=== PATIENT | female | born 1945 | race Caucasian/White ===

== ENCOUNTER → 2016-07-21 | Outpatient (CLI) | payer MEDICARE, BC ==
--- NOTE | 2016-08-08 02:23 | ECWPNPC ---
PATIENT NAME: MATT MOORE : 1945 GENDER: FEMALE VISIT DATE: 07/21/2016 DISCHARGE DATE: 07/21/16 1009 VISIT LOCKED DATE TIME: PHYSICIAN: ELMIRA ANDREWS RESOURCE: ELMIRA ANDREWS REASON FOR APPOINTMENT 1. BACK HISTORY OF PRESENT ILLNESS HISTORY OF PRESENT ILLNESS: PAIN THE PATIENT DESCRIBES THE PAIN... FALL RISK SCREENING: SCREENING :NO FALLS IN THE PAST YEAR TODAY'S VISIT: NOTES: S/P . RATES PAIN TODAY 07/25 IS NOT CURRENTLY EXPERIENCING THE THROBBING OR RADIATION OF PAIN INTO LEFT LEG. NO N/T INTO LEGS. NO RECENT FALLS.. CURRENT MEDICATIONS TAKING ALPHAGAN P 0.1 % SOLUTION 1 DROP INTO AFFECTED EYE OPHTHALMIC BID TAKING BYETTA 10 MCG PEN 10 MCG/0.04ML SOLUTION PEN-INJECTOR 0.02 ML UP TO 1 HOUR BEFORE BREAKFAST AND EVENING MEAL SUBCUTANEOUS TWICE A DAY TAKING MULTIVITAMIN ADULT TABLET ORALLY TAKING VITAMIN D 1000 UNIT TABLET 1 TABLET ORALLY ONCE A DAY TAKING VITAMIN B COMPLEX TABLET ORALLY DAILY TAKING VITAMIN C & D3/OMID HIPS 500-1000-20 MG-UNIT-MG CAPSULE ORALLY DAILY TAKING COQ-10 100 MG CAPSULE 1 CAPSULE WITH A MEAL ORALLY ONCE A DAY TAKING [id number] COMPLEX TABLET ORALLY DAILY TAKING ASPIR-81 81 MG TABLET DELAYED RELEASE 1 TABLET ORALLY ONCE A DAY TAKING FEMARA 2.5 MG TABLET 1 TABLET ORALLY ONCE A DAY TAKING METFORMIN HCL ER 750 MG TABLET EXTENDED RELEASE 24 HOUR ORAL BID TAKING CRESTOR 10 MG TABLET ORAL ONCE DAILY TAKING RAMIPRIL 5 MG CAPSULE ORAL ONCE DAILY TAKING SERTRALINE HCL 50 MG TABLET ORAL ONCE DAILY TAKING LUMIGAN 0.01 % SOLUTION OPHTHALMIC ONCE DAILY TAKING SPIRONOLACTONE 25 MG TABLET ORAL ONCE DAILY TAKING ATENOLOL 25 MG TABLET ORAL ONCE DAILY NOT-TAKING OMEGA 3-6-9 COMPLEX CAPSULE ORALLY DAILY NOT-TAKING MELOXICAM 15 MG TABLET 1 TABLET ORALLY ONCE A DAY NEEDED MEDICATION LIST REVIEWED AND RECONCILED WITH THE PATIENT PAST MEDICAL HISTORY BREAST CANCER LEFT WITH LYMPHEDEMA DM HTN ALLERGIES NONE SOCIAL HISTORY GENERAL: TOBACCO USE ARE YOU A:NONSMOKER LEARNING BARRIERS / SPECIAL NEEDS ORIENTED TO PLAN OF CARE: PATIENT, PAIN MANAGEMENT PATIENT, ORIENTED TO PLAN OF CARE: PATIENT, PAIN MANAGEMENT PATIENT. NEW PATIENT PAIN DIARY TODAY'S VISITNOTES FROM 0-10, WHAT LEVEL IS YOUR PAIN TODAY?0 PAIN CLINIC PFS, CLERGY, PUBLIC HEALTH REFERRALS PFS REFERRAL NEEDED?NO CLERGY REFERRAL NEEDED?NO PUBLIC HEALTH REFERRAL NEEDED?NO WAS THE PROVIDER NOTIFIED OF ANY PERTINENT INFO?NO PFS REFERRAL NEEDED?NO CLERGY REFERRAL NEEDED?NO PUBLIC HEALTH REFERRAL NEEDED?NO WAS THE PROVIDER NOTIFIED OF ANY PERTINENT INFO?NO REVIEW OF SYSTEMS CONSTITUTIONAL: ANY CHANGE IN YOUR MEDICAL CONDITION? NO . CHILLS NO . FEVER NO . INFECTION: DO YOU HAVE NEW INFECTIONS? NO . DO YOU HAVE HISTORY OF MRSA? NO . MUSCULOSKELETAL: ANY NEW PATTERNS OF PAIN OR NUMBNESS? NO . GASTROENTEROLOGY: ANY NEW CHANGE IN BOWEL CONTROL? NO . GENITOURINARY: ANY NEW CHANGE IN BLADDER CONTROL? NO . IS THERE A CHANCE YOU COULD BE ? NO . HEMATOLOGY/LYMPH: DO YOU TAKE ANY BLOOD THINNERS? (FOR EXAMPLE- COUMADIN, PLAVIX, AGGRENOX, PLATEL, PRADAXA, OR XARELTO) NO . WHEN WAS YOUR LAST DOSE? DATE: TIME: . NEUROLOGY: HAVE YOU FALLEN IN THE PAST 6 MONTHS? NO . ANY NEW EXTREMITY NUMBNESS OR WEAKNESS? NO . CARDIOLOGY: DO YOU HAVE A PACEMAKER OR DEFIBRILLATOR? NO . RESPIRATORY: HAVE YOU BEEN SICK IN THE PAST WEEK? NO . FEVER NO . FLU LIKE SYMPTOMS? NO . COUGH NO . INTEGUMENTARY: DO YOU HAVE ANY RASHES OR OPEN SORES? NO . ALLERGIC/IMMUNO: ARE YOU ALLERGIC TO SHELLFISH OR IV DYE? NO . ANY NEW ALLERGIES? NO . PSYCHIATRIC: DO YOU HAVE THOUGHTS OF HURTING YOURSELF OR SOMEONE ELSE? NO . ARE YOU ABUSED, NEGLECTED, OR IN AN UNSAFE ENVIRONMENT? NO . ENDOCRINOLOGY: ARE YOU DIABETIC? YES A1C IN GOOD CONTROL . OTHER: DO YOU NEED ANY PRESCRIPTIONS? NO . IF YES, PLEASE LIST: ____ . ANY NEW PROBLEMS WITH YOUR MEDICATIONS? NO . WHEN DID YOU LAST EAT? ____ . WHEN DID YOU LAST DRINK? ____ . WHAT DID YOU LAST DRINK? ____ . NAME OF PERSON DRIVING YOU HOME? ____ . DO YOU HAVE ANY OTHER QUESTIONS OR CONCERNS NO . REVIEWED BY: PROVIDER: ELMIRA TINAJERO . VITAL SIGNS WT 287 LBS, HT 65 IN, BP 128/86 MM HG, HR 88 /MIN, RR 16 /MIN, TEMP 98 F,6 F, OXYGEN SAT % 98, SAFE IN ENV? (Y/N) Y, REVIEWED BY: KG. EXAMINATION GENERAL EXAMINATION: PSYCHALERT , ORIENTED X 3 , APPROPRIATE MOOD AND AFFECT . LUNGS:CLEAR TO AUSCULTATION BILATERALLY. HEART:HEART RATE REGULAR. MUSCULOSKELETAL:MUSCLE STRENGTH TESTING 5/5 BILATERAL LOWER EXTREMITIES. ABLE TO RISE EASILY TO STANDING POSITION. MILD TENDERNESS WITH PALPATION OVER SACRUM AND BILATERAL SACRAL ILIAC JOINTS. EXTREMITIES:TRACE-1+EDEMA BILATERAL LOWER EXTREMITIES - LYMEDEMA PRESENT LEFT UPPER EXTREMITY.. SKIN:NO BLISTERS OR OPEN LESIONS. ASSESSMENTS SPONDYLOSIS WITHOUT MYELOPATHY OR RADICULOPATHY, LUMBAR REGION - M47.816 (PRIMARY) SPONDYLOSIS WITHOUT MYELOPATHY OR RADICULOPATHY, LUMBOSACRAL REGION - M47.817 TREATMENT SPONDYLOSIS WITHOUT MYELOPATHY OR RADICULOPATHY, LUMBAR REGION NOTES: CONTINUE EXERCISES AND WALKING. , FALLS CARE PLAN: 1. RECOMMEND REMOVING ALL THROW RUGS. 2. RECOMMEND NIGHT LIGHTS 3. RECOMMEND WEARING RUBBER SOLED SHOES AND TO NOT GO BAREFOOT. 4.. ADVISED TO CHANGE POSITION SLOWLY FROM SUPINE TO STANDING TO AVOID DIZZINESS. 5. ADVISED TO USE ASSISTIVE DEVICE SUCH CANE OR WALKER NEEDED., #128 - SCREENING BMI AND F/U PLAN IN : BMI ABOVE NORMAL TODAY. DISCUSSED WITH PATIENT NUTRITIONAL FOOD CHOICES AND PORTION CONTROL TO ASSIST WITH WEIGHT LOSS. RECCOMMENDED REDUCING SALT, SUGAR, SODA INTAKE. RECOMMEND INCREASE ACTIVITY TO INCLUDE WALKING ON A REGULAR BASIS. PROCEDURE CODES FA211 ESTABILISHED PATIENT [facility] CHARGE G8783 BP SCR PRFRM RCMDD DEFIND SCR INTVL G8730 PAIN ASSESS POS TOOL F/U PLAN DOC 3016F PT SCRND [place]HL[place] USE 1123F ACP DISCUSS/DSCN MKR DOCD 1036F TOBACCO NON-USER 0518F FALL PLAN OF CARE DOCD G8427 DOC MEDS VERIFIED W/PT OR RE G8417 BMI >=30 CALCUATE W/FOLLOWUP 3288F FALL RISK ASSESSMENT DOCD FOLLOW UP 3 MONTHS ELECTRONICALLY SIGNED BY PATTIE PRECIADO ON 08/07/2016 AT 08:36 AM EST DISCLAIMER : THIS IS A VISIT SUMMARY EXTRACTED FROM THE [employer] CHART. IT IS NOT A COPY OF THE [employer] PROGRESS NOTE. MTDD
== END ==
LOC: M PAIN 09:00
PROVIDERS: ATTEND Nurse Practitioner Family
DX: Z09 Encounter for follow-up examination after completed treatment for conditions other than malignant neoplasm (principal); M47.816 Spondylosis without myelopathy or radiculopathy, lumbar region; M47.817 Spondylosis without myelopathy or radiculopathy, lumbosacral region; E11.9 Type 2 diabetes mellitus without complications; I10 Essential (primary) hypertension; Z79.82 Long term (current) use of aspirin; Z79.84 Long term (current) use of oral hypoglycemic drugs; Z85.3 Personal history of malignant neoplasm of breast

== ENCOUNTER → 2016-08-31 | Outpatient (CLI) | payer MEDICARE, BC ==
[~2016-08-31] MED LIST: ALPH0.156 OU; ASPI81TA85 PO; ATEN25TA PO; BIMA01SOL OU; BYET10IN2 SC; COQ1150C PO; GLUC1CAP PO; METF750T PO; MULT1TAB18 PO; RAMI5CA PO; ROSU10TA PO; SERT-141 PO; SPIR25TA2 PO; VITA100041 PO; VITA500T68 PO; VITATAB11 PO; [UNRECOGNIZED DRUG - OTHER] PO
[2016-08-31 13:30] LABS: CALCIUM LEVEL 9.6 MG/DL (8.8-10.2); CREATININE FOR GFR 1.02 MG/DL (0.55-1.02); GLOMERULAR FILTRATION RATE 56.9 (>39); POTASSIUM SERUM 4.6 MEQ/L (3.5-5.1)
--- NOTE | 2016-08-31 17:28 | ECGEPIP ---
Stationary ECG Study [facility] Test Date: 2016-08-31 Pat Name: MATT MOORE Department: Room: - Gender: F Gallery Host: [facility] : 1945 Requested By: TERESA Henderson Order Number: [id number] Reading MD: Anibal Vences Measurements Intervals [place] Rate: 85 P: 37 IN: 137 QRS: 15 QRSD: 86 T: 20 QT: 351 QTc: 419 Interpretive Statements SINUS RHYTHM Somewhat low voltages Prominent R wave in V3 No change from 09/25/15 Electronically Signed On 08-31-2016 17:27:56 EST by Anibal Vences
== END ==
LOC: M LAB 11:45
PROVIDERS: ATTEND Ophthalmology
DX: Z01.818 Encounter for other preprocedural examination (principal); H25.13 Age-related nuclear cataract, bilateral

== ENCOUNTER → 2016-09-12 | Outpatient (CLI) | payer MEDICARE, BC ==
[~2016-09-12] VITALS: Ht 165.1 cm; Wt 130.2 kg
[~2016-09-12] MED LIST changes: +LR 1,000 ML IV SCH
--- NOTE | 2016-09-12 15:06 | ROOR ---
Patient Name: Inez Rg Procedure Date: 09/12/2016 2:30 PM Date of : 1945 Age: 70 Room: [facility] Gender: Female Note Status: Finalized Procedure: Upper GI endoscopy Indications: Dysphagia, Abnormal UGI series Providers: Jase Anglin MD Referring MD: SUMAN CRUZ JR, MD Requesting Provider: Medicines: Monitored Anesthesia Care Complications: No immediate complications. Procedure: Pre-Anesthesia Assessment: - Prior to the procedure, a History and Physical was performed, and patient medications and allergies were reviewed. The patient is competent. The risks and benefits of the procedure and the sedation options and risks were discussed with the patient. All questions were answered and informed consent was obtained. Patient identification and proposed procedure were verified by the physician, the nurse and the central office operator supervisor in the procedure room. Mental Status Examination: alert and oriented. Airway Examination: normal oropharyngeal airway and neck mobility. CV Examination: regular rate and rhythm. Prophylactic Antibiotics: The patient does not require prophylactic antibiotics. Prior Anticoagulants: The patient has taken no previous anticoagulant or antiplatelet agents. ASA Grade Assessment: III - A patient with severe systemic disease. After reviewing the risks and benefits, the patient was deemed in satisfactory condition to undergo the procedure. The anesthesia plan was to use monitored anesthesia care (MAC). Immediately prior to administration of medications, the patient was re-assessed for adequacy to receive sedatives. The heart rate, respiratory rate, oxygen saturations, blood pressure, adequacy of pulmonary ventilation, and response to care were monitored throughout the procedure. The physical status of the patient was re-assessed after the procedure. The Endoscope was introduced through the mouth, and advanced to the third part of duodenum. The upper GI endoscopy was accomplished without difficulty. The patient tolerated the procedure well. Findings: One mild benign-appearing, intrinsic stenosis was found 37 cm from the incisors. This measured less than one cm (in length) and was traversed. A TTS dilator was passed through the scope. Dilation with an 18-19-20 mm balloon dilator was performed to 18 mm. A 3 cm hiatal hernia was present. The exam of the stomach was otherwise normal. The first portion of the duodenum, second portion of the duodenum and third portion of the duodenum were normal. Impression: - Benign-appearing esophageal stenosis. Dilated. - 3 cm hiatal hernia. - Normal first portion of the duodenum, second portion of the duodenum and third portion of the duodenum. - No specimens collected. Recommendation: - Discharge patient to home. - Soft diet for 2 days. - Continue present medications. - Return to endoscopist in 3 weeks. Jase Anglin MD 09/12/2016 3:06:16 PM Number of Addenda: 0 Note Initiated On: 09/12/2016 2:30 PM Estimated Blood Loss: Estimated blood loss was minimal.
[2016-09-12 15:15] VITALS: BP 146/99
== END | disposition home or self-care (01) ==
LOC: M OPP 11:59
PROVIDERS: ATTEND Surgery
DX: K44.9 Diaphragmatic hernia without obstruction or gangrene (principal); K22.2 Esophageal obstruction; I10 Essential (primary) hypertension; E78.00 Pure hypercholesterolemia, unspecified; M19.90 Unspecified osteoarthritis, unspecified site; E66.9 Obesity, unspecified; H40.9 Unspecified glaucoma; Z79.899 Other long term (current) drug therapy; Z79.82 Long term (current) use of aspirin; Z79.84 Long term (current) use of oral hypoglycemic drugs

== ENCOUNTER → 2016-09-14 | Day surgery (SDC) | payer MEDICARE, BC ==
[~2016-09-14] VITALS: Ht 165.1 cm; Wt 130.2 kg
[~2016-09-14] MED LIST changes: +ACETYLCHOLINE OPHTH SOLN 1% 2ML As Ordered ONE; +ACETYLCHOLINE OPHTH SOLN 1% 2ML XX ONE; +BALANCED SALT IRRIGATION SOLUTION 500ML BAG (FOR OR EYE MACHINE) As Ordered ONE; +BALANCED SALT IRRIGATION SOLUTION 500ML BAG (FOR OR EYE MACHINE) XX ONE; +CEFUROXIME 1MG/0.1ML INTRACAMERAL INJ As Ordered ONE; +CEFUROXIME 1MG/0.1ML INTRACAMERAL INJ ICAM ONE; +CYCLOPENTOLATE 2% OPHTH SOLN As Ordered ONE; +CYCLOPENTOLATE 2% OPHTH SOLN OS ONE; +D5W/0.2% SODIUM CHLORIDE 250 ML IV SCH; +HEALON DUET (HEALON 10MG/ML 0.55ML & HEALON ENDOCOAT 30MG/ML 0.85ML) As Ordered ONE; +HEALON DUET (HEALON 10MG/ML 0.55ML & HEALON ENDOCOAT 30MG/ML 0.85ML) IO ONE; +LIDOCAINE 0.75%/EPINEPHRINE 0.025% IN BSS 1ML SYR INTRACAMERAL (OR ONLY) As Ordered ONE; +LIDOCAINE 0.75%/EPINEPHRINE 0.025% IN BSS 1ML SYR INTRACAMERAL (OR ONLY) ICAM ONE; +LIDOCAINE 4% INJ 5 ML AMP XX ONE; -LR 1,000 ML IV SCH; +MIDAZOLAM INJ 2 MG/2 ML VIAL (J2250) As Ordered ONE; +OFLOXACIN 0.3 % (OCUFLOX) OPTH SOL 5ML OS ONE; +PHENYLEPHRINE 2.5% OPHTH SOL 2ML OS ONE; +POVIDONE-IODINE 5% OPHTH PREP SOL 30ML As Ordered ONE; +PROPARACAINE 0.5% OPHTH SOL 15ML OS ONE; -SERT-141 PO; +SERT50TA PO; +TOBRADEX OPHTH OINT 3.5 GM As Ordered ONE; +TOBRADEX OPHTH OINT 3.5 GM XX ONE; +TROPICAMIDE 1% OPHTH SOLN 2 ML OS ONE; +fentaNYL 100 MCG/2 ML INJECTION (J3010) As Ordered ONE
[2016-09-14 13:45] VITALS: BP 118/61
--- NOTE | 2016-09-15 09:31 | RO ---
DATE OF PROCEDURE: 09/14/2016 PREOPERATIVE DIAGNOSES: 1. Visually significant nuclear sclerotic cataract left eye. 2. Pseudoexfoliation, left eye POSTOPERATIVE DIAGNOSES: 1. Visually significant nuclear sclerotic cataract left eye. 2. Pseudoexfoliation, left eye PROCEDURE: Cataract extraction with use of phacoemulsification and placement of intraocular lens ZCB00, 20.5 diopter eye. SURGEON: Willi Hester DO RADAR AIR TRAFFIC CONTROLLER: ANESTHESIA: Local with monitored anesthesia care (MAC). COMPLICATIONS: None. POSTOPERATIVE CONDITION: Stable. INDICATION FOR SURGERY: Blurred vision left eye affecting patient's activities of daily living. DESCRIPTION OF PROCEDURE: The patient was seen in the preoperative area and properly identified. The correct operative eye was identified and marked. Attention was turned to that eye. The patient received topical antibiotics in the preoperative area. The patient then received topical dilating drops consisting of tropicamide and phenylephrine. The patient was then transferred to the operating room. The correct side was reidentified. The patient received topical anesthetics and antibiotics on the surface of the eye. The eye was prepped and draped in a sterile fashion. The upper and lower eyelids were isolated with Tegaderm tape, and the lids were held open with an adjustable speculum. Using a sideport blade, a paracentesis incision was made. Intraocular preservative-free lidocaine was then injected into the anterior chamber. Viscoelastic was then injected into the anterior chamber through the paracentesis. Using a 2.65 mm sharp-tipped keratome, the anterior chamber was entered via a temporal clear corneal incision. A continuous curvilinear capsulorrhexis was created with the aid of a 26-gauge cystotome and Utrata forceps. Hydrodissection was performed with balanced salt solution (BSS) on a blunt cannula until the nucleus was freely mobile. The crystalline lens was phacoemulsified and aspirated. Additional cohesive viscoelastic was placed into the capsular bag to deepen it. A ZCB00, 20.5 diopter lens was placed into the capsular bag and confirmed by visualizing the continuous curvilinear capsulorrhexis. Additional irrigation and aspiration was used to remove cortical material and remaining viscoelastic. The clear corneal incision was hydrated with BSS on a blunt cannula. The lens was well positioned. The incisions were then tested for leaks and found to be negative. The eye was then palpated for appropriate pressure and adjusted accordingly with BSS. The eyelid speculum was then carefully removed. Tobradex ointment was placed in the eye. An eye patch and shield were then secured over the eye. The patient tolerated the procedure well and was discharged to the recovery unit in a stable condition. JACINDA
== END | disposition home or self-care (01) ==
LOC: M SDC 08:43
PROVIDERS: ATTEND Ophthalmology
DX: H25.12 Age-related nuclear cataract, left eye (principal); H25.89 Other age-related cataract; E11.9 Type 2 diabetes mellitus without complications; I10 Essential (primary) hypertension; E78.5 Hyperlipidemia, unspecified; K44.9 Diaphragmatic hernia without obstruction or gangrene; Z92.21 Personal history of antineoplastic chemotherapy; Z92.3 Personal history of irradiation; Z85.3 Personal history of malignant neoplasm of breast; Z79.899 Other long term (current) drug therapy; Z79.82 Long term (current) use of aspirin
CPT/HCPCS: 66984; J2250; J3010; V2632

== ENCOUNTER → 2016-09-27 | Outpatient (CLI) | payer MEDICARE, BC ==
[~2016-09-27] MED LIST changes: -ACETYLCHOLINE OPHTH SOLN 1% 2ML As Ordered ONE; -ACETYLCHOLINE OPHTH SOLN 1% 2ML XX ONE; -BALANCED SALT IRRIGATION SOLUTION 500ML BAG (FOR OR EYE MACHINE) As Ordered ONE; -BALANCED SALT IRRIGATION SOLUTION 500ML BAG (FOR OR EYE MACHINE) XX ONE; -CEFUROXIME 1MG/0.1ML INTRACAMERAL INJ As Ordered ONE; -CEFUROXIME 1MG/0.1ML INTRACAMERAL INJ ICAM ONE; -CYCLOPENTOLATE 2% OPHTH SOLN As Ordered ONE; -CYCLOPENTOLATE 2% OPHTH SOLN OS ONE; -D5W/0.2% SODIUM CHLORIDE 250 ML IV SCH; -HEALON DUET (HEALON 10MG/ML 0.55ML & HEALON ENDOCOAT 30MG/ML 0.85ML) As Ordered ONE; -HEALON DUET (HEALON 10MG/ML 0.55ML & HEALON ENDOCOAT 30MG/ML 0.85ML) IO ONE; -LIDOCAINE 0.75%/EPINEPHRINE 0.025% IN BSS 1ML SYR INTRACAMERAL (OR ONLY) As Ordered ONE; -LIDOCAINE 0.75%/EPINEPHRINE 0.025% IN BSS 1ML SYR INTRACAMERAL (OR ONLY) ICAM ONE; -LIDOCAINE 4% INJ 5 ML AMP XX ONE; -MIDAZOLAM INJ 2 MG/2 ML VIAL (J2250) As Ordered ONE; -OFLOXACIN 0.3 % (OCUFLOX) OPTH SOL 5ML OS ONE; -PHENYLEPHRINE 2.5% OPHTH SOL 2ML OS ONE; -POVIDONE-IODINE 5% OPHTH PREP SOL 30ML As Ordered ONE; -PROPARACAINE 0.5% OPHTH SOL 15ML OS ONE; -TOBRADEX OPHTH OINT 3.5 GM As Ordered ONE; -TOBRADEX OPHTH OINT 3.5 GM XX ONE; -TROPICAMIDE 1% OPHTH SOLN 2 ML OS ONE; -fentaNYL 100 MCG/2 ML INJECTION (J3010) As Ordered ONE
== END ==
LOC: M SLEEP 19:28
PROVIDERS: ATTEND Nurse Practitioner Adult Health
DX: G47.30 Sleep apnea, unspecified (principal)

== ENCOUNTER → 2016-10-05 | Day surgery (SDC) | payer MEDICARE, BC ==
[~2016-10-05] VITALS: Ht 165.1 cm; Wt 59.2 kg
[~2016-10-05] MED LIST changes: +ACETYLCHOLINE OPHTH SOLN 1% 2ML As Ordered ONE; +BALANCED SALT IRRIGATION SOLUTION 500ML BAG (FOR OR EYE MACHINE) As Ordered ONE; +CEFUROXIME 1MG/0.1ML INTRACAMERAL INJ As Ordered ONE; +D5W/0.2% SODIUM CHLORIDE 1,000 ML IV SCH; +HEALON DUET (HEALON 10MG/ML 0.55ML & HEALON ENDOCOAT 30MG/ML 0.85ML) As Ordered ONE; +LIDOCAINE 0.75%/EPINEPHRINE 0.025% IN BSS 1ML SYR INTRACAMERAL (OR ONLY) As Ordered ONE; +MIDAZOLAM INJ 2 MG/2 ML VIAL (J2250) As Ordered ONE; +OFLOXACIN 0.3 % (OCUFLOX) OPTH SOL 5ML OD ONE; +PHENYLEPHRINE 2.5% OPHTH SOL 2ML OD ONE; +POVIDONE-IODINE 5% OPHTH PREP SOL 30ML As Ordered ONE; +PROPARACAINE 0.5% OPHTH SOL 15ML OD ONE; +TOBRADEX OPHTH OINT 3.5 GM As Ordered ONE; +TROPICAMIDE 1% OPHTH SOLN 2 ML OD ONE; +fentaNYL 100 MCG/2 ML INJECTION (J3010) As Ordered ONE
[2016-10-05 10:25] VITALS: BP 138/71
--- NOTE | 2016-10-05 23:52 | RO ---
DATE OF PROCEDURE: 10/05/2016 PREOPERATIVE DIAGNOSES: 1. Visually significant nuclear sclerotic cataract of the right eye. 2. Pseudoexfoliation, right eye POSTOPERATIVE DIAGNOSES: 1. Visually significant nuclear sclerotic cataract of the right eye. 2. Pseudoexfoliation, right eye PROCEDURE: Cataract extraction with use of phacoemulsification and placement of intraocular lens ZCB00, 21.0 diopters, right eye. SURGEON: Willi Hester DO CLINICAL QUALITY ASSURANCE SPECIALIST: ANESTHESIA: Local with monitored anesthesia care (MAC). COMPLICATIONS: None. POSTOPERATIVE CONDITION: Stable. INDICATION FOR SURGERY: Blurred vision right eye affecting patient's activities of daily living. DESCRIPTION OF PROCEDURE: The patient was seen in the preoperative area and properly identified. The correct operative eye was identified and marked. Attention was turned to that eye. The patient received topical antibiotics in the preoperative area. The patient then received topical dilating drops consisting of tropicamide and phenylephrine. The patient was then transferred to the operating room. The correct side was reidentified. The patient received topical anesthetics and antibiotics on the surface of the eye. The eye was prepped and draped in a sterile fashion. The upper and lower eyelids were isolated with Tegaderm tape, and the lids were held open with an adjustable speculum. Using a sideport blade, a paracentesis incision was made. Intraocular preservative-free lidocaine was then injected into the anterior chamber. Viscoelastic was then injected into the anterior chamber through the paracentesis. Using a 2.65 mm sharp-tipped keratome, the anterior chamber was entered via a temporal clear corneal incision. A continuous curvilinear capsulorrhexis was created with the aid of a 26-gauge cystotome and Utrata forceps. Hydrodissection was performed with balanced salt solution (BSS) on a blunt cannula until the nucleus was freely mobile. The crystalline lens was phacoemulsified and aspirated. Additional cohesive viscoelastic was placed into the capsular bag to deepen it. A ZCB00 21.0 diopter lens was placed into the capsular bag and confirmed by visualizing the continuous curvilinear capsulorrhexis. Additional irrigation and aspiration was used to remove cortical material and remaining viscoelastic. The clear corneal incision was hydrated with BSS on a blunt cannula. The lens was well positioned. The incisions were then tested for leaks and found to be negative. The eye was then palpated for appropriate pressure and adjusted accordingly with BSS. Cefuroxime, 0.5cc was injected into the anterior chamber. Resure sealant was placed on the main incision to close it. The eyelid speculum was then carefully removed. Tobradex ointment was placed in the eye. An eye patch and shield were then secured over the eye. The patient tolerated the procedure well and was discharged to the recovery unit in a stable condition. JACINDA
== END | disposition home or self-care (01) ==
LOC: M SDC 07:56
PROVIDERS: ATTEND Ophthalmology
DX: H25.12 Age-related nuclear cataract, left eye (principal); H25.89 Other age-related cataract; E11.9 Type 2 diabetes mellitus without complications; I10 Essential (primary) hypertension; E78.5 Hyperlipidemia, unspecified; Z79.82 Long term (current) use of aspirin; K44.9 Diaphragmatic hernia without obstruction or gangrene; Z92.3 Personal history of irradiation; Z85.3 Personal history of malignant neoplasm of breast; Z92.21 Personal history of antineoplastic chemotherapy; Z79.899 Other long term (current) drug therapy; I89.0 Lymphedema, not elsewhere classified
CPT/HCPCS: 66984; J2250; J3010; V2632

== ENCOUNTER → 2016-12-06 | Outpatient (CLI) | payer MEDICARE, BC ==
[~2016-12-06] MED LIST changes: -ACETYLCHOLINE OPHTH SOLN 1% 2ML As Ordered ONE; -BALANCED SALT IRRIGATION SOLUTION 500ML BAG (FOR OR EYE MACHINE) As Ordered ONE; -CEFUROXIME 1MG/0.1ML INTRACAMERAL INJ As Ordered ONE; +CRES10TA32 PO; -D5W/0.2% SODIUM CHLORIDE 1,000 ML IV SCH; -HEALON DUET (HEALON 10MG/ML 0.55ML & HEALON ENDOCOAT 30MG/ML 0.85ML) As Ordered ONE; -LIDOCAINE 0.75%/EPINEPHRINE 0.025% IN BSS 1ML SYR INTRACAMERAL (OR ONLY) As Ordered ONE; -MIDAZOLAM INJ 2 MG/2 ML VIAL (J2250) As Ordered ONE; -OFLOXACIN 0.3 % (OCUFLOX) OPTH SOL 5ML OD ONE; -PHENYLEPHRINE 2.5% OPHTH SOL 2ML OD ONE; -POVIDONE-IODINE 5% OPHTH PREP SOL 30ML As Ordered ONE; -PROPARACAINE 0.5% OPHTH SOL 15ML OD ONE; -ROSU10TA PO; -TOBRADEX OPHTH OINT 3.5 GM As Ordered ONE; -TROPICAMIDE 1% OPHTH SOLN 2 ML OD ONE; -fentaNYL 100 MCG/2 ML INJECTION (J3010) As Ordered ONE
--- NOTE | 2016-12-27 01:16 | ECWPNPC ---
PATIENT NAME: MATT MOORE : 1945 GENDER: FEMALE VISIT DATE: 12/06/2016 DISCHARGE DATE: 12/06/16940 VISIT LOCKED DATE TIME: PHYSICIAN: ELMIRA ANDREWS RESOURCE: ELMIRA ANDREWS REASON FOR APPOINTMENT 1. BACK HISTORY OF PRESENT ILLNESS HISTORY OF PRESENT ILLNESS: PAIN THE PATIENT DESCRIBES THE PAIN... FALL RISK SCREENING: SCREENING :NO FALLS IN THE PAST YEAR TODAY'S VISIT: NOTES: RATES PAIN TODAY 4/10. DESCRIBES PAIN CONSTANT, ACHING AND SORE. PAIN CENTERED ACROSS LOW BACK WITH NO RADIATION TO HIPS AND OCCASIONALLY HAS THROBBING TO RIGHT LEG. HAS HAD DIFFICULTY WITH PROLONGED STANDING OR WALKING. NO RECENT FALLS. NO NEW N/T IN FEET. . CURRENT MEDICATIONS TAKING ALPHAGAN P 0.1 % SOLUTION 1 DROP INTO AFFECTED EYE OPHTHALMIC BID TAKING BYETTA 10 MCG PEN 10 MCG/0.04ML SOLUTION PEN-INJECTOR 0.02 ML UP TO 1 HOUR BEFORE BREAKFAST AND EVENING MEAL SUBCUTANEOUS TWICE A DAY TAKING MULTIVITAMIN ADULT TABLET ORALLY DAILY TAKING VITAMIN D 1000 UNIT TABLET 1 TABLET ORALLY ONCE A DAY TAKING VITAMIN B COMPLEX TABLET ORALLY DAILY TAKING VITAMIN C & D3/OMID HIPS 500-1000-20 MG-UNIT-MG CAPSULE ORALLY DAILY TAKING COQ-10 100 MG CAPSULE 1 CAPSULE WITH A MEAL ORALLY ONCE A DAY TAKING [id number] COMPLEX TABLET ORALLY DAILY TAKING ASPIR-81 81 MG TABLET DELAYED RELEASE 1 TABLET ORALLY ONCE A DAY TAKING FEMARA 2.5 MG TABLET 1 TABLET ORALLY ONCE A DAY TAKING METFORMIN HCL ER 750 MG TABLET EXTENDED RELEASE 24 HOUR ORAL BID TAKING CRESTOR 10 MG TABLET ORAL ONCE DAILY TAKING RAMIPRIL 5 MG CAPSULE ORAL ONCE DAILY TAKING SERTRALINE HCL 50 MG TABLET ORAL ONCE DAILY TAKING LUMIGAN 0.01 % SOLUTION 1 DROP INTO AFFECTED EYE IN THE EVENING OPHTHALMIC OU DAILY TAKING SPIRONOLACTONE 25 MG TABLET ORAL ONCE DAILY TAKING ATENOLOL 25 MG TABLET ORAL ONCE DAILY TAKING NEXIUM 40 MG CAPSULE DELAYED RELEASE 1 CAPSULE ORALLY ONCE A DAY NOT-TAKING OMEGA 3-6-9 COMPLEX CAPSULE ORALLY DAILY NOT-TAKING MELOXICAM 15 MG TABLET 1 TABLET ORALLY ONCE A DAY NEEDED MEDICATION LIST REVIEWED AND RECONCILED WITH THE PATIENT PAST MEDICAL HISTORY BREAST CANCER LEFT WITH LYMPHEDEMA DM HTN ESOPHAGEAL STRICTURE RICHARD WITH CPAP ALLERGIES NONE REVIEW OF SYSTEMS CONSTITUTIONAL: ANY CHANGE IN YOUR MEDICAL CONDITION? YES PT RECENTLY DIAGNOSED WITH SLEEP APNEA THROUGH A SLEEP STUDY, NOW USING A CPAP AT NIGHT. PT REPORTS SHE HAD AN ESOPHAGEAL DILITATION 09/01. ALSO HAD BILATERAL CATARACTS DONE . CHILLS NO . FEVER NO . INFECTION: DO YOU HAVE NEW INFECTIONS? NO . DO YOU HAVE HISTORY OF MRSA? NO . MUSCULOSKELETAL: ANY NEW PATTERNS OF PAIN OR NUMBNESS? NO . GASTROENTEROLOGY: ANY NEW CHANGE IN BOWEL CONTROL? NO . GENITOURINARY: ANY NEW CHANGE IN BLADDER CONTROL? NO . IS THERE A CHANCE YOU COULD BE ? NO . HEMATOLOGY/LYMPH: DO YOU TAKE ANY BLOOD THINNERS? (FOR EXAMPLE- COUMADIN, PLAVIX, AGGRENOX, PLATEL, PRADAXA, OR XARELTO) NO . WHEN WAS YOUR LAST DOSE? DATE: TIME: . NEUROLOGY: HAVE YOU FALLEN IN THE PAST 6 MONTHS? NO . ANY NEW EXTREMITY NUMBNESS OR WEAKNESS? NO . CARDIOLOGY: DO YOU HAVE A PACEMAKER OR DEFIBRILLATOR? NO . RESPIRATORY: HAVE YOU BEEN SICK IN THE PAST WEEK? NO . FEVER NO . FLU LIKE SYMPTOMS? NO . COUGH NO . INTEGUMENTARY: DO YOU HAVE ANY RASHES OR OPEN SORES? NO . ALLERGIC/IMMUNO: ARE YOU ALLERGIC TO SHELLFISH OR IV DYE? NO . ANY NEW ALLERGIES? NO . PSYCHIATRIC: DO YOU HAVE THOUGHTS OF HURTING YOURSELF OR SOMEONE ELSE? NO . ARE YOU ABUSED, NEGLECTED, OR IN AN UNSAFE ENVIRONMENT? NO . ENDOCRINOLOGY: ARE YOU DIABETIC? YES . OTHER: DO YOU NEED ANY PRESCRIPTIONS? NO . IF YES, PLEASE LIST: ____ . ANY NEW PROBLEMS WITH YOUR MEDICATIONS? NO . WHEN DID YOU LAST EAT? ____ . WHEN DID YOU LAST DRINK? ____ . WHAT DID YOU LAST DRINK? ____ . NAME OF PERSON DRIVING YOU HOME? ____ . DO YOU HAVE ANY OTHER QUESTIONS OR CONCERNS NO . REVIEWED BY: PROVIDER: ELMIRA TINAJERO . VITAL SIGNS WT 293 LBS, HT 65 IN, BMI 48.75 INDEX, BP 141/78 MM HG, HR 75 /MIN, RR 18 /MIN, TEMP 98.2 F, OXYGEN SAT % 96%, SAFE IN ENV? (Y/N) YES, REVIEWED BY: ROLANDO. EXAMINATION GENERAL EXAMINATION: PSYCHALERT , ORIENTED X 3 , APPROPRIATE MOOD AND AFFECT . LUNGS:CLEAR TO AUSCULTATION BILATERALLY. HEART:HEART RATE REGULAR. MUSCULOSKELETAL:MUSCLE STRENGTH TESTING 5/5 BILATERAL LOWER EXTREMITIES. ABLE TO RISE EASILY TO STANDING POSITION. MILD TENDERNESS WITH PALPATION OVER SACRUM AND RIGHT SIJ. FEW TRIGGER POINTS IDENTIFIED IN THIS AREA.. EXTREMITIES:- LYMEDEMA PRESENT LEFT UPPER EXTREMITY.. SKIN:NO BLISTERS OR OPEN LESIONS. ASSESSMENTS SPONDYLOSIS WITHOUT MYELOPATHY OR RADICULOPATHY, LUMBAR REGION - M47.816 (PRIMARY) SPONDYLOSIS WITHOUT MYELOPATHY OR RADICULOPATHY, LUMBOSACRAL REGION - M47.817 TREATMENT SPONDYLOSIS WITHOUT MYELOPATHY OR RADICULOPATHY, LUMBAR REGION INJECTION FACET JOINT/NERVE SHANNA/ELMIRA DAS 12/06/2016 9:26:11 AM > BILATERAL THERAPEUTIC L4-5, L5-S1 FACET BLOCK NOTES: CONTINUE CURRENT MEDS. PROCEDURE CODES FA211 ESTABILISHED PATIENT [facility] FACILITY CHARGE G8730 PAIN ASSESS POS TOOL F/U PLAN DOC G8427 DOC MEDS VERIFIED W/PT OR RE DISPOSITION & COMMUNICATION FOLLOW UP AFTER INJECTION (REASON: CHECK AUTH FOR THERAPEUTIC L4-5, L5-S-1 BILATERAL FACET BLOCK.) ELECTRONICALLY SIGNED BY PATTIE PRECIADO ON 12/25/2016 AT 08:40 AM EDT DISCLAIMER : THIS IS A VISIT SUMMARY EXTRACTED FROM THE [employer] CHART. IT IS NOT A COPY OF THE [employer] PROGRESS NOTE. JACINDA
== END ==
LOC: M PAIN 09:00
PROVIDERS: ATTEND Nurse Practitioner Family
DX: G89.29 Other chronic pain (principal); M47.816 Spondylosis without myelopathy or radiculopathy, lumbar region; M47.817 Spondylosis without myelopathy or radiculopathy, lumbosacral region; E11.9 Type 2 diabetes mellitus without complications; I10 Essential (primary) hypertension; G47.33 Obstructive sleep apnea (adult) (pediatric); Z79.82 Long term (current) use of aspirin; Z79.84 Long term (current) use of oral hypoglycemic drugs; Z79.899 Other long term (current) drug therapy

== ENCOUNTER → 2016-12-13 | Outpatient (CLI) | payer MEDICARE, BC ==
[~2016-12-13] MED LIST changes: +BUPIVACAINE HCL 0.25% 30 ML VIAL As Ordered ONE; +ISOVUE-M 300 61% 15ML VIAL (Q9967) As Ordered ONE; +LIDOCAINE 1% SDV INJ 30 ML VIAL As Ordered ONE; +TRIAMCINOLONE ACETONIDE SUSP 40 MG/ML VIAL (J3301) As Ordered ONE; +diazePAM 5 MG TAB As Ordered ONE; +oxyCODONE 5MG TAB As Ordered ONE
--- NOTE | 2016-12-13 17:46 | REP ---
FACET BLOCK: The images were reviewed with Dr. Pond. The patient has a history of low back pain and spondylosis. The portable C-Arm was provided in the OR for Dr. Wilson for fluoroscopic guidance. Four intraoperative fluoro spot films were obtained for needle placement verification for bilateral lumbar facet injection. The films are on the PACs system and are available for review. 38 seconds of fluoroscopy time was utilized for this procedure. Reviewed by LESLEY Shipman 12/14/2016 12:34 PEdited and Signed by Jonatan Pond MD 12/14/2016 07:22 P
--- NOTE | 2016-12-17 23:22 | ECWPNPC ---
PATIENT NAME: MATT MOORE : 1945 GENDER: FEMALE VISIT DATE: 12/13/2016 DISCHARGE DATE: 12/13/16 1031 VISIT LOCKED DATE TIME: PHYSICIAN: JALEN WONG RESOURCE: JALEN WONG REASON FOR APPOINTMENT 1. SAIDA,THERA LUMBAR FACET HISTORY OF PRESENT ILLNESS HISTORY OF PRESENT ILLNESS: PAIN THE PATIENT DESCRIBES THE PAIN... FALL RISK SCREENING: SCREENING :NO FALLS IN THE PAST YEAR CURRENT MEDICATIONS TAKING ALPHAGAN P 0.1 % SOLUTION 1 DROP INTO AFFECTED EYE OPHTHALMIC BID, NOTES: 12-12-16899 TAKING BYETTA 10 MCG PEN 10 MCG/0.04ML SOLUTION PEN-INJECTOR 0.02 ML UP TO 1 HOUR BEFORE BREAKFAST AND EVENING MEAL SUBCUTANEOUS TWICE A DAY, NOTES: 12-12-16899 TAKING MULTIVITAMIN ADULT TABLET ORALLY DAILY, NOTES: 12-12-16899 TAKING VITAMIN D 1000 UNIT TABLET 1 TABLET ORALLY ONCE A DAY, NOTES: 12-12-16899 TAKING VITAMIN B COMPLEX TABLET ORALLY DAILY, NOTES: 12-12-16899 TAKING VITAMIN C & D3/OMID HIPS 500-1000-20 MG-UNIT-MG CAPSULE ORALLY DAILY, NOTES: 12-12-16899 TAKING COQ-10 100 MG CAPSULE 1 CAPSULE WITH A MEAL ORALLY ONCE A DAY TAKING [id number] COMPLEX TABLET ORALLY DAILY TAKING ASPIR-81 81 MG TABLET DELAYED RELEASE 1 TABLET ORALLY ONCE A DAY, NOTES: 12-12-16899 TAKING FEMARA 2.5 MG TABLET 1 TABLET ORALLY ONCE A DAY, NOTES: 12-12-16899 TAKING METFORMIN HCL ER 750 MG TABLET EXTENDED RELEASE 24 HOUR ORAL BID, NOTES: 12-12-16899 TAKING CRESTOR 10 MG TABLET ORAL ONCE DAILY, NOTES: 12-12-16899 TAKING RAMIPRIL 5 MG CAPSULE ORAL ONCE DAILY, NOTES: 12-12-16899 TAKING SERTRALINE HCL 50 MG TABLET ORAL ONCE DAILY, NOTES: 12-12-16799 TAKING LUMIGAN 0.01 % SOLUTION 1 DROP INTO AFFECTED EYE IN THE EVENING OPHTHALMIC OU DAILY, NOTES: 12-12-16799 TAKING SPIRONOLACTONE 25 MG TABLET ORAL ONCE DAILY, NOTES: 12-12-16799 TAKING ATENOLOL 25 MG TABLET ORAL ONCE DAILY, NOTES: 12-12-16799 TAKING NEXIUM 40 MG CAPSULE DELAYED RELEASE 1 CAPSULE ORALLY ONCE A DAY, NOTES: 12-12-16 0800 NOT-TAKING OMEGA 3-6-9 COMPLEX CAPSULE ORALLY DAILY NOT-TAKING MELOXICAM 15 MG TABLET 1 TABLET ORALLY ONCE A DAY NEEDED MEDICATION LIST REVIEWED AND RECONCILED WITH THE PATIENT PAST MEDICAL HISTORY BREAST CANCER LEFT WITH LYMPHEDEMA DM HTN ESOPHAGEAL STRICTURE RICHARD WITH CPAP ALLERGIES NONE REVIEW OF SYSTEMS CONSTITUTIONAL: ANY CHANGE IN YOUR MEDICAL CONDITION? NO . CHILLS NO . FEVER NO . INFECTION: DO YOU HAVE NEW INFECTIONS? NO . DO YOU HAVE HISTORY OF MRSA? NO . MUSCULOSKELETAL: ANY NEW PATTERNS OF PAIN OR NUMBNESS? NO . GASTROENTEROLOGY: ANY NEW CHANGE IN BOWEL CONTROL? NO . GENITOURINARY: ANY NEW CHANGE IN BLADDER CONTROL? NO . IS THERE A CHANCE YOU COULD BE ? NO . HEMATOLOGY/LYMPH: DO YOU TAKE ANY BLOOD THINNERS? (FOR EXAMPLE- COUMADIN, PLAVIX, AGGRENOX, PLATEL, PRADAXA, OR XARELTO) NO . WHEN WAS YOUR LAST DOSE? DATE: TIME: . NEUROLOGY: HAVE YOU FALLEN IN THE PAST 6 MONTHS? NO . ANY NEW EXTREMITY NUMBNESS OR WEAKNESS? NO . CARDIOLOGY: DO YOU HAVE A PACEMAKER OR DEFIBRILLATOR? NO . RESPIRATORY: HAVE YOU BEEN SICK IN THE PAST WEEK? NO . FEVER NO . FLU LIKE SYMPTOMS? NO . COUGH NO . INTEGUMENTARY: DO YOU HAVE ANY RASHES OR OPEN SORES? NO . ALLERGIC/IMMUNO: ARE YOU ALLERGIC TO SHELLFISH OR IV DYE? NO . ANY NEW ALLERGIES? NO . PSYCHIATRIC: DO YOU HAVE THOUGHTS OF HURTING YOURSELF OR SOMEONE ELSE? NO . ARE YOU ABUSED, NEGLECTED, OR IN AN UNSAFE ENVIRONMENT? NO . ENDOCRINOLOGY: ARE YOU DIABETIC? YES . OTHER: DO YOU NEED ANY PRESCRIPTIONS? NO . IF YES, PLEASE LIST: ____ . ANY NEW PROBLEMS WITH YOUR MEDICATIONS? NO . WHEN DID YOU LAST EAT? ____1900 LAST NIGHT . WHEN DID YOU LAST DRINK? ____1900 12-12-16 . WHAT DID YOU LAST DRINK? ____SODA . NAME OF PERSON DRIVING YOU HOME? ED MILLER____ . DO YOU HAVE ANY OTHER QUESTIONS OR CONCERNS NO . REVIEWED BY: PROVIDER: . VITAL SIGNS WT 287 LBS, HT 65 IN, BMI 47.75 INDEX, BP 139/74 MM HG, HR 72 /MIN, RR 16 /MIN, TEMP 96.9 F, OXYGEN SAT % 98%, NA INITIALS SC 09:14. ASSESSMENTS SPONDYLOSIS WITHOUT MYELOPATHY OR RADICULOPATHY, LUMBAR REGION - M47.816 (PRIMARY) SPONDYLOSIS WITHOUT MYELOPATHY OR RADICULOPATHY, LUMBOSACRAL REGION - M47.817 PROCEDURES PN LUMBAR FACET BLOCK THERAPEUTIC PRE PROCEDURE DIAGNOSIS LUMBAR SPONDYLOSIS, LUMBOSACRAL SPONDYLOSIS POST PROCEDURE DIAGNOSIS LUMBAR SPONDYLOSIS, LUMBOSACRAL SPONDYLOSIS PROCEDURE BILATERAL L4-L5 AND BILATERAL L5-S1 LUMBAR FACET THERAPEUTIC BLOCK SURGEON DR. JALEN WONG SPECIAL OFFICER NONE ANESTHESIA LOCAL PRE PROCEDURE NOTE THE PATIENT HAS A HISTORY OF CHRONIC LOW BACK PAIN. I EVALUATE THE PATIENT AND REVIEWED THE CHART. I WENT OVER THE RISKS, ALTERNATIVES, AND BENEFITS ASSOCIATED WITH THIS PROCEDURE. THE PATIENT WOULD LIKE TO PROCEED AND GIVE CONSENT TO PERFORMED THE PROCEDURE. THE PATIENT DENIES UNEXPLAINABLE WEIGHT LOSS, FEVER, CHILLS, OR NEW CHANGES IN URINARY OR BOWEL CONTROL DESCRIPTION OF PROCEDURE THE PATIENT WAS BROUGHT TO THE PROCEDURE ROOM AND PLACED IN THE PRONE POSITION. THE LUMBOSACRAL AREA WAS CLEANED WITH CHLORAPREP SOLUTION AND DRAPED ASEPTICALLY. THE PROCEDURE WAS DONE UNDER STERILE CONDITIONS. I CHECKED LATERALITY AND THE LEVEL WHERE THE PROCEDURE WAS GOING TO BE PERFORMED WITH THE PATIENT AND THE SUPPORTING STAFF AT THE MOMENT OF THE TIME OUT IN THE PROCEDURE ROOM. UNDER FLUOROSCOPIC GUIDANCE, THE TARGET POINT WAS SELECTED AT THE RIGHT AND LEFT L4-L5 AND RIGHT AND LEFT L5-S1 FACET JOINT. TARGET POINT WAS SELECTED AFTER LATERAL ROTATION AND TILT OF THE MAGNIFIER OF THE C-ARM. LIDOCAINE 0.5% WAS USED TO NUMB THE SKIN AND THE SUBCUTANEOUS TISSUE BELOW IT. SPINAL NEEDLES, 22-GAUGE, WERE ADVANCED UNDER FLUOROSCOPIC GUIDANCE AND FOLLOWING PATIENT FEEDBACK UNTIL THE TARGETS WERE TOUCHED. THE POSITION OF THE NEEDLES WAS VERIFIED WITH AP AND LATERAL VIEWS. AFTER PROPER POSITION OF THE NEEDLES WAS ACHIEVED, ISOVUE-M DYE 30% 0.1 ML WAS INJECTED SHOWING ADEQUATE SPREAD OF THE DYE. THEN A SOLUTION OF 1.9 ML OF BUPIVACAINE 0.125% OF KENALOG 10 MG WAS INJECTED AT EACH SITE. THERE WAS NO EVIDENCE OF BLOOD, PARESTHESIA OR CEREBROSPINAL FLUID DURING THE PROCEDURE. THE PATIENT WAS SENT TO THE RECOVERY ROOM. THE PATIENT WAS MOVING THE EXTREMITIES AND DOING WELL. THERE WAS NO COMPLICATION DURING THE PROCEDURE. FLUOROSCOPY TIME WAS 38 SECONDS POST PROCEDURE NOTE THE PATIENT WILL BE SEEN IN A FOLLOW UP IN THE NEXT FEW WEEKS. INSTRUCTIONS WERE GIVEN, QUESTIONS WERE ANSWERED, AND THE PATIENT EXPRESSED UNDERSTANDING AND AGREES WITH THE PLAN. I, ADAN RAMOS, DOCUMENTED THE ABOVE INFORMATION ACTING A SCRIBE FOR DR. WONG. I HAVE REVIEWED THE ABOVE DOCUMENT, WRITTEN BY ADAN DAVENPORTIBRadha AND I VERIFY THAT IT IS ACCURATE DIAGNOSTIC IMAGING [facility] FACET BLOCK (PAIN)[id number] PROCEDURE CODES 16288 INJ PARAVERT F JNT L/S 1 LEV 94213 INJ PARAVERT F JNT L/S 2 LEV 6045F RADXPS IN END [id number] PXD DISPOSITION & COMMUNICATION FOLLOW UP 3 WEEKS ELECTRONICALLY SIGNED BY JALEN WONG MD ON 12/17/2016 AT 05:22 PM EDT DISCLAIMER : THIS IS A VISIT SUMMARY EXTRACTED FROM THE [employer] CHART. IT IS NOT A COPY OF THE [employer] PROGRESS NOTE. MTDD
== END ==
LOC: M PAIN 08:40
PROVIDERS: ATTEND Anesthesiology
DX: G89.29 Other chronic pain (principal); M47.816 Spondylosis without myelopathy or radiculopathy, lumbar region; M47.817 Spondylosis without myelopathy or radiculopathy, lumbosacral region; E11.9 Type 2 diabetes mellitus without complications; I10 Essential (primary) hypertension; G47.30 Sleep apnea, unspecified; Z79.82 Long term (current) use of aspirin; Z79.84 Long term (current) use of oral hypoglycemic drugs; Z79.899 Other long term (current) drug therapy
CPT/HCPCS: 64493; 64494; J3301; Q9967

== ENCOUNTER → 2017-01-04 | Outpatient (CLI) | payer MEDICARE, BC ==
[~2017-01-04] MED LIST changes: -BUPIVACAINE HCL 0.25% 30 ML VIAL As Ordered ONE; -ISOVUE-M 300 61% 15ML VIAL (Q9967) As Ordered ONE; -LIDOCAINE 1% SDV INJ 30 ML VIAL As Ordered ONE; -TRIAMCINOLONE ACETONIDE SUSP 40 MG/ML VIAL (J3301) As Ordered ONE; +VITA-182 PO; -VITA100041 PO; -diazePAM 5 MG TAB As Ordered ONE; -oxyCODONE 5MG TAB As Ordered ONE
--- NOTE | 2017-01-24 01:28 | ECWPNPC ---
PATIENT NAME: MATT MOORE : 1945 GENDER: FEMALE VISIT DATE: 01/04/2017 DISCHARGE DATE: 01/04/17941 VISIT LOCKED DATE TIME: PHYSICIAN: ELMIRA ANDREWS RESOURCE: ELMIRA ANDREWS REASON FOR APPOINTMENT 1. POST FACET BLOCK HISTORY OF PRESENT ILLNESS HISTORY OF PRESENT ILLNESS: PAIN THE PATIENT DESCRIBES THE PAIN... FALL RISK SCREENING: SCREENING :NO FALLS IN THE PAST YEAR TODAY'S VISIT: NOTES: S/P BILATERAL LUMBAR FACET BLOCK/THERAPEUTIC. NOTES THAT THIS STOPPED THE PAIN RADIATING INTO LEGS BUT STILL HAS SOME DIFFICULTY WITH WALKING AND ASTANDING. PAIN REMAINS WORSE IN EVENING. PAIN LEVEL PRIOR TO PROCEDURE WAS 8/10 AND POST PROCEDURE WAS 2-3/10. . CURRENT MEDICATIONS TAKING ALPHAGAN P 0.1 % SOLUTION 1 DROP INTO AFFECTED EYE OPHTHALMIC BID, NOTES: 12-12-16899 TAKING BYETTA 10 MCG PEN 10 MCG/0.04ML SOLUTION PEN-INJECTOR 0.02 ML UP TO 1 HOUR BEFORE BREAKFAST AND EVENING MEAL SUBCUTANEOUS TWICE A DAY, NOTES: 12-12-16899 TAKING MULTIVITAMIN ADULT TABLET ORALLY DAILY, NOTES: 12-12-16899 TAKING VITAMIN D 1000 UNIT TABLET 1 TABLET ORALLY ONCE A DAY, NOTES: 12-12-16899 TAKING VITAMIN B COMPLEX TABLET ORALLY DAILY, NOTES: 12-12-16899 TAKING VITAMIN C & D3/OMID HIPS 500-1000-20 MG-UNIT-MG CAPSULE ORALLY DAILY, NOTES: 12-12-16899 TAKING COQ-10 100 MG CAPSULE 1 CAPSULE WITH A MEAL ORALLY ONCE A DAY TAKING [id number] COMPLEX TABLET ORALLY DAILY TAKING ASPIR-81 81 MG TABLET DELAYED RELEASE 1 TABLET ORALLY ONCE A DAY, NOTES: 12-12-16899 TAKING FEMARA 2.5 MG TABLET 1 TABLET ORALLY ONCE A DAY, NOTES: 12-12-16899 TAKING METFORMIN HCL ER 750 MG TABLET EXTENDED RELEASE 24 HOUR ORAL BID, NOTES: 12-12-16899 TAKING CRESTOR 10 MG TABLET ORAL ONCE DAILY, NOTES: 12-12-16899 TAKING RAMIPRIL 5 MG CAPSULE ORAL ONCE DAILY, NOTES: 12-12-16899 TAKING SERTRALINE HCL 50 MG TABLET ORAL ONCE DAILY, NOTES: 12-12-16799 TAKING LUMIGAN 0.01 % SOLUTION 1 DROP INTO AFFECTED EYE IN THE EVENING OPHTHALMIC OU DAILY, NOTES: 12-12-16799 TAKING SPIRONOLACTONE 25 MG TABLET ORAL ONCE DAILY, NOTES: 12-12-16799 TAKING ATENOLOL 25 MG TABLET ORAL ONCE DAILY, NOTES: 12-12-16799 TAKING NEXIUM 40 MG CAPSULE DELAYED RELEASE 1 CAPSULE ORALLY ONCE A DAY, NOTES: 12-12-16799 NOT-TAKING OMEGA 3-6-9 COMPLEX CAPSULE ORALLY DAILY NOT-TAKING MELOXICAM 15 MG TABLET 1 TABLET ORALLY ONCE A DAY NEEDED MEDICATION LIST REVIEWED AND RECONCILED WITH THE PATIENT PAST MEDICAL HISTORY BREAST CANCER LEFT WITH LYMPHEDEMA DM HTN ESOPHAGEAL STRICTURE RICHARD WITH CPAP ALLERGIES NONE REVIEW OF SYSTEMS REVIEWED BY: PROVIDER: ELMIRA TINAJERO . CONSTITUTIONAL: ANY CHANGE IN YOUR MEDICAL CONDITION? NO . CHILLS NO . FEVER NO . INFECTION: DO YOU HAVE NEW INFECTIONS? NO . DO YOU HAVE HISTORY OF MRSA? NO . MUSCULOSKELETAL: ANY NEW PATTERNS OF PAIN OR NUMBNESS? NO . GASTROENTEROLOGY: ANY NEW CHANGE IN BOWEL CONTROL? NO . GENITOURINARY: ANY NEW CHANGE IN BLADDER CONTROL? NO . IS THERE A CHANCE YOU COULD BE ? NO . HEMATOLOGY/LYMPH: DO YOU TAKE ANY BLOOD THINNERS? (FOR EXAMPLE- COUMADIN, PLAVIX, AGGRENOX, PLATEL, PRADAXA, OR XARELTO) NO . WHEN WAS YOUR LAST DOSE? DATE: TIME: . NEUROLOGY: HAVE YOU FALLEN IN THE PAST 6 MONTHS? NO . ANY NEW EXTREMITY NUMBNESS OR WEAKNESS? NO . CARDIOLOGY: DO YOU HAVE A PACEMAKER OR DEFIBRILLATOR? NO . RESPIRATORY: HAVE YOU BEEN SICK IN THE PAST WEEK? NO . FEVER NO . FLU LIKE SYMPTOMS? NO . CPAP YES - IS MORE RESTED . COUGH NO . INTEGUMENTARY: DO YOU HAVE ANY RASHES OR OPEN SORES? NO . ALLERGIC/IMMUNO: ARE YOU ALLERGIC TO SHELLFISH OR IV DYE? NO . ANY NEW ALLERGIES? NO . PSYCHIATRIC: DO YOU HAVE THOUGHTS OF HURTING YOURSELF OR SOMEONE ELSE? NO . ARE YOU ABUSED, NEGLECTED, OR IN AN UNSAFE ENVIRONMENT? NO . ENDOCRINOLOGY: ARE YOU DIABETIC? YES - BLOOD SUGARS UNDER GOOD CONTROL . OTHER: DO YOU NEED ANY PRESCRIPTIONS? NO . IF YES, PLEASE LIST: ____ . ANY NEW PROBLEMS WITH YOUR MEDICATIONS? NO . WHEN DID YOU LAST EAT? ____ . WHEN DID YOU LAST DRINK? ____ . WHAT DID YOU LAST DRINK? ____ . NAME OF PERSON DRIVING YOU HOME? ____ . DO YOU HAVE ANY OTHER QUESTIONS OR CONCERNS NO . VITAL SIGNS WT 287 LBS, HT 65 IN, BMI 47.75 INDEX, BP 130/81 MM HG, HR 84 /MIN, RR 18 /MIN, TEMP 97.9 F, OXYGEN SAT % 96, REVIEWED BY: VD. EXAMINATION GENERAL EXAMINATION: PSYCHALERT , ORIENTED X 3 , APPROPRIATE MOOD AND AFFECT . LUNGS:CLEAR TO AUSCULTATION BILATERALLY. HEART:HEART RATE REGULAR. MUSCULOSKELETAL:TENDER WITH PALPATION OVER LEFT > RIGHT LUMBOSACRAL AXIS. GAIT STIFF. SLOW TO RISE TO STANDING POSITION. EXTREMITIES:LYMPHADEMA PRESENT LEFT UPPER EXTREMITY. ASSESSMENTS SPONDYLOSIS WITHOUT MYELOPATHY OR RADICULOPATHY, LUMBAR REGION - M47.816 (PRIMARY) SPONDYLOSIS WITHOUT MYELOPATHY OR RADICULOPATHY, LUMBOSACRAL REGION - M47.817 TREATMENT SPONDYLOSIS WITHOUT MYELOPATHY OR RADICULOPATHY, LUMBAR REGION NOTES: CONTINUE, WALKING, EXERCISES AND STRETCHESCONSIDER OPTION OF DIAGNOSTIC LUMBAT FACET BLOCK AND POSSIBLE RADIOFREQUENCY. PROCEDURE CODES FA211 ESTABILISHED PATIENT [facility] FACILITY CHARGE G8730 PAIN ASSESS POS TOOL F/U PLAN DOC G8427 DOC MEDS VERIFIED W/PT OR RE DISPOSITION & COMMUNICATION FOLLOW UP 2-3 MONTHS ELECTRONICALLY SIGNED BY PATTIE PRECIADO ON 01/23/2017 AT 05:17 PM EDT DISCLAIMER : THIS IS A VISIT SUMMARY EXTRACTED FROM THE [email or web address] CHART. IT IS NOT A COPY OF THE [email or web address] PROGRESS NOTE. JACINDA
== END ==
LOC: M PAIN 09:00
PROVIDERS: ATTEND Nurse Practitioner Family
DX: M47.816 Spondylosis without myelopathy or radiculopathy, lumbar region (principal); M47.817 Spondylosis without myelopathy or radiculopathy, lumbosacral region; Z79.84 Long term (current) use of oral hypoglycemic drugs; Z79.82 Long term (current) use of aspirin; Z79.899 Other long term (current) drug therapy; E11.9 Type 2 diabetes mellitus without complications; I10 Essential (primary) hypertension; G47.30 Sleep apnea, unspecified

== ENCOUNTER → 2017-02-21 | Outpatient (CLI) | payer MEDICARE, BC ==
--- NOTE | 2017-02-21 10:02 | RADONC ---
RADIATION ONCOLOGY FOLLOWUP NOTE: DATE: 02/21/2017 CHART NUMBER: [id number] DIAGNOSIS: Left breast cancer. STAGE: III A, [id number] ECOG PERFORMANCE STATUS: 0 Ms. 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 The patient presents today reporting that she is doing quite well with no complaints at this time related to her radiation therapy or disease. She has no chest wall or bone pain. REVIEW OF SYSTEMS: he patient's review of systems is positive for just arthritic type pain but is otherwise noncontributory. She denies nausea, vomiting, fevers, chills, night sweats, diplopia, headaches, anxiety or depression, anorexia, weight loss, visual disturbances, chest pain, urinary or bowel difficulties, bone pain, or neurological problems. PHYSICAL EXAMINATION: The patient is a well-developed, well-nourished female in no acute distress. HEENT exam is normocephalic, atraumatic. Extraocular movements are intact. There is no palpable cervical, supraclavicular, infraclavicular, axillary, or inguinal lymphadenopathy present. Lungs are clear to auscultation and percussion. Heart has a regular rate and rhythm. Abdomen is benign with no hepatosplenomegaly, masses, or tenderness. Breast examination: The patient's bilateral mastectomy scars show no evidence of showed no evidence of nodularity ulceration residual or recurrent disease. Skeletal examination reveals no tenderness to pressure or percussion of the bony skeleton. Extremities reveal no clubbing, cyanosis, or edema. Neurologic exam is grossly intact, as is the remainder of the physical examination. ASSESSMENT: The patient is clinically DESHAWN at this time and will be seen by us again in 1 year for further followup. She will also continue be followed by her other physicians as well. cc: Nilson Traylor Jr, MD Kara Kort, MD Mijung Lee, MD
== END ==
LOC: M ONCR 09:08
PROVIDERS: ATTEND Radiology Radiation Oncology
DX: C50.812 Malignant neoplasm of overlapping sites of left female breast (principal)

== ENCOUNTER → 2017-04-03 | Outpatient (CLI) | payer MEDICARE, BC ==
--- NOTE | 2017-04-06 01:39 | ECWPNPC ---
PATIENT NAME: MATT MOORE : 1945 GENDER: FEMALE VISIT DATE: 04/03/2017 DISCHARGE DATE: 04/03/17926 VISIT LOCKED DATE TIME: PHYSICIAN: ELMIRA ANDREWS RESOURCE: ELMIRA ANDREWS REASON FOR APPOINTMENT 1. BACK HISTORY OF PRESENT ILLNESS HISTORY OF PRESENT ILLNESS: PAIN THE PATIENT DESCRIBES THE PAIN... FALL RISK SCREENING: SCREENING :NO FALLS IN THE PAST YEAR TODAY'S VISIT: NOTES: RATES PAIN LEVEL TODAY 2/10. DESXRIBES PAIN CONSTANT, ACHING AND IS NOTING A SENSE OF PRESSSURE WHEN WALKING.. IS NOTICING THAT THIS IS RADIATING DOWN LEFT LEG TO LEVEL OF THE FOOT. NOTES THIS IS UALLY PRESENT IN THE EVENING. IS NOTING THAT MEDICAL MARIJUANA HAS BEEN VERY HELPFUL FOR THIS. IS NOTICING RETURN OF SENSATION IN LEFT ARM WHICH HAS BEEN NUMB SINCE LEFT MASTECTOMY. . CURRENT MEDICATIONS TAKING ALPHAGAN P 0.1 % SOLUTION 1 DROP INTO AFFECTED EYE OPHTHALMIC BID TAKING BYETTA 10 MCG PEN 10 MCG/0.04ML SOLUTION PEN-INJECTOR 0.02 ML UP TO 1 HOUR BEFORE BREAKFAST AND EVENING MEAL SUBCUTANEOUS TWICE A DAY TAKING MULTIVITAMIN ADULT TABLET ORALLY DAILY TAKING VITAMIN D 1000 UNIT TABLET 1 TABLET ORALLY ONCE A DAY TAKING VITAMIN B COMPLEX TABLET ORALLY DAILY TAKING VITAMIN C & D3/OMID HIPS 500-1000-20 MG-UNIT-MG CAPSULE ORALLY DAILY TAKING COQ-10 100 MG CAPSULE 1 CAPSULE WITH A MEAL ORALLY ONCE A DAY TAKING [id number] COMPLEX TABLET ORALLY DAILY TAKING ASPIR-81 81 MG TABLET DELAYED RELEASE 1 TABLET ORALLY ONCE A DAY TAKING FEMARA 2.5 MG TABLET 1 TABLET ORALLY ONCE A DAY TAKING METFORMIN HCL ER 750 MG TABLET EXTENDED RELEASE 24 HOUR ORAL BID TAKING CRESTOR 10 MG TABLET ORAL ONCE DAILY TAKING RAMIPRIL 5 MG CAPSULE ORAL ONCE DAILY TAKING SERTRALINE HCL 50 MG TABLET ORAL ONCE DAILY TAKING LUMIGAN 0.01 % SOLUTION 1 DROP INTO AFFECTED EYE IN THE EVENING OPHTHALMIC OU DAILY TAKING SPIRONOLACTONE 25 MG TABLET ORAL ONCE DAILY TAKING ATENOLOL 25 MG TABLET ORAL ONCE DAILY TAKING NEXIUM 40 MG CAPSULE DELAYED RELEASE 1 CAPSULE ORALLY ONCE A DAY NOT-TAKING OMEGA 3-6-9 COMPLEX CAPSULE ORALLY DAILY NOT-TAKING MELOXICAM 15 MG TABLET 1 TABLET ORALLY ONCE A DAY NEEDED MEDICATION LIST REVIEWED AND RECONCILED WITH THE PATIENT PAST MEDICAL HISTORY BREAST CANCER LEFT WITH LYMPHEDEMA DM HTN ESOPHAGEAL STRICTURE RICHARD WITH CPAP ALLERGIES NONE SOCIAL HISTORY GENERAL: TOBACCO USE ARE YOU A:NONSMOKER ALCOHOL SCREENING POINTS1 INTERPRETATIONNEGATIVE RECREATIONAL DRUG USE DRUG USE?NO HAS MEDICAL MARIJUANA CAFFEINE CAFFEINE USE?NO PAIN CLINIC PFS, CLERGY, PUBLIC HEALTH REFERRALS PFS REFERRAL NEEDED?NO CLERGY REFERRAL NEEDED?NO PUBLIC HEALTH REFERRAL NEEDED?NO WAS THE PROVIDER NOTIFIED OF ANY PERTINENT INFO?NO HAS THE PATIENT BEEN EDUCATED REGARDING HIS/HER PLAN OF CARE?YES HAS THE PATIENT BEEN EDUCATED REGARDING PAIN, THE RISK FOR PAIN, THE IMPORTANCE OF EFFECTIVE PAIN MANAGEMENT, AND THE PAIN ASSESSMENT PROCESS?YES PATIENT: ____. REVIEW OF SYSTEMS REVIEWED BY: PROVIDER: ELMIRA TINAJERO . CONSTITUTIONAL: ANY CHANGE IN YOUR MEDICAL CONDITION? NO . CHILLS NO . FEVER NO . INFECTION: DO YOU HAVE NEW INFECTIONS? NO . DO YOU HAVE HISTORY OF MRSA? NO . MUSCULOSKELETAL: ANY NEW PATTERNS OF PAIN OR NUMBNESS? NO . GASTROENTEROLOGY: ANY NEW CHANGE IN BOWEL CONTROL? NO . GENITOURINARY: ANY NEW CHANGE IN BLADDER CONTROL? NO . IS THERE A CHANCE YOU COULD BE ? NO . HEMATOLOGY/LYMPH: DO YOU TAKE ANY BLOOD THINNERS? (FOR EXAMPLE- COUMADIN, PLAVIX, AGGRENOX, PLATEL, PRADAXA, OR XARELTO) NO . WHEN WAS YOUR LAST DOSE? DATE: TIME: . NEUROLOGY: HAVE YOU FALLEN IN THE PAST 6 MONTHS? NO . ANY NEW EXTREMITY NUMBNESS OR WEAKNESS? NO . BALANCE DIFFICULTY HAVING DIFFICULTY WITH BALANCE - S/P CHEMO. WORRIED ABOUT FALLING . CARDIOLOGY: DO YOU HAVE A PACEMAKER OR DEFIBRILLATOR? NO . RESPIRATORY: HAVE YOU BEEN SICK IN THE PAST WEEK? NO . FEVER NO . FLU LIKE SYMPTOMS? NO . COUGH NO . INTEGUMENTARY: DO YOU HAVE ANY RASHES OR OPEN SORES? NO . ALLERGIC/IMMUNO: ARE YOU ALLERGIC TO SHELLFISH OR IV DYE? NO . ANY NEW ALLERGIES? NO . PSYCHIATRIC: DO YOU HAVE THOUGHTS OF HURTING YOURSELF OR SOMEONE ELSE? NO . ARE YOU ABUSED, NEGLECTED, OR IN AN UNSAFE ENVIRONMENT? NO . ENDOCRINOLOGY: ARE YOU DIABETIC? YES . OTHER: DO YOU NEED ANY PRESCRIPTIONS? NO . IF YES, PLEASE LIST: ____ . ANY NEW PROBLEMS WITH YOUR MEDICATIONS? NO . WHEN DID YOU LAST EAT? ____ . WHEN DID YOU LAST DRINK? ____ . WHAT DID YOU LAST DRINK? ____ . NAME OF PERSON DRIVING YOU HOME? ____ . DO YOU HAVE ANY OTHER QUESTIONS OR CONCERNS NO . VITAL SIGNS WT 289 LBS, HT 65 IN, BMI 48.09 INDEX, BP 180/98 MM HG, HR 89 /MIN, RR 18 /MIN, TEMP 97.5 F, OXYGEN SAT % 92%, NA INITIALS AW 0851, REVIEWED BY: CMPT AWARE AND DENIES C/O. EXAMINATION GENERAL EXAMINATION: PSYCHALERT , ORIENTED X 3 , APPROPRIATE MOOD AND AFFECT . LUNGS:CLEAR TO AUSCULTATION BILATERALLY. HEART:HEART RATE REGULAR. MUSCULOSKELETAL:TENDER WITH PALPATION OVER LEFT > RIGHT LUMBOSACRAL AXIS. GAIT STIFF. SLOW TO RISE TO STANDING POSITION. EXTREMITIES:LYMPHADEMA PRESENT LEFT UPPER EXTREMITY. ASSESSMENTS SPONDYLOSIS WITHOUT MYELOPATHY OR RADICULOPATHY, LUMBAR REGION - M47.816 (PRIMARY) SPONDYLOSIS WITHOUT MYELOPATHY OR RADICULOPATHY, LUMBOSACRAL REGION - M47.817 TREATMENT SPONDYLOSIS WITHOUT MYELOPATHY OR RADICULOPATHY, LUMBAR REGION INJECTION FACET JOINT/NERVE LUMBAR/SACRALELMIRA ANDREWS 04/03/2017 9:13:54 AM > BILATERAL L4-5, L5-S1 NOTES: HOLD DIABETES MEDS AM OF PROCEDURE. ,FACET JOINT INJECTION MATERIAL WAS PRINTEDDO BALANCE EXERCISES DAILY - STAND AT COUNTER - HOLD ON. STAND ON ONE FOOT FOR A COUNT OF 30. REST FOR COUNT OF 30. AND THEN STAND ON OTHER FOOT FOR COUNT OF 30. PROCEDURE CODES FA211 ESTABILISHED PATIENT [facility] FACILITY CHARGE G8730 PAIN ASSESS POS TOOL F/U PLAN DOC G8427 DOC MEDS VERIFIED W/PT OR RE DISPOSITION & COMMUNICATION FOLLOW UP AFTER INJECTION (REASON: CHECK AUTH BOR BILATERAL LUMBAR FACET BLOCK) ELECTRONICALLY SIGNED BY PATTIE PRECIADO ON 04/04/2017 AT 09:01 AM EDT DISCLAIMER : THIS IS A VISIT SUMMARY EXTRACTED FROM THE [employer] CHART. IT IS NOT A COPY OF THE [employer] PROGRESS NOTE. JACINDA
== END ==
LOC: M PAIN 08:40
PROVIDERS: ATTEND Nurse Practitioner Family
DX: G89.29 Other chronic pain (principal); M47.816 Spondylosis without myelopathy or radiculopathy, lumbar region; M47.817 Spondylosis without myelopathy or radiculopathy, lumbosacral region; E11.9 Type 2 diabetes mellitus without complications; I10 Essential (primary) hypertension; G47.33 Obstructive sleep apnea (adult) (pediatric); Z79.82 Long term (current) use of aspirin; Z79.84 Long term (current) use of oral hypoglycemic drugs; Z79.899 Other long term (current) drug therapy

== ENCOUNTER → 2017-04-12 | Outpatient (CLI) | payer MEDICARE, BC ==
[~2017-04-12] MED LIST changes: +BUPIVACAINE HCL 0.25% 30 ML VIAL As Ordered ONE; +ISOVUE-M 300 61% 15ML VIAL (Q9967) As Ordered ONE; +LIDOCAINE 1% SDV INJ 30 ML VIAL As Ordered ONE; +TRIAMCINOLONE ACETONIDE SUSP 40 MG/ML VIAL (J3301) As Ordered ONE; +diazePAM 5 MG TAB As Ordered ONE; +oxyCODONE 5MG TAB As Ordered ONE
--- NOTE | 2017-04-12 12:22 | REP ---
FACET BLOCK: All imaging was reviewed with Dr. Pond prior to dictation. The portable C-arm was provided in the OR for Dr. Wilson for fluoroscopic guidance. Two intraoperative fluoroscopic spot films were obtained using last image hold technology for needle placement verification for left lumbar facet injection. The films are on the PACS system and available for review. 54 seconds of fluoroscopy time were utilized for this procedure. Reviewed by LESLEY Gudino 04/12/2017 12:54 PEdited and Signed by Jonatan Pond MD 04/12/2017 08:01 P
--- NOTE | 2017-04-16 23:53 | ECWPNPC ---
PATIENT NAME: MATT MOORE : 1945 GENDER: FEMALE VISIT DATE: 04/12/2017 DISCHARGE DATE: 04/12/17 1106 VISIT LOCKED DATE TIME: PHYSICIAN: JALEN WONG RESOURCE: JALEN WONG REASON FOR APPOINTMENT 1. BILATERAL LUMBAR FACET BLOCK HISTORY OF PRESENT ILLNESS HISTORY OF PRESENT ILLNESS: PAIN THE PATIENT DESCRIBES THE PAIN... FALL RISK SCREENING: SCREENING :NO FALLS IN THE PAST YEAR CURRENT MEDICATIONS TAKING ALPHAGAN P 0.1 % SOLUTION 1 DROP INTO AFFECTED EYE OPHTHALMIC BID, NOTES: 04-12-17699 TAKING BYETTA 10 MCG PEN 10 MCG/0.04ML SOLUTION PEN-INJECTOR 0.02 ML UP TO 1 HOUR BEFORE BREAKFAST AND EVENING MEAL SUBCUTANEOUS TWICE A DAY, NOTES: 04-11-17 08 TAKING MULTIVITAMIN ADULT TABLET ORALLY DAILY, NOTES: 04-11-17699 TAKING VITAMIN D 1000 UNIT TABLET 1 TABLET ORALLY ONCE A DAY, NOTES: 04-11-17699 TAKING VITAMIN B COMPLEX TABLET ORALLY DAILY, NOTES: 04-11-17799 TAKING VITAMIN C & D3/OMID HIPS 500-1000-20 MG-UNIT-MG CAPSULE ORALLY DAILY, NOTES: 04-11-17799 TAKING COQ-10 100 MG CAPSULE 1 CAPSULE WITH A MEAL ORALLY ONCE A DAY, NOTES: 04-11-17699 TAKING [id number] COMPLEX TABLET ORALLY DAILY, NOTES: 799 TAKING ASPIR-81 81 MG TABLET DELAYED RELEASE 1 TABLET ORALLY ONCE A DAY, NOTES: 04-11-172099 TAKING FEMARA 2.5 MG TABLET 1 TABLET ORALLY ONCE A DAY, NOTES: 04-11-17799 TAKING METFORMIN HCL ER 750 MG TABLET EXTENDED RELEASE 24 HOUR ORAL BID, NOTES: 04-11-17799 TAKING CRESTOR 10 MG TABLET ORAL ONCE DAILY, NOTES: 04-11-17 2100 TAKING RAMIPRIL 5 MG CAPSULE ORAL ONCE DAILY, NOTES: 04-12-17699 TAKING SERTRALINE HCL 50 MG TABLET ORAL ONCE DAILY, NOTES: 04-12-17 08 TAKING LUMIGAN 0.01 % SOLUTION 1 DROP INTO AFFECTED EYE IN THE EVENING OPHTHALMIC OU DAILY, NOTES: 04-12-17 M0700 TAKING SPIRONOLACTONE 25 MG TABLET ORAL ONCE DAILY, NOTES: 04-12-17 -700 TAKING ATENOLOL 25 MG TABLET ORAL ONCE DAILY, NOTES: 04-12-17 08 TAKING NEXIUM 40 MG CAPSULE DELAYED RELEASE 1 CAPSULE ORALLY ONCE A DAY, NOTES: 04-12-17 0800 NOT-TAKING OMEGA 3-6-9 COMPLEX CAPSULE ORALLY DAILY NOT-TAKING MELOXICAM 15 MG TABLET 1 TABLET ORALLY ONCE A DAY NEEDED MEDICATION LIST REVIEWED AND RECONCILED WITH THE PATIENT PAST MEDICAL HISTORY BREAST CANCER LEFT WITH LYMPHEDEMA DM HTN ESOPHAGEAL STRICTURE RICHARD WITH CPAP ALLERGIES NONE REVIEW OF SYSTEMS REVIEWED BY: PROVIDER: . CONSTITUTIONAL: ANY CHANGE IN YOUR MEDICAL CONDITION? NO . CHILLS NO . FEVER NO . INFECTION: DO YOU HAVE NEW INFECTIONS? NO . DO YOU HAVE HISTORY OF MRSA? NO . MUSCULOSKELETAL: ANY NEW PATTERNS OF PAIN OR NUMBNESS? NO . GASTROENTEROLOGY: ANY NEW CHANGE IN BOWEL CONTROL? NO . GENITOURINARY: ANY NEW CHANGE IN BLADDER CONTROL? NO . IS THERE A CHANCE YOU COULD BE ? NO . HEMATOLOGY/LYMPH: DO YOU TAKE ANY BLOOD THINNERS? (FOR EXAMPLE- COUMADIN, PLAVIX, AGGRENOX, PLATEL, PRADAXA, OR XARELTO) NO . WHEN WAS YOUR LAST DOSE? DATE: TIME: . NEUROLOGY: HAVE YOU FALLEN IN THE PAST 6 MONTHS? NO . ANY NEW EXTREMITY NUMBNESS OR WEAKNESS? NO . CARDIOLOGY: DO YOU HAVE A PACEMAKER OR DEFIBRILLATOR? NO . RESPIRATORY: HAVE YOU BEEN SICK IN THE PAST WEEK? NO . FEVER NO . FLU LIKE SYMPTOMS? NO . COUGH NO . INTEGUMENTARY: DO YOU HAVE ANY RASHES OR OPEN SORES? NO . ALLERGIC/IMMUNO: ARE YOU ALLERGIC TO SHELLFISH OR IV DYE? NO . ANY NEW ALLERGIES? NO . PSYCHIATRIC: DO YOU HAVE THOUGHTS OF HURTING YOURSELF OR SOMEONE ELSE? NO . ARE YOU ABUSED, NEGLECTED, OR IN AN UNSAFE ENVIRONMENT? NO . ENDOCRINOLOGY: ARE YOU DIABETIC? YES . OTHER: DO YOU NEED ANY PRESCRIPTIONS? NO . IF YES, PLEASE LIST: ____ . ANY NEW PROBLEMS WITH YOUR MEDICATIONS? NO . WHEN DID YOU LAST EAT? ____LAST NIGHT . WHEN DID YOU LAST DRINK? ____THIS AM SIPS FOR MEDS . WHAT DID YOU LAST DRINK? ____WATER . NAME OF PERSON DRIVING YOU HOME? ____JOSE R MOORE . DO YOU HAVE ANY OTHER QUESTIONS OR CONCERNS NO . VITAL SIGNS WT 300.6 LBS, HT 65 IN, BMI 50.02 INDEX, BP 134/72 MM HG, HR 79 /MIN, RR 18 /MIN, TEMP 97.9 F, OXYGEN SAT % 93, NA INITIALS MP 0848, REVIEWED BY: KGF. ASSESSMENTS SPONDYLOSIS OF LUMBAR REGION WITHOUT MYELOPATHY OR RADICULOPATHY - M47.816 (PRIMARY) SPONDYLOSIS OF LUMBOSACRAL REGION WITHOUT MYELOPATHY OR RADICULOPATHY - M47.817 PROCEDURES PN LUMBAR FACET BLOCK THERAPEUTIC PRE PROCEDURE DIAGNOSIS LUMBAR SPONDYLOSIS, LUMBOSACRAL SPONDYLOSIS POST PROCEDURE DIAGNOSIS LUMBAR SPONDYLOSIS, LUMBOSACRAL SPONDYLOSIS PROCEDURE BILATERAL L4-L5 AND BILATERAL L5-S1 SURGEON DR. JALEN WONG MEDICAL CODING SPECIALIST NONE ANESTHESIA LOCAL PRE PROCEDURE NOTE THE PATIENT HAS A HISTORY OF CHRONIC LOW BACK PAIN. I EVALUATE THE PATIENT AND REVIEWED THE CHART. I WENT OVER THE RISKS, ALTERNATIVES, AND BENEFITS ASSOCIATED WITH THIS PROCEDURE. THE PATIENT WOULD LIKE TO PROCEED AND GIVE CONSENT TO PERFORMED THE PROCEDURE. THE PATIENT DENIES UNEXPLAINABLE WEIGHT LOSS, FEVER, CHILLS, OR NEW CHANGES IN URINARY OR BOWEL CONTROL DESCRIPTION OF PROCEDURE THE PATIENT WAS BROUGHT TO THE PROCEDURE ROOM AND PLACED IN THE PRONE POSITION. THE LUMBOSACRAL AREA WAS CLEANED WITH CHLORAPREP SOLUTION AND DRAPED ASEPTICALLY. THE PROCEDURE WAS DONE UNDER STERILE CONDITIONS. I CHECKED LATERALITY AND THE LEVEL WHERE THE PROCEDURE WAS GOING TO BE PERFORMED WITH THE PATIENT AND THE SUPPORTING STAFF AT THE MOMENT OF THE TIME OUT IN THE PROCEDURE ROOM. UNDER FLUOROSCOPIC GUIDANCE, THE TARGET POINT WAS SELECTED AT THE RIGHT AND LEFT L4-L5 AND RIGHT AND LEFT L5-S1 FACET JOINT. TARGET POINT WAS SELECTED AFTER LATERAL ROTATION AND TILT OF THE MAGNIFIER OF THE C-ARM. LIDOCAINE 0.5% WAS USED TO NUMB THE SKIN AND THE SUBCUTANEOUS TISSUE BELOW IT. SPINAL NEEDLES, 22-GAUGE, WERE ADVANCED UNDER FLUOROSCOPIC GUIDANCE AND FOLLOWING PATIENT FEEDBACK UNTIL THE TARGETS WERE TOUCHED. THE POSITION OF THE NEEDLES WAS VERIFIED WITH AP AND LATERAL VIEWS. AFTER PROPER POSITION OF THE NEEDLES WAS ACHIEVED, ISOVUE-M DYE 30% 0.1 ML WAS INJECTED SHOWING ADEQUATE SPREAD OF THE DYE. THEN A SOLUTION OF 1.9 ML OF BUPIVACAINE 0.125% OF KENALOG 10 MG WAS INJECTED AT EACH SITE. THERE WAS NO EVIDENCE OF BLOOD, PARESTHESIA OR CEREBROSPINAL FLUID DURING THE PROCEDURE. THE PATIENT WAS SENT TO THE RECOVERY ROOM. THE PATIENT WAS MOVING THE EXTREMITIES AND DOING WELL. THERE WAS NO COMPLICATION DURING THE PROCEDURE. FLUOROSCOPY TIME WAS 54 SECONDS POST PROCEDURE NOTE THE PATIENT WILL BE SEEN IN A FOLLOW UP IN THE NEXT FEW WEEKS. INSTRUCTIONS WERE GIVEN, QUESTIONS WERE ANSWERED, AND THE PATIENT EXPRESSED UNDERSTANDING AND AGREES WITH THE PLAN. I, ADAN RAMOS, DOCUMENTED THE ABOVE INFORMATION ACTING A SCRIBE FOR DR. WONG. I HAVE REVIEWED THE ABOVE DOCUMENT, WRITTEN BY ADAN DAVENPORTIBRadha AND I VERIFY THAT IT IS ACCURATE. DIAGNOSTIC IMAGING [facility] FACET BLOCK (PAIN)[id number] PROCEDURE CODES 02684 INJ PARAVERT F JNT L/S 1 LEV, MODIFIERS: 50 [id number] INJ PARAVERT F JNT L/S 2 LEV, MODIFIERS: 50 [id number] RADXPS IN END [id number] PXD DISPOSITION & COMMUNICATION FOLLOW UP 3 WEEKS ELECTRONICALLY SIGNED BY JALEN WONG MD ON 04/16/2017 AT 12:47 PM EDT DISCLAIMER : THIS IS A VISIT SUMMARY EXTRACTED FROM THE [employer] CHART. IT IS NOT A COPY OF THE [facility] PROGRESS NOTE. MTDAr
== END ==
LOC: M PAIN 08:45
PROVIDERS: ATTEND Anesthesiology
DX: G89.29 Other chronic pain (principal); M47.816 Spondylosis without myelopathy or radiculopathy, lumbar region; M47.817 Spondylosis without myelopathy or radiculopathy, lumbosacral region; E11.9 Type 2 diabetes mellitus without complications; I10 Essential (primary) hypertension; G47.33 Obstructive sleep apnea (adult) (pediatric); Z79.82 Long term (current) use of aspirin; Z79.84 Long term (current) use of oral hypoglycemic drugs; Z79.899 Other long term (current) drug therapy
CPT/HCPCS: 64493; 64494; J3301; Q9967

== ENCOUNTER → 2017-05-07 | Outpatient (CLI) | payer MEDICARE, BC ==
[~2017-05-07] MED LIST changes: -BUPIVACAINE HCL 0.25% 30 ML VIAL As Ordered ONE; -ISOVUE-M 300 61% 15ML VIAL (Q9967) As Ordered ONE; -LIDOCAINE 1% SDV INJ 30 ML VIAL As Ordered ONE; -TRIAMCINOLONE ACETONIDE SUSP 40 MG/ML VIAL (J3301) As Ordered ONE; -diazePAM 5 MG TAB As Ordered ONE; -oxyCODONE 5MG TAB As Ordered ONE
--- NOTE | 2017-05-08 01:55 | ECWPNPC ---
PATIENT NAME: MATT MOORE : 1945 GENDER: FEMALE VISIT DATE: 05/07/2017 DISCHARGE DATE: 05/07/17 1000 VISIT LOCKED DATE TIME: PHYSICIAN: ELMIRA ANDREWS RESOURCE: ELMIRA ANDREWS REASON FOR APPOINTMENT 1. POST FACET HISTORY OF PRESENT ILLNESS TODAY'S VISIT: NOTES: S/P BILATERAL LUMBAR FACET BLOCK COMPLETED ON 04/12/17. PAIN LEVEL PRIOR 510, POST 0-10. RAIN LEVEL TODAY IS 0-/10. IS NOTING SOME ACHING INTO LEFT LEG AND FOOT TODAY. . HISTORY OF PRESENT ILLNESS: PAIN THE PATIENT DESCRIBES THE PAIN... FALL RISK SCREENING: SCREENING :NO FALLS IN THE PAST YEAR CURRENT MEDICATIONS TAKING ALPHAGAN P 0.1 % SOLUTION 1 DROP INTO AFFECTED EYE OPHTHALMIC BID TAKING BYETTA 10 MCG PEN 10 MCG/0.04ML SOLUTION PEN-INJECTOR 0.02 ML UP TO 1 HOUR BEFORE BREAKFAST AND EVENING MEAL SUBCUTANEOUS TWICE A DAY TAKING MULTIVITAMIN ADULT TABLET ORALLY DAILY TAKING VITAMIN D 1000 UNIT TABLET 1 TABLET ORALLY ONCE A DAY TAKING VITAMIN B COMPLEX TABLET ORALLY DAILY TAKING VITAMIN C & D3/OMID HIPS 500-1000-20 MG-UNIT-MG CAPSULE ORALLY DAILY TAKING COQ-10 100 MG CAPSULE 1 CAPSULE WITH A MEAL ORALLY ONCE A DAY TAKING [id number] COMPLEX TABLET ORALLY DAILY TAKING ASPIR-81 81 MG TABLET DELAYED RELEASE 1 TABLET ORALLY ONCE A DAY TAKING FEMARA 2.5 MG TABLET 1 TABLET ORALLY ONCE A DAY TAKING METFORMIN HCL ER 750 MG TABLET EXTENDED RELEASE 24 HOUR ORAL BID TAKING CRESTOR 10 MG TABLET ORAL ONCE DAILY TAKING RAMIPRIL 5 MG CAPSULE ORAL ONCE DAILY TAKING SERTRALINE HCL 50 MG TABLET ORAL ONCE DAILY TAKING LUMIGAN 0.01 % SOLUTION 1 DROP INTO AFFECTED EYE IN THE EVENING OPHTHALMIC OU DAILY TAKING SPIRONOLACTONE 25 MG TABLET ORAL ONCE DAILY TAKING ATENOLOL 25 MG TABLET ORAL ONCE DAILY TAKING NEXIUM 40 MG CAPSULE DELAYED RELEASE 1 CAPSULE ORALLY ONCE A DAY UNKNOWN OMEGA 3-6-9 COMPLEX CAPSULE ORALLY DAILY UNKNOWN MELOXICAM 15 MG TABLET 1 TABLET ORALLY ONCE A DAY NEEDED MEDICATION LIST REVIEWED AND RECONCILED WITH THE PATIENT PAST MEDICAL HISTORY BREAST CANCER LEFT WITH LYMPHEDEMA DM HTN ESOPHAGEAL STRICTURE RICHARD WITH CPAP ALLERGIES NONE SURGICAL HISTORY D/C HYSTERECTOMY BILATERAL MASTECTOMY 2010 INFUSAPORT INSERTED 2010 INFUSAPORT REMOVED 2011 EGD-DILATATION 08/2016 CATARACT SURGERIES-BOTH EYES 09/2106 SOCIAL HISTORY GENERAL: TOBACCO USE ARE YOU A:NONSMOKER ALCOHOL SCREENING DID YOU HAVE A DRINK CONTAINING ALCOHOL IN THE PAST YEAR?YES HOW OFTEN DID YOU HAVE A DRINK CONTAINING ALCOHOL IN THE PAST YEAR?MONTHLY OR LESS (1 POINT) HOW MANY DRINKS DID YOU HAVE ON A TYPICAL DAY WHEN YOU WERE DRINKING IN THE PAST YEAR?1 OR 2 (0 POINTS) HOW OFTEN DID YOU HAVE SIX OR MORE DRINKS ON ONE OCCASION IN THE PAST YEAR?NEVER (0 POINTS) POINTS1 INTERPRETATIONNEGATIVE RECREATIONAL DRUG USE DRUG USE?NO HAS MEDICAL MARIJUANA CAFFEINE CAFFEINE USE?NO PAIN CLINIC PFS, CLERGY, PUBLIC HEALTH REFERRALS PFS REFERRAL NEEDED?NO CLERGY REFERRAL NEEDED?NO PUBLIC HEALTH REFERRAL NEEDED?NO WAS THE PROVIDER NOTIFIED OF ANY PERTINENT INFO?NO HAS THE PATIENT BEEN EDUCATED REGARDING HIS/HER PLAN OF CARE?YES HAS THE PATIENT BEEN EDUCATED REGARDING PAIN, THE RISK FOR PAIN, THE IMPORTANCE OF EFFECTIVE PAIN MANAGEMENT, AND THE PAIN ASSESSMENT PROCESS?YES PATIENT: ____. HOSPITALIZATION/MAJOR DIAGNOSTIC PROCEDURE SURGERY RELATED REVIEW OF SYSTEMS REVIEWED BY: PROVIDER: ELMIRA TINAJERO . CONSTITUTIONAL: ANY CHANGE IN YOUR MEDICAL CONDITION? NO . CHILLS NO . FEVER NO . INFECTION: DO YOU HAVE NEW INFECTIONS? NO . DO YOU HAVE HISTORY OF MRSA? NO . MUSCULOSKELETAL: ANY NEW PATTERNS OF PAIN OR NUMBNESS? NO, PT STATES BILAT LUMBAR FACET BLOCK THERAPEUTIC DONE 04/12/17. PRE PROCEDURE PAIN WAS 5/10, POST 0-1/10, TODAY PAIN IS 1/10 . GASTROENTEROLOGY: ANY NEW CHANGE IN BOWEL CONTROL? NO . GENITOURINARY: ANY NEW CHANGE IN BLADDER CONTROL? NO . IS THERE A CHANCE YOU COULD BE ? NO . HEMATOLOGY/LYMPH: DO YOU TAKE ANY BLOOD THINNERS? (FOR EXAMPLE- COUMADIN, PLAVIX, AGGRENOX, PLATEL, PRADAXA, OR XARELTO) NO . WHEN WAS YOUR LAST DOSE? DATE: TIME: . NEUROLOGY: HAVE YOU FALLEN IN THE PAST 6 MONTHS? NO . ANY NEW EXTREMITY NUMBNESS OR WEAKNESS? NO . CARDIOLOGY: DO YOU HAVE A PACEMAKER OR DEFIBRILLATOR? NO . RESPIRATORY: HAVE YOU BEEN SICK IN THE PAST WEEK? NO . FEVER NO . FLU LIKE SYMPTOMS? NO . COUGH NO . INTEGUMENTARY: DO YOU HAVE ANY RASHES OR OPEN SORES? NO . ALLERGIC/IMMUNO: ARE YOU ALLERGIC TO SHELLFISH OR IV DYE? NO . ANY NEW ALLERGIES? NO . PSYCHIATRIC: DO YOU HAVE THOUGHTS OF HURTING YOURSELF OR SOMEONE ELSE? NO . ARE YOU ABUSED, NEGLECTED, OR IN AN UNSAFE ENVIRONMENT? NO . ENDOCRINOLOGY: ARE YOU DIABETIC? YES - BLOOD SUGARS UNDER GOOD CONTROL . OTHER: DO YOU NEED ANY PRESCRIPTIONS? NO . IF YES, PLEASE LIST: ____ . ANY NEW PROBLEMS WITH YOUR MEDICATIONS? NO . WHEN DID YOU LAST EAT? ____ . WHEN DID YOU LAST DRINK? ____ . WHAT DID YOU LAST DRINK? ____ . NAME OF PERSON DRIVING YOU HOME? ____ . DO YOU HAVE ANY OTHER QUESTIONS OR CONCERNS NO, PT STATES HE RECEIVED FLU SHOT LAST WEEK, DISCUSSED AVOIDING FLU SHOT WITHIN A MONTH OF PROCEDURES WITH US . VITAL SIGNS WT 300.6 LBS, HT 65 IN, BMI 50.02 INDEX, BP 140/74 MM HG, HR 80 /MIN, RR 18 /MIN, TEMP 96.7 F, OXYGEN SAT % 95, SAFE IN ENV? (Y/N) Y, NA INITIALS MP 0914, REVIEWED BY: JEROME. EXAMINATION GENERAL EXAMINATION: PSYCHALERT , ORIENTED X 3 , APPROPRIATE MOOD AND AFFECT . LUNGS:CLEAR TO AUSCULTATION BILATERALLY. HEART:HEART RATE REGULAR. MUSCULOSKELETAL:TENDER WITH PALPATION OVER LEFT > RIGHT LUMBOSACRAL AXIS. GAIT STIFF. POSTURE UPRIGHT. CANE USED FOR BALANCE. EXTREMITIES:LYMPHADEMA PRESENT LEFT UPPER EXTREMITY. 2+ EDEMA TO BILATERAL LOWER EXTREMITIES. ASSESSMENTS SPONDYLOSIS OF LUMBAR REGION WITHOUT MYELOPATHY OR RADICULOPATHY - M47.816 (PRIMARY) SPONDYLOSIS OF LUMBOSACRAL REGION WITHOUT MYELOPATHY OR RADICULOPATHY - M47.817 TREATMENT SPONDYLOSIS OF LUMBAR REGION WITHOUT MYELOPATHY OR RADICULOPATHY NOTES: WALK EVERY DAY. CLINICAL NOTES: REPORTS USE OF MEDICAL MARIJUANA IS HELPFUL FOR PAIN CONTROL, MARTIN IN EVENING. PROCEDURE CODES FA211 ESTABILISHED PATIENT [facility] FACILITY CHARGE G8730 PAIN ASSESS POS TOOL F/U PLAN DOC G8427 DOC MEDS VERIFIED W/PT OR RE DISPOSITION & COMMUNICATION FOLLOW UP 2 MONTHS (REASON: BACK PAIN) ELECTRONICALLY SIGNED BY PATTIE PRECIADO ON 05/07/2017 AT 12:10 PM EDT DISCLAIMER : THIS IS A VISIT SUMMARY EXTRACTED FROM THE [employer] CHART. IT IS NOT A COPY OF THE [employer] PROGRESS NOTE. MTDD
== END ==
LOC: M PAIN 09:00
PROVIDERS: ATTEND Nurse Practitioner Family
DX: G89.29 Other chronic pain (principal); M47.816 Spondylosis without myelopathy or radiculopathy, lumbar region; M47.817 Spondylosis without myelopathy or radiculopathy, lumbosacral region; E11.9 Type 2 diabetes mellitus without complications; I10 Essential (primary) hypertension; G47.33 Obstructive sleep apnea (adult) (pediatric); Z79.84 Long term (current) use of oral hypoglycemic drugs; Z79.82 Long term (current) use of aspirin; Z79.899 Other long term (current) drug therapy

== ENCOUNTER → 2017-06-28 | Outpatient (CLI) | payer MEDICARE, BC ==
--- NOTE | 2017-06-29 01:40 | ECWPNPC ---
PATIENT NAME: MATT MOORE : 1945 GENDER: FEMALE VISIT DATE: 06/28/2017 DISCHARGE DATE: 06/28/17934 VISIT LOCKED DATE TIME: PHYSICIAN: ELMIRA ANDREWS RESOURCE: ELMIRA ANDREWS HISTORY OF PRESENT ILLNESS HISTORY OF PRESENT ILLNESS: PAIN THE PATIENT DESCRIBES THE PAIN... FALL RISK SCREENING: SCREENING :NO FALLS IN THE PAST YEAR TODAY'S VISIT: NOTES: RATES PAIN TODAY 4/10. NOTES HAS BEEN EXPERIENCING SOME INCREASE IN LOW BACK PAIN WORSENING OVER THE LAST FEW WEEKS. HAS BEEN EXPERIENCING PAIN RADIATION OVER LEFT SACRUM TO LEFT LATERAL LEG TO LEVEL OF THE FOOT. . CURRENT MEDICATIONS TAKING ALPHAGAN P 0.1 % SOLUTION 1 DROP INTO AFFECTED EYE OPHTHALMIC BID TAKING BYETTA 10 MCG PEN 10 MCG/0.04ML SOLUTION PEN-INJECTOR 0.02 ML UP TO 1 HOUR BEFORE BREAKFAST AND EVENING MEAL SUBCUTANEOUS TWICE A DAY TAKING MULTIVITAMIN ADULT TABLET ORALLY DAILY TAKING VITAMIN D 1000 UNIT TABLET 1 TABLET ORALLY ONCE A DAY TAKING VITAMIN B COMPLEX TABLET ORALLY DAILY TAKING VITAMIN C & D3/OMID HIPS 500-1000-20 MG-UNIT-MG CAPSULE ORALLY DAILY TAKING COQ-10 100 MG CAPSULE 1 CAPSULE WITH A MEAL ORALLY ONCE A DAY TAKING [id number] COMPLEX TABLET ORALLY DAILY TAKING ASPIR-81 81 MG TABLET DELAYED RELEASE 1 TABLET ORALLY ONCE A DAY TAKING FEMARA 2.5 MG TABLET 1 TABLET ORALLY ONCE A DAY TAKING METFORMIN HCL ER 750 MG TABLET EXTENDED RELEASE 24 HOUR ORAL BID TAKING CRESTOR 10 MG TABLET ORAL ONCE DAILY TAKING RAMIPRIL 5 MG CAPSULE ORAL ONCE DAILY TAKING SERTRALINE HCL 50 MG TABLET ORAL ONCE DAILY TAKING LUMIGAN 0.01 % SOLUTION 1 DROP INTO AFFECTED EYE IN THE EVENING OPHTHALMIC OU DAILY TAKING SPIRONOLACTONE 25 MG TABLET ORAL ONCE DAILY TAKING ATENOLOL 25 MG TABLET ORAL ONCE DAILY TAKING NEXIUM 40 MG CAPSULE DELAYED RELEASE 1 CAPSULE ORALLY ONCE A DAY NOT-TAKING OMEGA 3-6-9 COMPLEX CAPSULE ORALLY DAILY NOT-TAKING MELOXICAM 15 MG TABLET 1 TABLET ORALLY ONCE A DAY NEEDED MEDICATION LIST REVIEWED AND RECONCILED WITH THE PATIENT PAST MEDICAL HISTORY BREAST CANCER LEFT WITH LYMPHEDEMA DM HTN ESOPHAGEAL STRICTURE RICHARD WITH CPAP ALLERGIES NONE SURGICAL HISTORY D/C HYSTERECTOMY BILATERAL MASTECTOMY 2010 INFUSAPORT INSERTED 2010 INFUSAPORT REMOVED 2011 EGD-DILATATION 08/2016 CATARACT SURGERIES-BOTH EYES 09/2106 SOCIAL HISTORY GENERAL: TOBACCO USE ARE YOU A:NONSMOKER ALCOHOL SCREENING POINTS1 INTERPRETATIONNEGATIVE RECREATIONAL DRUG USE DRUG USE?NO HAS MEDICAL MARIJUANA CAFFEINE CAFFEINE USE?NO ISLAM [id number] RESTORATION LANGUAGE LANGUAGES SPOKEN:KAZAKH LEARNING BARRIERS / SPECIAL NEEDS CHANGE FROM LAST VISIT?NO BARRIERS TO LEARNING?NO HEARING IMPAIRED?NO VISION IMPAIRED?NO COGNITIVELY IMPAIRED?NO READINESS TO LEARN?NO LEARNING PREFERENCES?NO LEARNING CAPABILITIES PRESENT?YES EMOTIONAL BARRIERS?NO SPECIAL DEVICES?NO AGRICULTURAL RESEARCH TECHNICIAN NEEDED?NO PAIN CLINIC PFS, CLERGY, PUBLIC HEALTH REFERRALS PFS REFERRAL NEEDED?NO CLERGY REFERRAL NEEDED?NO PUBLIC HEALTH REFERRAL NEEDED?NO WAS THE PROVIDER NOTIFIED OF ANY PERTINENT INFO?NO HAS THE PATIENT BEEN EDUCATED REGARDING HIS/HER PLAN OF CARE?YES HAS THE PATIENT BEEN EDUCATED REGARDING PAIN, THE RISK FOR PAIN, THE IMPORTANCE OF EFFECTIVE PAIN MANAGEMENT, AND THE PAIN ASSESSMENT PROCESS?YES PATIENT: ____. ADVANCE DIRECTIVES HEALTH CARE PROXY?YES NAME OF HCP JOSE R MOORE II CONTACT # FOR HCP [phone] DO YOU HAVE A COPY WITH YOU? COPY ON FILE ALREADY DO YOU HAVE A DNR?NO WOULD YOU LIKE MORE INFORMATION?NO LIVING WILL?NO WOULD YOU LIKE MORE INFORMATION?NO POWER OF COPER HAND?NO WOULD YOU LIKE MORE INFORMATION?NO HOSPITALIZATION/MAJOR DIAGNOSTIC PROCEDURE SURGERY RELATED REVIEW OF SYSTEMS REVIEWED BY: PROVIDER: . CONSTITUTIONAL: ANY CHANGE IN YOUR MEDICAL CONDITION? NO . CHILLS NO . FEVER NO . INFECTION: DO YOU HAVE NEW INFECTIONS? NO . DO YOU HAVE HISTORY OF MRSA? NO . MUSCULOSKELETAL: ANY NEW PATTERNS OF PAIN OR NUMBNESS? NO . GASTROENTEROLOGY: ANY NEW CHANGE IN BOWEL CONTROL? NO . GENITOURINARY: ANY NEW CHANGE IN BLADDER CONTROL? NO . IS THERE A CHANCE YOU COULD BE ? NO . HEMATOLOGY/LYMPH: DO YOU TAKE ANY BLOOD THINNERS? (FOR EXAMPLE- COUMADIN, PLAVIX, AGGRENOX, PLATEL, PRADAXA, OR XARELTO) NO . WHEN WAS YOUR LAST DOSE? DATE: TIME: . NEUROLOGY: HAVE YOU FALLEN IN THE PAST 6 MONTHS? NO . ANY NEW EXTREMITY NUMBNESS OR WEAKNESS? NO . CARDIOLOGY: DO YOU HAVE A PACEMAKER OR DEFIBRILLATOR? NO . RESPIRATORY: HAVE YOU BEEN SICK IN THE PAST WEEK? NO . FEVER NO . FLU LIKE SYMPTOMS? NO . COUGH NO . INTEGUMENTARY: DO YOU HAVE ANY RASHES OR OPEN SORES? NO . ALLERGIC/IMMUNO: ARE YOU ALLERGIC TO SHELLFISH OR IV DYE? NO . ANY NEW ALLERGIES? NO . PSYCHIATRIC: DO YOU HAVE THOUGHTS OF HURTING YOURSELF OR SOMEONE ELSE? NO . ARE YOU ABUSED, NEGLECTED, OR IN AN UNSAFE ENVIRONMENT? NO . ENDOCRINOLOGY: ARE YOU DIABETIC? YES . OTHER: DO YOU NEED ANY PRESCRIPTIONS? NO . IF YES, PLEASE LIST: ____ . ANY NEW PROBLEMS WITH YOUR MEDICATIONS? NO . WHEN DID YOU LAST EAT? ____ . WHEN DID YOU LAST DRINK? ____ . WHAT DID YOU LAST DRINK? ____ . NAME OF PERSON DRIVING YOU HOME? ____ . DO YOU HAVE ANY OTHER QUESTIONS OR CONCERNS NO . VITAL SIGNS WT 300.8 LBS, HT 65 IN, BMI 50.05 INDEX, BP 143/81 MM HG, HR 93 /MIN, RR 18 /MIN, TEMP 97.5 F, OXYGEN SAT % 94%, NA INITIALS TL 0827, REVIEWED BY: LS. EXAMINATION GENERAL EXAMINATION: PSYCHALERT , ORIENTED X 3 , APPROPRIATE MOOD AND AFFECT . LUNGS:CLEAR TO AUSCULTATION BILATERALLY. HEART:HEART RATE REGULAR. MUSCULOSKELETAL:TENDER WITH PALPATION OVER LEFT > RIGHT LUMBOSACRAL AXIS AND OVER LUMBAR PARASPINOUS MUSCLES AND FACETS. INCREASED PAIN REPORTED WITH EXTENSION OF THE SPINE. . GAIT STIFF. POSTURE UPRIGHT. CANE USED FOR BALANCE. EXTREMITIES:LYMPHADEMA PRESENT LEFT UPPER EXTREMITY. 2+ EDEMA TO BILATERAL LOWER EXTREMITIES. ASSESSMENTS SPONDYLOSIS OF LUMBAR REGION WITHOUT MYELOPATHY OR RADICULOPATHY - M47.816 (PRIMARY) SPONDYLOSIS OF LUMBOSACRAL REGION WITHOUT MYELOPATHY OR RADICULOPATHY - M47.817 TREATMENT SPONDYLOSIS OF LUMBAR REGION WITHOUT MYELOPATHY OR RADICULOPATHY INJECTION FACET JOINT/NERVE SHANNA/ELMIRA DAS 06/28/2017 9:25:35 AM > BIALTERAL L4-5 AND L5-S1 THERAPEUTIC LUMBAR FACET CLOCK PREVENTIVE MEDICINE PAIN CLINIC TEACHING: PROCEDURE TEACHING PRE FACET BLOCK INSTRUCTIONS REVIEWED WITH PT. VERBALIZED UNDERSTANDING.. PROCEDURE CODES FA211 ESTABILISHED PATIENT [facility] FACILITY CHARGE M6000 PAIN ASSESS POS TOOL F/U PLAN DOC G8427 DOC MEDS VERIFIED W/PT OR RE DISPOSITION & COMMUNICATION FOLLOW UP AFTER INJECTION (REASON: CHECK AUTH BIALTERAL L4-5 AND L5-S1 THERAPEUTIC LUMBAR FACET BLOCK) ELECTRONICALLY SIGNED BY PATTIE PRECIADO ON 06/28/2017 AT 11:13 AM EST DISCLAIMER : THIS IS A VISIT SUMMARY EXTRACTED FROM THE [employer] CHART. IT IS NOT A COPY OF THE [employer] PROGRESS NOTE. JACINDA
== END ==
LOC: M PAIN 08:30
PROVIDERS: ATTEND Nurse Practitioner Family
DX: G89.29 Other chronic pain (principal); M47.816 Spondylosis without myelopathy or radiculopathy, lumbar region; M47.817 Spondylosis without myelopathy or radiculopathy, lumbosacral region; E11.9 Type 2 diabetes mellitus without complications; I10 Essential (primary) hypertension; G47.33 Obstructive sleep apnea (adult) (pediatric); Z79.82 Long term (current) use of aspirin; Z79.84 Long term (current) use of oral hypoglycemic drugs; Z79.899 Other long term (current) drug therapy

== ENCOUNTER → 2017-07-18 | Outpatient (CLI) | payer MEDICARE, BC ==
[~2017-07-18] MED LIST changes: -ALPH0.156 OU; -ASPI81TA85 PO; -ATEN25TA PO; -BIMA01SOL OU; +BUPIVACAINE HCL 0.25% 30 ML VIAL As Ordered; -BYET10IN2 SC; -COQ1150C PO; -CRES10TA32 PO; -GLUC1CAP PO; +ISOVUE-M 300 61% 15ML VIAL (Q9967) As Ordered; +LIDOCAINE 1% SDV INJ 30 ML VIAL As Ordered; -METF750T PO; -MULT1TAB18 PO; -RAMI5CA PO; -SERT50TA PO; -SPIR25TA2 PO; +TRIAMCINOLONE ACETONIDE SUSP 40 MG/ML VIAL (J3301) As Ordered; -VITA-182 PO; -VITA500T68 PO; -VITATAB11 PO; -[UNRECOGNIZED DRUG - OTHER] PO; +diazePAM 5 MG TAB As Ordered; +oxyCODONE 5MG TAB As Ordered
== END ==
LOC: M PAIN 08:30
DX: G89.29 Other chronic pain (principal); M47.816 Spondylosis without myelopathy or radiculopathy, lumbar region; M47.817 Spondylosis without myelopathy or radiculopathy, lumbosacral region; I89.0 Lymphedema, not elsewhere classified; E11.9 Type 2 diabetes mellitus without complications; I10 Essential (primary) hypertension; G47.33 Obstructive sleep apnea (adult) (pediatric); Z79.82 Long term (current) use of aspirin; Z79.84 Long term (current) use of oral hypoglycemic drugs; Z79.899 Other long term (current) drug therapy; Z85.3 Personal history of malignant neoplasm of breast
CPT/HCPCS: J3301

== ENCOUNTER → 2017-08-03 | Outpatient (CLI) | payer MEDICARE, BC | LOC: M PAIN 09:00 | DX: G89.29 Other chronic pain (principal); M79.1 Myalgia; M47.816 Spondylosis without myelopathy or radiculopathy, lumbar region; M47.817 Spondylosis without myelopathy or radiculopathy, lumbosacral region; E11.9 Type 2 diabetes mellitus without complications; I10 Essential (primary) hypertension; G47.33 Obstructive sleep apnea (adult) (pediatric); Z85.3 Personal history of malignant neoplasm of breast; Z90.13 Acquired absence of bilateral breasts and nipples; Z79.82 Long term (current) use of aspirin; Z79.84 Long term (current) use of oral hypoglycemic drugs; Z79.899 Other long term (current) drug therapy | CPT/HCPCS: G0463 ==

== ENCOUNTER → 2017-08-24 | Outpatient (CLI) | payer MEDICARE, BC ==
[~2017-08-24] MED LIST changes: +BUPIVACAINE HCL 0.25% 10 ML VIAL As Ordered; -ISOVUE-M 300 61% 15ML VIAL (Q9967) As Ordered; -LIDOCAINE 1% SDV INJ 30 ML VIAL As Ordered
== END ==
LOC: M PAIN 09:00
DX: G89.29 Other chronic pain (principal); M54.5 Low back pain; M79.1 Myalgia; E11.9 Type 2 diabetes mellitus without complications; I10 Essential (primary) hypertension; K22.2 Esophageal obstruction; Z79.82 Long term (current) use of aspirin; Z79.84 Long term (current) use of oral hypoglycemic drugs; Z79.899 Other long term (current) drug therapy
CPT/HCPCS: J3301

== ENCOUNTER → 2017-09-03 | Outpatient (CLI) | payer MEDICARE, BC | LOC: M PAIN 09:15 | DX: M46.1 Sacroiliitis, not elsewhere classified (principal); M79.1 Myalgia; E11.9 Type 2 diabetes mellitus without complications; I10 Essential (primary) hypertension; Z79.82 Long term (current) use of aspirin; Z79.84 Long term (current) use of oral hypoglycemic drugs; Z79.899 Other long term (current) drug therapy; Z85.3 Personal history of malignant neoplasm of breast | CPT/HCPCS: G0463 ==

== ENCOUNTER → 2017-09-20 | Outpatient (CLI) | payer MEDICARE, BC ==
[~2017-09-20] MED LIST changes: -BUPIVACAINE HCL 0.25% 10 ML VIAL As Ordered; +ISOVUE-M 300 61% 15ML VIAL (Q9967) As Ordered; +LIDOCAINE 1% SDV INJ 30 ML VIAL As Ordered
== END ==
LOC: M PAIN 08:30
DX: G89.29 Other chronic pain (principal); M46.1 Sacroiliitis, not elsewhere classified; E11.9 Type 2 diabetes mellitus without complications; I10 Essential (primary) hypertension; Z79.82 Long term (current) use of aspirin; Z79.84 Long term (current) use of oral hypoglycemic drugs; Z79.899 Other long term (current) drug therapy; Z85.3 Personal history of malignant neoplasm of breast
CPT/HCPCS: J3301

== ENCOUNTER → 2017-10-04 | Outpatient (CLI) | payer MEDICARE, BC | LOC: M PAIN 09:45 | DX: M46.1 Sacroiliitis, not elsewhere classified (principal); M79.1 Myalgia; E11.9 Type 2 diabetes mellitus without complications; I10 Essential (primary) hypertension; G47.33 Obstructive sleep apnea (adult) (pediatric); Z79.82 Long term (current) use of aspirin; Z79.84 Long term (current) use of oral hypoglycemic drugs; Z79.899 Other long term (current) drug therapy; Z85.3 Personal history of malignant neoplasm of breast | CPT/HCPCS: G0463 ==

== ENCOUNTER → 2018-01-04 | Outpatient (CLI) | payer MEDICARE, BC | LOC: M PAIN 08:30 | DX: M46.1 Sacroiliitis, not elsewhere classified (principal); M79.1 Myalgia; M53.88 Other specified dorsopathies, sacral and sacrococcygeal region; E11.9 Type 2 diabetes mellitus without complications; I10 Essential (primary) hypertension; G47.33 Obstructive sleep apnea (adult) (pediatric); Z79.82 Long term (current) use of aspirin; Z79.84 Long term (current) use of oral hypoglycemic drugs; Z79.899 Other long term (current) drug therapy; Z85.3 Personal history of malignant neoplasm of breast; Z90.13 Acquired absence of bilateral breasts and nipples | CPT/HCPCS: G0463 ==

== ENCOUNTER → 2018-01-22 | Outpatient (CLI) | payer MEDICARE, BC | LOC: M PAIN 08:30 | DX: G89.29 Other chronic pain (principal); M46.1 Sacroiliitis, not elsewhere classified; I89.0 Lymphedema, not elsewhere classified; E11.9 Type 2 diabetes mellitus without complications; I10 Essential (primary) hypertension; G47.33 Obstructive sleep apnea (adult) (pediatric); Z79.82 Long term (current) use of aspirin; Z79.84 Long term (current) use of oral hypoglycemic drugs; Z79.899 Other long term (current) drug therapy; Z90.13 Acquired absence of bilateral breasts and nipples; Z85.3 Personal history of malignant neoplasm of breast | CPT/HCPCS: J3301 ==

== ENCOUNTER → 2018-02-12 | Outpatient (CLI) | payer MEDICARE, BC | LOC: M PAIN 09:00 | DX: M46.1 Sacroiliitis, not elsewhere classified (principal); M79.1 Myalgia; E11.9 Type 2 diabetes mellitus without complications; I10 Essential (primary) hypertension; G47.33 Obstructive sleep apnea (adult) (pediatric); I89.0 Lymphedema, not elsewhere classified; Z79.82 Long term (current) use of aspirin; Z79.899 Other long term (current) drug therapy; Z90.13 Acquired absence of bilateral breasts and nipples; Z85.3 Personal history of malignant neoplasm of breast | CPT/HCPCS: G0463 ==

== ENCOUNTER → 2018-02-27 | Outpatient (CLI) | payer MEDICARE, BC | LOC: M ONCR 08:40 | DX: Z08 Encounter for follow-up examination after completed treatment for malignant neoplasm (principal); Z85.3 Personal history of malignant neoplasm of breast | CPT/HCPCS: G0463 ==

== ENCOUNTER → 2018-04-10 | Outpatient (CLI) | payer MEDICARE, BC | LOC: M PAIN 08:45 | DX: M46.1 Sacroiliitis, not elsewhere classified (principal); M79.1 Myalgia; E11.9 Type 2 diabetes mellitus without complications; I10 Essential (primary) hypertension; G47.33 Obstructive sleep apnea (adult) (pediatric); Z85.3 Personal history of malignant neoplasm of breast; Z90.13 Acquired absence of bilateral breasts and nipples; Z79.82 Long term (current) use of aspirin; Z79.84 Long term (current) use of oral hypoglycemic drugs; Z79.899 Other long term (current) drug therapy | CPT/HCPCS: G0463 ==

== ENCOUNTER 2018-04-19 09:46 | Emergency (ER) | payer MEDICARE, BC ==
[2018-04-19] MEDS: ONDANSETRON 4MG/2ML VIAL (J2405) IV (10:35)
[2018-04-19] MEDS: KETOROLAC 30 MG/ML VIAL (J1885) IV (10:44)
[2018-04-19 10:45] LABS: BASO % 0.4 % (0.0-1.0); EOS # 0.1 10^3/uL (0.0-0.50); EOS % 0.7 % (0.0-3.0); HEMATOCRIT 38.2 % (36.0-47.0); HEMOGLOBIN 12.1 g/dl (12.0-15.5); IMMATURE GRANULOCYTE % 0.7 % (0-3.0); LYMPH # 0.9 10^3/uL (1.5-4.5); LYMPH % 12.3 % (24.0-44.0); MEAN CORPUSCULAR HEMOGLOBIN 29.9 pg (27.0-33.0); MEAN CORPUSCULAR HGB CONC 31.7 g/dl (32.0-36.5); MEAN CORPUSCULAR VOLUME 94.3 fl (80.0-96.0); MONO # 0.5 10^3/uL (0.0-0.8); MONO % 6.6 % (0.0-5.0); NEUTROPHILS # 5.5 10^3/uL (1.8-7.7); NEUTROPHILS % 79.3 % (36.0-66.0); PLATELET COUNT, AUTOMATED 233 10^3/uL (150-450); RED BLOOD COUNT 4.05 10^6/uL (4.00-5.40); RED CELL DISTRIBUTION WIDTH 14.6 % (11.5-14.5)
[2018-04-19 10:55] LABS: ALBUMIN 3.7 GM/DL (3.2-5.2); ALBUMIN/GLOBULIN RATIO 1.09 (1.00-1.93); ALKALINE PHOSPHATASE 71 U/L (45-117); ALT/SGPT 36 U/L (12-78); ANION GAP 9 MEQ/L (8-16); AST/SGOT 23 U/L (7-37); BILIRUBIN,DIRECT < 0.1 MG/DL (0.0-0.2); BILIRUBIN,TOTAL 0.4 MG/DL (0.2-1.0); BLOOD UREA NITROGEN 22 MG/DL (7-18); CALCIUM LEVEL 8.7 MG/DL (8.8-10.2); CARBON DIOXIDE LEVEL 26 MEQ/L (21-32); CHLORIDE LEVEL 108 MEQ/L (98-107); GLOMERULAR FILTRATION RATE 46.9 (>39); GLUCOSE, FASTING 118 MG/DL (70-100); LIPASE 302 U/L (73-393); SODIUM LEVEL 143 MEQ/L (136-145); TOTAL PROTEIN 7.1 GM/DL (6.4-8.2)
[2018-04-19 11:34] LABS: AMORPHOUS SEDIMENT RFX SMALL (NEGATIVE); KETONE, URINE AUTO RFX NEGATIVE (NEGATIVE); LEUKOCYTE ESTERASE UR AUTO RFX NEGATIVE (NEGATIVE); MUCUS, URINE RFX SMALL (NEGATIVE); NITRITE, URINE AUTO RFX NEGATIVE (NEGATIVE); RBC, URINE AUTO RFX TNTC /HPF (0-3); SPECIFIC GRAVITY UR AUTO RFX 1.023 (1.002-1.035); SQUAM EPITHELIAL CELL UR AURFX 1 /HPF (0-6); WBC, URINE AUTO RFX 3 /HPF (0-3); YEAST LIKE CELL URINE AUTO RFX SMALL
[2018-04-19] MEDS: cefTRIAXone SOD 1 GM in D5W MINI-BAG PLUS 50 ML IV (13:29)
== END 2018-04-19 14:20 | disposition home or self-care (01) ==
LOC: M ED 09:46
DX: N05.9 Unspecified nephritic syndrome with unspecified morphologic changes (principal); E11.9 Type 2 diabetes mellitus without complications; I10 Essential (primary) hypertension
CPT/HCPCS: J2405

== ENCOUNTER → 2018-11-05 | Outpatient (CLI) | payer MEDICARE, BC ==
[~2018-11-05] MED LIST changes: +ALPH0.156 OU; +ASPI81TA85 PO; +ATEN25TA PO; +BIMA01SOL OU; -BUPIVACAINE HCL 0.25% 30 ML VIAL As Ordered; +BYET10IN10 SC; +COQ1150C PO; +COQ1200C3 PO; +CRES10TA PO; +FEMA2.5T4 PO; +GLUC1CAP PO; -ISOVUE-M 300 61% 15ML VIAL (Q9967) As Ordered; +KEFL500C17 PO; -LIDOCAINE 1% SDV INJ 30 ML VIAL As Ordered; +MELO15TA28 PO; +METF750T PO; +MULT1TAB18 PO; +NEXI40CA PO; +OMEGA COMPLEX PO; +RAMI1CAP24 PO; +SERT-141 PO; +SPIR-10 PO; -TRIAMCINOLONE ACETONIDE SUSP 40 MG/ML VIAL (J3301) As Ordered; +VITA-149 PO; +VITA-176 PO; +VITA-182 PO; +VITATAB11 PO; +[UNRECOGNIZED DRUG - OTHER] PO; -diazePAM 5 MG TAB As Ordered; -oxyCODONE 5MG TAB As Ordered
--- NOTE | 2018-11-22 01:00 | ECWPNPC ---
PATIENT NAME: MATT MOORE : 1945 GENDER: FEMALE VISIT DATE: 11/05/2018 DISCHARGE DATE: 11/05/18 1030 VISIT LOCKED DATE TIME: PHYSICIAN: JIMBO BISHOP RESOURCE: JIMBO BISHOP REASON FOR APPOINTMENT 1. BACK HISTORY OF PRESENT ILLNESS HISTORY OF PRESENT ILLNESS: HERE FOR F/U OF CHRONIC LOW BACK PAIN WITH LEFT LEG RADICULAR SYMPTOMS.RATING PAIN VAS 3/10.PAIN IS AGGREVATED WITH WALKING OR STANDING.DESCRIBES PAIN INTERMITTENT ACHING. PAIN THE PATIENT DESCRIBES THE PAIN... FALL RISK SCREENING: SCREENING :NO FALLS REPORTED IN THE LAST YEAR CURRENT MEDICATIONS TAKING ALPHAGAN P 0.1 % SOLUTION 1 DROP INTO AFFECTED EYE OPHTHALMIC BID TAKING BYETTA 10 MCG PEN 10 MCG/0.04ML SOLUTION PEN-INJECTOR 0.02 ML UP TO 1 HOUR BEFORE BREAKFAST AND EVENING MEAL SUBCUTANEOUS TWICE A DAY TAKING MULTIVITAMIN ADULT TABLET ORALLY DAILY TAKING VITAMIN D 1000 UNIT TABLET 1 TABLET ORALLY ONCE A DAY TAKING VITAMIN B COMPLEX TABLET ORALLY DAILY TAKING VITAMIN C & D3/OMID HIPS 500-1000-20 MG-UNIT-MG CAPSULE ORALLY DAILY TAKING COQ-10 100 MG CAPSULE 1 CAPSULE WITH A MEAL ORALLY ONCE A DAY TAKING [id number] COMPLEX TABLET ORALLY DAILY TAKING ASPIR-81 81 MG TABLET DELAYED RELEASE 1 TABLET ORALLY ONCE A DAY TAKING FEMARA 2.5 MG TABLET 1 TABLET ORALLY ONCE A DAY TAKING METFORMIN HCL ER 750 MG TABLET EXTENDED RELEASE 24 HOUR ORAL BID TAKING CRESTOR 10 MG TABLET ORAL ONCE DAILY TAKING RAMIPRIL 5 MG CAPSULE ORAL ONCE DAILY TAKING SPIRONOLACTONE 25 MG TABLET ORAL ONCE DAILY TAKING SERTRALINE HCL 100 MG TABLET ORALLY ONCE DAILY TAKING LUMIGAN 0.01 % SOLUTION 1 DROP INTO AFFECTED EYE IN THE EVENING OPHTHALMIC OU DAILY TAKING ATENOLOL 25 MG TABLET ORAL ONCE DAILY TAKING NEXIUM 40 MG CAPSULE DELAYED RELEASE 1 CAPSULE ORALLY ONCE A DAY TAKING MAY HAVE - - MEDICAL MARIJUANA DAILY TAKING MELOXICAM 15 MG TABLET 1 TABLET ORALLY ONCE A DAY MEDICATION LIST REVIEWED AND RECONCILED WITH THE PATIENT PAST MEDICAL HISTORY BREAST CANCER LEFT WITH LYMPHEDEMA DM HTN ESOPHAGEAL STRICTURE RICHARD WITH CPAP ALLERGIES NONE SURGICAL HISTORY D/C HYSTERECTOMY BILATERAL MASTECTOMY 2010 INFUSAPORT INSERTED 2010 INFUSAPORT REMOVED 2011 EGD-DILATATION 08/2016 CATARACT SURGERIES-BOTH EYES 09/2106 FAMILY HISTORY FATHER: 70 YRS, DIAGNOSED WITH HEART DISEASE MOTHER: 70 YRS, HEART DISEASE, STROKE 1 SISTER(S) - HEALTHY. 1 SON(S) , 1 DAUGHTER(S) . 4 - BROTHERS ( AORTIC ANEURYSM, STROKE, CANCER ) SON - HTN, PSORIATIC ARTHRITIS , DAUGHTER- HEALTHY. SOCIAL HISTORY GENERAL: TOBACCO USE ARE YOU A:NONSMOKER ALCOHOL SCREENING DID YOU HAVE A DRINK CONTAINING ALCOHOL IN THE PAST YEAR?YES HOW OFTEN DID YOU HAVE A DRINK CONTAINING ALCOHOL IN THE PAST YEAR?MONTHLY OR LESS (1 POINT) HOW MANY DRINKS DID YOU HAVE ON A TYPICAL DAY WHEN YOU WERE DRINKING IN THE PAST YEAR?1 OR 2 (0 POINTS) HOW OFTEN DID YOU HAVE SIX OR MORE DRINKS ON ONE OCCASION IN THE PAST YEAR?NEVER (0 POINTS) POINTS1 INTERPRETATIONNEGATIVE RECREATIONAL DRUG USE DRUG USE?NO HAS MEDICAL MARIJUANA CAFFEINE CAFFEINE USE?NO ADVENTIST [id number] BAPTISM LANGUAGE LANGUAGES SPOKEN:LUXEMBOURGISH LEARNING BARRIERS / SPECIAL NEEDS CHANGE FROM LAST VISIT?NO BARRIERS TO LEARNING?NO HEARING IMPAIRED?NO VISION IMPAIRED?NO COGNITIVELY IMPAIRED?NO READINESS TO LEARN?NO LEARNING PREFERENCES?NO LEARNING CAPABILITIES PRESENT?YES EMOTIONAL BARRIERS?NO SPECIAL DEVICES?NO SAXOPHONE ASSEMBLER NEEDED?NO DOMESTIC VIOLENCE DO YOU FEEL SAFE IN YOUR ENVIRONMENT?YES PAIN CLINIC PFS, CLERGY, PUBLIC HEALTH REFERRALS PFS REFERRAL NEEDED?NO CLERGY REFERRAL NEEDED?NO PUBLIC HEALTH REFERRAL NEEDED?NO WAS THE PROVIDER NOTIFIED OF ANY PERTINENT INFO?NO N/A HAS THE PATIENT BEEN EDUCATED REGARDING HIS/HER PLAN OF CARE?YES HAS THE PATIENT BEEN EDUCATED REGARDING PAIN, THE RISK FOR PAIN, THE IMPORTANCE OF EFFECTIVE PAIN MANAGEMENT, AND THE PAIN ASSESSMENT PROCESS?YES ADVANCE DIRECTIVE ADVANCE DIRECTIVE DISCUSSED WITH PATIENT:YES 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 CONSTITUTIONAL: ANY CHANGE IN YOUR MEDICAL CONDITION? NO . CHILLS NO . FEVER NO . INFECTION: DO YOU HAVE NEW INFECTIONS? NO . DO YOU HAVE HISTORY OF MRSA? NO . MUSCULOSKELETAL: ANY NEW PATTERNS OF PAIN OR NUMBNESS? NO . GASTROENTEROLOGY: ANY NEW CHANGE IN BOWEL CONTROL? NO . GENITOURINARY: ANY NEW CHANGE IN BLADDER CONTROL? NO . IS THERE A CHANCE YOU COULD BE ? NO . HEMATOLOGY/LYMPH: DO YOU TAKE ANY BLOOD THINNERS? (FOR EXAMPLE- COUMADIN, PLAVIX, AGGRENOX, PLATEL, PRADAXA, OR XARELTO) NO . WHEN WAS YOUR LAST DOSE? DATE: TIME: . NEUROLOGY: HAVE YOU FALLEN IN THE PAST 12 MONTHS? NO . ANY NEW EXTREMITY NUMBNESS OR WEAKNESS? NO . CARDIOLOGY: DO YOU HAVE A PACEMAKER OR DEFIBRILLATOR? NO . RESPIRATORY: HAVE YOU BEEN SICK IN THE PAST WEEK? NO . FEVER NO . FLU LIKE SYMPTOMS? NO . COUGH NO . INTEGUMENTARY: DO YOU HAVE ANY RASHES OR OPEN SORES? NO . ALLERGIC/IMMUNO: ARE YOU ALLERGIC TO IV DYE? NO . ANY NEW ALLERGIES? NO . PSYCHIATRIC: DO YOU HAVE THOUGHTS OF HURTING YOURSELF OR SOMEONE ELSE? NO . ARE YOU ABUSED, NEGLECTED, OR IN AN UNSAFE ENVIRONMENT? NO . ENDOCRINOLOGY: ARE YOU DIABETIC? YES . OTHER: DO YOU NEED ANY PRESCRIPTIONS? NO . IF YES, PLEASE LIST: ____ . ANY NEW PROBLEMS WITH YOUR MEDICATIONS? NO . WHEN DID YOU LAST EAT? ____ . WHEN DID YOU LAST DRINK? ____ . WHAT DID YOU LAST DRINK? ____ . NAME OF PERSON DRIVING YOU HOME? ____ . DO YOU HAVE ANY OTHER QUESTIONS OR CONCERNS NO . VITAL SIGNS WT 304.6 LBS, HT 65 IN, BMI 50.68 INDEX, BP 145/92 MM HG, HR 89 /MIN, RR 16 /MIN, TEMP 96.8 F, OXYGEN SAT % 94%, NA INITIALS [place] 09:57, REVIEWED BY: JEROME. EXAMINATION GENERAL EXAMINATION: GENERAL APPEARANCE: ALERT,APPEARS UNCOMFORTABLE,MORBIDLY OBESE. PSYCH AFFECT NORMAL . LUNGS: LUNG SOUNDS ARE CLEAR . HEART: HEART RATE REGULAR . MUSCULOSKELETAL: MST 5/5 BILAT. LOWER EXTREMITIES . LUMBAR SACRAL SPINE TENDERNESS LEFT SIJ. DIAGNOSTIC TESTS REVIEWED CT L/S [id number] . ASSESSMENTS SACROILIITIS - M46.1 (PRIMARY) TREATMENT SACROILIITIS CONTINUE MELOXICAM TABLET, 15 MG, 1 TABLET, ORALLY, ONCE A DAY PROCEDURE CODES FA211 ESTABILISHED PATIENT [facility] CHARGE DISPOSITION & COMMUNICATION FOLLOW UP 2 MONTHS ELECTRONICALLY SIGNED BY LIOR ALTAMIRANO ON 11/20/2018 AT 01:08 PM EDT DISCLAIMER : THIS IS A VISIT SUMMARY EXTRACTED FROM THE [employer] CHART. IT IS NOT A COPY OF THE [employer] PROGRESS NOTE. SUMID
== END ==
LOC: M PAIN 09:45
PROVIDERS: ATTEND Nurse Practitioner Family
DX: M46.1 Sacroiliitis, not elsewhere classified (principal); G89.29 Other chronic pain; Z85.3 Personal history of malignant neoplasm of breast; E11.9 Type 2 diabetes mellitus without complications; I10 Essential (primary) hypertension; G47.33 Obstructive sleep apnea (adult) (pediatric); E66.01 Morbid (severe) obesity due to excess calories; Z68.43 Body mass index [BMI] 50.0-59.9, adult; Z79.82 Long term (current) use of aspirin; Z79.84 Long term (current) use of oral hypoglycemic drugs; Z79.899 Other long term (current) drug therapy

== ENCOUNTER → 2019-01-06 | Outpatient (CLI) | payer MEDICARE, BC ==
--- NOTE | 2019-01-21 02:16 | ECWPNPC ---
PATIENT NAME: MATT MOORE : 1945 GENDER: FEMALE VISIT DATE: 01/06/2019 DISCHARGE DATE: 01/06/19 1028 VISIT LOCKED DATE TIME: PHYSICIAN: JIMBO BISHOP RESOURCE: JIMBO BISHOP REASON FOR APPOINTMENT 1. BACK HISTORY OF PRESENT ILLNESS HISTORY OF PRESENT ILLNESS: HERE FOR F/U OF CHRONIC LOW BACK PAIN WITH LEFT LEG RADICULAR SYMPTOMS.RATING PAIN VAS 4/10.PAIN IS AGGREVATED WITH WALKING OR STANDING.DESCRIBES PAIN INTERMITTENT ACHING.PAIN HAS ESCALATED RECENTLY.FINDING IT DIFFICULT TO ATTEND TO ADL'S DUE TO LBP L>R. PAIN THE PATIENT DESCRIBES THE PAIN... THE PATIENT DESCRIBES THE PAIN... FALL RISK SCREENING: SCREENING :NO FALLS REPORTED IN THE LAST YEAR CURRENT MEDICATIONS TAKING ALPHAGAN P 0.1 % SOLUTION 1 DROP INTO AFFECTED EYE OPHTHALMIC BID TAKING BYETTA 10 MCG PEN 10 MCG/0.04ML SOLUTION PEN-INJECTOR 0.02 ML UP TO 1 HOUR BEFORE BREAKFAST AND EVENING MEAL SUBCUTANEOUS TWICE A DAY TAKING MULTIVITAMIN ADULT TABLET ORALLY DAILY TAKING VITAMIN D 1000 UNIT TABLET 1 TABLET ORALLY ONCE A DAY TAKING VITAMIN B COMPLEX TABLET ORALLY DAILY TAKING VITAMIN C & D3/OMID HIPS 500-1000-20 MG-UNIT-MG CAPSULE ORALLY DAILY TAKING COQ-10 100 MG CAPSULE 1 CAPSULE WITH A MEAL ORALLY ONCE A DAY TAKING [id number] COMPLEX TABLET ORALLY DAILY TAKING ASPIR-81 81 MG TABLET DELAYED RELEASE 1 TABLET ORALLY ONCE A DAY TAKING METFORMIN HCL ER 750 MG TABLET EXTENDED RELEASE 24 HOUR ORAL BID TAKING CRESTOR 10 MG TABLET ORAL ONCE DAILY TAKING RAMIPRIL 5 MG CAPSULE ORAL ONCE DAILY TAKING SPIRONOLACTONE 25 MG TABLET ORAL ONCE DAILY TAKING SERTRALINE HCL 100 MG TABLET ORALLY ONCE DAILY TAKING LUMIGAN 0.01 % SOLUTION 1 DROP INTO AFFECTED EYE IN THE EVENING OPHTHALMIC OU DAILY TAKING ATENOLOL 25 MG TABLET ORAL ONCE DAILY TAKING NEXIUM 40 MG CAPSULE DELAYED RELEASE 1 CAPSULE ORALLY ONCE A DAY TAKING MAY HAVE - - MEDICAL MARIJUANA DAILY TAKING MELOXICAM 15 MG TABLET 1 TABLET ORALLY ONCE A DAY NOT-TAKING FEMARA 2.5 MG TABLET 1 TABLET ORALLY ONCE A DAY MEDICATION LIST REVIEWED AND RECONCILED WITH THE PATIENT PAST MEDICAL HISTORY BREAST CANCER LEFT WITH LYMPHEDEMA DM HTN ESOPHAGEAL STRICTURE RICHARD WITH CPAP CHRONIC BACK PAIN ALLERGIES N.K.D.A. SURGICAL HISTORY D/C HYSTERECTOMY BILATERAL MASTECTOMY 2010 INFUSAPORT INSERTED 2010 INFUSAPORT REMOVED 2011 EGD-DILATATION 08/2016 CATARACT SURGERIES-BOTH EYES 09/2106 FAMILY HISTORY FATHER: 70 YRS, DIAGNOSED WITH HEART DISEASE MOTHER: 70 YRS, HEART DISEASE, STROKE 1 SISTER(S) - HEALTHY. 1 SON(S) , 1 DAUGHTER(S) . 4 - BROTHERS ( AORTIC ANEURYSM, STROKE, CANCER ) SON - HTN, PSORIATIC ARTHRITIS , DAUGHTER- HEALTHY. SOCIAL HISTORY GENERAL: TOBACCO USE ARE YOU A:NONSMOKER PAIN CLINIC PFS, CLERGY, PUBLIC HEALTH REFERRALS PFS REFERRAL NEEDED?NO CLERGY REFERRAL NEEDED?NO PUBLIC HEALTH REFERRAL NEEDED?NO WAS THE PROVIDER NOTIFIED OF ANY PERTINENT INFO?NO N/A HAS THE PATIENT BEEN EDUCATED REGARDING HIS/HER PLAN OF CARE?YES HAS THE PATIENT BEEN EDUCATED REGARDING PAIN, THE RISK FOR PAIN, THE IMPORTANCE OF EFFECTIVE PAIN MANAGEMENT, AND THE PAIN ASSESSMENT PROCESS?YES LATEX QUESTIONNAIRE LATEX ALLERGY : HAVE YOU EVER DEVELOPED ANY TYPE OF REACTION AFTER HANDLING LATEX PRODUCTS SUCH RUBBER GLOVES, CONDOMS, DIAPHRAGMS, BALLOONS, SOCKS, OR UNDERWEAR?NO LATEX ALLERGY : HAVE YOU EVER DEVELOPED ANY TYPE OF REACTION DURING OR AFTER DENTAL APPOINTMENT, VAGINAL/RECTAL EXAMINATION, SURGICAL PROCEDURE, OR ANY OTHER EXPOSURE?NO LATEX RISK : HAVE YOU EVER HAD ANY DIFFICULTY BREATHING OR HIVES AFTER EATING OR HANDLING ANY FRUITS, OR VEGETABLES; SUCH KIWI, BANANAS, STONE FRUITS, OR CHESTNUTSNO LATEX RISK : DO YOU HAVE A PREVIOUS PERSONAL HISTORY OF MORE THAN NINE SURGERIES, SPINA BIFIDA, OR REPEATED CATHERTIZATIONS? 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 [phone] SABIANISM [id number] WORSHIP LANGUAGE LANGUAGES SPOKEN:KYRGYZ DOMESTIC VIOLENCE DO YOU FEEL SAFE IN YOUR ENVIRONMENT?YES ALCOHOL SCREENING DID YOU HAVE A DRINK CONTAINING ALCOHOL IN THE PAST YEAR?YES HOW OFTEN DID YOU HAVE A DRINK CONTAINING ALCOHOL IN THE PAST YEAR?MONTHLY OR LESS (1 POINT) HOW MANY DRINKS DID YOU HAVE ON A TYPICAL DAY WHEN YOU WERE DRINKING IN THE PAST YEAR?1 OR 2 (0 POINTS) HOW OFTEN DID YOU HAVE SIX OR MORE DRINKS ON ONE OCCASION IN THE PAST YEAR?NEVER (0 POINTS) POINTS1 INTERPRETATIONNEGATIVE RECREATIONAL DRUG USE DRUG USE?NO HAS MEDICAL MARIJUANA LEARNING BARRIERS / SPECIAL NEEDS CHANGE FROM LAST VISIT?NO BARRIERS TO LEARNING?NO HEARING IMPAIRED?NO VISION IMPAIRED?NO COGNITIVELY IMPAIRED?NO READINESS TO LEARN?NO LEARNING PREFERENCES?NO LEARNING CAPABILITIES PRESENT?YES EMOTIONAL BARRIERS?NO SPECIAL DEVICES?NO SHOP ESTIMATOR NEEDED?NO REVIEWED WITH PATIENT 01/06/19 3141 JS. HOSPITALIZATION/MAJOR DIAGNOSTIC PROCEDURE SURGERY RELATED REVIEW OF SYSTEMS REVIEWED BY: PROVIDER: JIMBO TINAJERO . CONSTITUTIONAL: ANY CHANGE IN YOUR MEDICAL CONDITION? NO . CHILLS NO . FEVER NO . INFECTION: DO YOU HAVE NEW INFECTIONS? NO . DO YOU HAVE HISTORY OF MRSA? NO . MUSCULOSKELETAL: ANY NEW PATTERNS OF PAIN OR NUMBNESS? NO . GASTROENTEROLOGY: ANY NEW CHANGE IN BOWEL CONTROL? NO . GENITOURINARY: ANY NEW CHANGE IN BLADDER CONTROL? NO . IS THERE A CHANCE YOU COULD BE ? NO . HEMATOLOGY/LYMPH: DO YOU TAKE ANY BLOOD THINNERS? (FOR EXAMPLE- COUMADIN, PLAVIX, AGGRENOX, PLATEL, PRADAXA, OR XARELTO) NO . WHEN WAS YOUR LAST DOSE? DATE: TIME: . NEUROLOGY: HAVE YOU FALLEN IN THE PAST 12 MONTHS? NO . ANY NEW EXTREMITY NUMBNESS OR WEAKNESS? NO . CARDIOLOGY: DO YOU HAVE A PACEMAKER OR DEFIBRILLATOR? NO . RESPIRATORY: HAVE YOU BEEN SICK IN THE PAST WEEK? NO . FEVER NO . FLU LIKE SYMPTOMS? NO . COUGH NO . INTEGUMENTARY: DO YOU HAVE ANY RASHES OR OPEN SORES? NO . ALLERGIC/IMMUNO: ARE YOU ALLERGIC TO IV DYE? NO . ANY NEW ALLERGIES? NO . PSYCHIATRIC: DO YOU HAVE THOUGHTS OF HURTING YOURSELF OR SOMEONE ELSE? NO . ARE YOU ABUSED, NEGLECTED, OR IN AN UNSAFE ENVIRONMENT? NO . ENDOCRINOLOGY: ARE YOU DIABETIC? YES . OTHER: DO YOU NEED ANY PRESCRIPTIONS? NO . IF YES, PLEASE LIST: ____ . ANY NEW PROBLEMS WITH YOUR MEDICATIONS? NO . WHEN DID YOU LAST EAT? ____ . WHEN DID YOU LAST DRINK? ____ . WHAT DID YOU LAST DRINK? ____ . NAME OF PERSON DRIVING YOU HOME? ____ . DO YOU HAVE ANY OTHER QUESTIONS OR CONCERNS NO . VITAL SIGNS WT 307.2 LBS, HT 65 IN, BMI 51.12 INDEX, BP 153/76 MM HG, HR 97 /MIN, RR 18 /MIN, TEMP 97.2 F, OXYGEN SAT % 96%, SAFE IN ENV? (Y/N) YES, NA INITIALS [place] 09:40, REVIEWED BY: KATTY. EXAMINATION GENERAL EXAMINATION: DEPRESSED AFFECT ALERT,APPEARS UNCOMFORTABLE,MORBIDLY OBESE. PSYCH AFFECT NORMAL . LUNGS: LUNG SOUNDS ARE CLEAR . HEART: HEART RATE REGULAR . MUSCULOSKELETAL: MST 5/5 BILAT. LOWER EXTREMITIES . LUMBAR SACRAL SPINETENDERNESS OVER BILAT. SIJ L>R. DIAGNOSTIC TESTS REVIEWED CT L/S [id number] . ASSESSMENTS SACROILIITIS - M46.1 (PRIMARY) TREATMENT SACROILIITIS NOTES: BILAT. SIJ. PREVENTIVE MEDICINE PAIN CLINIC TEACHING: PROCEDURE TEACHING REVIEWED INFORMATION ON SACROILIAC JOINT INJECTION PROCEDURE WITH PATIENT. ALSO REVIEWED PRE-PROCEDURE INSTRUCTIONS. PATIENT VERBALIZED AN UNDERSTANDING. SHAQUILLE SANTOYO 01/06/2019 10:27:00 AM > . PROCEDURE CODES FA211 ESTABILISHED PATIENT [facility] CHARGE DISPOSITION & COMMUNICATION FOLLOW UP POST (REASON: BILAT. SIJ) ELECTRONICALLY SIGNED BY LIOR ALTAMIRANO ON 01/20/2019 AT 04:02 PM EDT DISCLAIMER : THIS IS A VISIT SUMMARY EXTRACTED FROM THE [employer] CHART. IT IS NOT A COPY OF THE [employer] PROGRESS NOTE. JACINDA
== END ==
LOC: M PAIN 09:30
PROVIDERS: ATTEND Nurse Practitioner Family
DX: M46.1 Sacroiliitis, not elsewhere classified (principal); E11.9 Type 2 diabetes mellitus without complications; I10 Essential (primary) hypertension; G47.33 Obstructive sleep apnea (adult) (pediatric); Z85.3 Personal history of malignant neoplasm of breast; Z98.41 Cataract extraction status, right eye; Z98.42 Cataract extraction status, left eye; Z90.13 Acquired absence of bilateral breasts and nipples; Z79.82 Long term (current) use of aspirin; Z79.84 Long term (current) use of oral hypoglycemic drugs; Z79.899 Other long term (current) drug therapy; Z79.1 Long term (current) use of non-steroidal anti-inflammatories (NSAID)

== ENCOUNTER → 2019-02-26 | Outpatient (CLI) | payer MEDICARE, BC ==
[~2019-02-26] MED LIST changes: +BUPIVACAINE HCL 0.25% 30 ML VIAL As Ordered ONE; +ISOVUE-M 200 41% 20ML VIAL (Q9966) As Ordered ONE; +LIDOCAINE 1% SDV INJ 30 ML VIAL As Ordered ONE; +TRIAMCINOLONE ACETONIDE SUSP 40 MG/ML VIAL (J3301) As Ordered ONE; +diazePAM 5 MG TAB As Ordered ONE; +oxyCODONE 5MG TAB As Ordered ONE
--- NOTE | 2019-02-26 15:03 | REP ---
Bilateral SI joint series: History: Bilateral SI joint injection for pain. 30 seconds of fluoroscopy time is reported. Findings: A sequence of four last image hold fluoroscopically obtained spot radiographs of the SI joints document various needle positions for bilateral SI joint injection procedure. Electronically Signed by Celestine Weeks MD 02/26/2019 09:02 P
--- NOTE | 2019-03-05 00:54 | ECWPNPC ---
PATIENT NAME: MATT MOORE : 1945 GENDER: FEMALE VISIT DATE: 02/26/2019 DISCHARGE DATE: 02/26/19 1038 VISIT LOCKED DATE TIME: PHYSICIAN: JALEN WONG MD RESOURCE: JALEN WONG MD REASON FOR APPOINTMENT 1. BILSYBIL. GIOVANNY HISTORY OF PRESENT ILLNESS HISTORY OF PRESENT ILLNESS: PAIN THE PATIENT DESCRIBES THE PAIN... FALL RISK SCREENING: SCREENING :NO FALLS REPORTED IN THE LAST YEAR CURRENT MEDICATIONS TAKING ALPHAGAN P 0.1 % SOLUTION 1 DROP INTO AFFECTED EYE OPHTHALMIC ONCE DAILY, NOTES: 02/25/19 AM TAKING BYETTA 10 MCG PEN 10 MCG/0.04ML SOLUTION PEN-INJECTOR 0.02 ML UP TO 1 HOUR BEFORE BREAKFAST AND EVENING MEAL SUBCUTANEOUS TWICE A DAY, NOTES: 02/25/19 TAKING MULTIVITAMIN ADULT TABLET ORALLY DAILY, NOTES: 02/25/19 TAKING VITAMIN D 1000 UNIT TABLET 1 TABLET ORALLY ONCE A DAY, NOTES: 02/25/19 TAKING VITAMIN B COMPLEX TABLET ORALLY DAILY, NOTES: 02/25/19 TAKING VITAMIN C & D3/OMID HIPS 500-1000-20 MG-UNIT-MG CAPSULE ORALLY DAILY, NOTES: 02/25/19 TAKING COQ-10 100 MG CAPSULE 1 CAPSULE WITH A MEAL ORALLY ONCE A DAY, NOTES: 02/25/19 TAKING [id number] COMPLEX TABLET ORALLY DAILY, NOTES: 02/25/19 TAKING ASPIR-81 81 MG TABLET DELAYED RELEASE 1 TABLET ORALLY ONCE A DAY, NOTES: 02/24/19 PM TAKING METFORMIN HCL ER 750 MG TABLET EXTENDED RELEASE 24 HOUR ORAL BID, NOTES: 02/25/19 PM TAKING CRESTOR 10 MG TABLET ORAL ONCE DAILY, NOTES: 02/25/19 PM TAKING RAMIPRIL 5 MG CAPSULE ORAL ONCE DAILY, NOTES: 02/25/19 PM TAKING SPIRONOLACTONE 25 MG TABLET ORAL ONCE DAILY, NOTES: 02/25/19 AM TAKING SERTRALINE HCL 100 MG TABLET ORALLY ONCE DAILY, NOTES: 02/25/19 PM TAKING LUMIGAN 0.01 % SOLUTION 1 DROP INTO AFFECTED EYE IN THE EVENING OPHTHALMIC OU DAILY, NOTES: 02/25/19 PM TAKING ATENOLOL 25 MG TABLET ORAL ONCE DAILY, NOTES: 02/25/19 PM TAKING NEXIUM 40 MG CAPSULE DELAYED RELEASE 1 CAPSULE ORALLY ONCE A DAY, NOTES: 02/25/19 PM TAKING MAY HAVE - - MEDICAL MARIJUANA DAILY, NOTES: 02/25/19 TAKING MELOXICAM 15 MG TABLET 1 TABLET ORALLY ONCE A DAY, NOTES: 02/25/19 PM NOT-TAKING FEMARA 2.5 MG TABLET 1 TABLET ORALLY ONCE A DAY MEDICATION LIST REVIEWED AND RECONCILED WITH THE PATIENT PAST MEDICAL HISTORY BREAST CANCER LEFT WITH LYMPHEDEMA DM HTN ESOPHAGEAL STRICTURE RICHARD WITH CPAP CHRONIC BACK PAIN ALLERGIES N.K.D.A. SURGICAL HISTORY D/C HYSTERECTOMY BILATERAL MASTECTOMY 2010 INFUSAPORT INSERTED 2010 INFUSAPORT REMOVED 2011 EGD-DILATATION 08/2016 CATARACT SURGERIES-BOTH EYES 09/2106 FAMILY HISTORY FATHER: 70 YRS, DIAGNOSED WITH HEART DISEASE MOTHER: 70 YRS, HEART DISEASE, STROKE 1 SISTER(S) - HEALTHY. 1 SON(S) , 1 DAUGHTER(S) . 4 - BROTHERS ( AORTIC ANEURYSM, STROKE, CANCER ) SON - HTN, PSORIATIC ARTHRITIS , DAUGHTER- HEALTHY. SOCIAL HISTORY GENERAL: TOBACCO USE ARE YOU A:NONSMOKER PAIN CLINIC PFS, CLERGY, PUBLIC HEALTH REFERRALS PFS REFERRAL NEEDED?NO CLERGY REFERRAL NEEDED?NO PUBLIC HEALTH REFERRAL NEEDED?NO WAS THE PROVIDER NOTIFIED OF ANY PERTINENT INFO?NO N/A HAS THE PATIENT BEEN EDUCATED REGARDING HIS/HER PLAN OF CARE?YES HAS THE PATIENT BEEN EDUCATED REGARDING PAIN, THE RISK FOR PAIN, THE IMPORTANCE OF EFFECTIVE PAIN MANAGEMENT, AND THE PAIN ASSESSMENT PROCESS?YES LATEX QUESTIONNAIRE LATEX ALLERGY : HAVE YOU EVER DEVELOPED ANY TYPE OF REACTION AFTER HANDLING LATEX PRODUCTS SUCH RUBBER GLOVES, CONDOMS, DIAPHRAGMS, BALLOONS, SOCKS, OR UNDERWEAR?NO LATEX ALLERGY : HAVE YOU EVER DEVELOPED ANY TYPE OF REACTION DURING OR AFTER DENTAL APPOINTMENT, VAGINAL/RECTAL EXAMINATION, SURGICAL PROCEDURE, OR ANY OTHER EXPOSURE?NO LATEX RISK : HAVE YOU EVER HAD ANY DIFFICULTY BREATHING OR HIVES AFTER EATING OR HANDLING ANY FRUITS, OR VEGETABLES; SUCH KIWI, BANANAS, STONE FRUITS, OR CHESTNUTSNO LATEX RISK : DO YOU HAVE A PREVIOUS PERSONAL HISTORY OF MORE THAN NINE SURGERIES, SPINA BIFIDA, OR REPEATED CATHERIZATIONS? 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 [phone] LUTHERAN [id number] ANGLICAN LANGUAGE LANGUAGES SPOKEN:MARSHALLESE DOMESTIC VIOLENCE DO YOU FEEL SAFE IN YOUR ENVIRONMENT?YES ALCOHOL SCREENING DID YOU HAVE A DRINK CONTAINING ALCOHOL IN THE PAST YEAR?YES HOW OFTEN DID YOU HAVE A DRINK CONTAINING ALCOHOL IN THE PAST YEAR?MONTHLY OR LESS (1 POINT) HOW MANY DRINKS DID YOU HAVE ON A TYPICAL DAY WHEN YOU WERE DRINKING IN THE PAST YEAR?1 OR 2 (0 POINTS) HOW OFTEN DID YOU HAVE SIX OR MORE DRINKS ON ONE OCCASION IN THE PAST YEAR?NEVER (0 POINTS) POINTS1 INTERPRETATIONNEGATIVE RECREATIONAL DRUG USE DRUG USE?NO HAS MEDICAL MARIJUANA LEARNING BARRIERS / SPECIAL NEEDS CHANGE FROM LAST VISIT?NO BARRIERS TO LEARNING?NO HEARING IMPAIRED?NO VISION IMPAIRED?NO COGNITIVELY IMPAIRED?NO READINESS TO LEARN?NO LEARNING PREFERENCES?NO LEARNING CAPABILITIES PRESENT?YES EMOTIONAL BARRIERS?NO SPECIAL DEVICES?NO COOK CAMP NEEDED?NO REVIEWED WITH PATIENT 01/06/19 0947 JSREVIEWED WITH PT 02/26/19 0854 BV. HOSPITALIZATION/MAJOR DIAGNOSTIC PROCEDURE SURGERY RELATED REVIEW OF SYSTEMS REVIEWED BY: PROVIDER: . CONSTITUTIONAL: ANY CHANGE IN YOUR MEDICAL CONDITION? NO . CHILLS NO . FEVER NO . INFECTION: DO YOU HAVE NEW INFECTIONS? NO . DO YOU HAVE HISTORY OF MRSA? NO . MUSCULOSKELETAL: ANY NEW PATTERNS OF PAIN OR NUMBNESS? NO . GASTROENTEROLOGY: ANY NEW CHANGE IN BOWEL CONTROL? NO . GENITOURINARY: ANY NEW CHANGE IN BLADDER CONTROL? NO . IS THERE A CHANCE YOU COULD BE ? NO . HEMATOLOGY/LYMPH: DO YOU TAKE ANY BLOOD THINNERS? (FOR EXAMPLE- COUMADIN, PLAVIX, AGGRENOX, PLATEL, PRADAXA, OR XARELTO) NO . WHEN WAS YOUR LAST DOSE? DATE: TIME: . NEUROLOGY: HAVE YOU FALLEN IN THE PAST 12 MONTHS? NO . ANY NEW EXTREMITY NUMBNESS OR WEAKNESS? NO . CARDIOLOGY: DO YOU HAVE A PACEMAKER OR DEFIBRILLATOR? NO . RESPIRATORY: HAVE YOU BEEN SICK IN THE PAST WEEK? NO . FEVER NO . FLU LIKE SYMPTOMS? NO . COUGH NO . INTEGUMENTARY: DO YOU HAVE ANY RASHES OR OPEN SORES? NO . ALLERGIC/IMMUNO: ARE YOU ALLERGIC TO IV DYE? NO . ANY NEW ALLERGIES? NO . PSYCHIATRIC: DO YOU HAVE THOUGHTS OF HURTING YOURSELF OR SOMEONE ELSE? NO . ARE YOU ABUSED, NEGLECTED, OR IN AN UNSAFE ENVIRONMENT? NO . ENDOCRINOLOGY: ARE YOU DIABETIC? YES, FSBS WAS 120 AT 0700 02/26/19 . OTHER: DO YOU NEED ANY PRESCRIPTIONS? NO . IF YES, PLEASE LIST: ____ . ANY NEW PROBLEMS WITH YOUR MEDICATIONS? NO . WHEN DID YOU LAST EAT? 02/25/191799 . WHEN DID YOU LAST DRINK? 02/25/191999 . WHAT DID YOU LAST DRINK? SODA . NAME OF PERSON DRIVING YOU HOME? ED MOORE . DO YOU HAVE ANY OTHER QUESTIONS OR CONCERNS NO . VITAL SIGNS WT 304.8 LBS, HT 65 IN, BMI 50.72 INDEX, BP 183/82 MM HG, REPEAT BP 133/81 MM HG, HR 84 /MIN, RR 18 /MIN, TEMP 98.1 F, OXYGEN SAT % 94%, NA INITIALS AW 0845, REVIEWED BY: BVLET NURSE KNOW ABOUT BP. 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 I EVALUATED THE PATIENT AND REVIEWED THE CHART. I WENT OVER THE RISKS, ALTERNATIVES, AND BENEFITS ASSOCIATED WITH THIS PROCEDURE. THE PATIENT WOULD LIKE TO PROCEED AND GAVE CONSENT TO PERFORM THE PROCEDURE. THE PATIENT DENIES UNEXPLAINABLE WEIGHT LOSS, FEVER, CHILLS, OR NEW CHANGES IN URINARY OR BOWEL CONTROL DESCRIPTION OF PROCEDURE THE PATIENT WAS BROUGHT TO THE PROCEDURE ROOM AND PLACED IN THE PRONE POSITION. THE LUMBOSACRAL AREA WAS CLEANED WITH CHLORAPREP SOLUTION AND DRAPED ASEPTICALLY. THE PROCEDURE WAS DONE UNDER STERILE CONDITIONS. I CHECKED LATERALITY AND THE LEVEL WHERE THE PROCEDURE WAS GOING TO BE PERFORMED WITH THE PATIENT AND THE SUPPORTING STAFF AT THE MOMENT OF THE TIME OUT IN THE PROCEDURE ROOM. UNDER FLUOROSCOPIC GUIDANCE, TARGET POINT WAS SELECTED AT THE LOWER BORDER OF THE RIGHT AND LEFT SACROILIAC JOINT AREAS. TARGET POINT WAS SELECTED AFTER MEDIAL ROTATION AND TILT OF THE MAGNIFIER OF THE C-ARM. LIDOCAINE WAS USED TO NUMB THE SKIN AND SUBCUTANEOUS TISSUE BELOW IT. A SPINAL NEEDLE, 22-GAUGE, WAS ADVANCED UNDER FLUOROSCOPIC GUIDANCE AND FOLLOWING PATIENT FEEDBACK UNTIL THE TARGET AREA WAS TOUCHED. THE POSITION OF THE NEEDLE WAS VERIFIED WITH AP AND LATERAL VIEWS. AFTER PROPER POSITION OF THE NEEDLE WAS ACHIEVED, ISOVUE M-200 CONTRAST WAS INJECTED SHOWING SPREAD OF THE DYE. THEN, A SOLUTION OF 30 MG OF KENALOG WAS INJECTED IN RIGHT AND LEFT JOINT WITH 3 ML OF BUPIVACAINE 0.125%. THERE WAS NO EVIDENCE OF BLOOD, PARESTHESIA OR CEREBROSPINAL FLUID DURING THE PROCEDURE. THE PATIENT WAS SENT TO THE RECOVERY ROOM. THE PATIENT WAS MOVING THE EXTREMITIES AND DOING WELL. THERE WAS NO COMPLICATION DURING THE PROCEDURE. FLUOROSCOPY TIME WAS 30 SECONDS POST PROCEDURE NOTE THE PATIENT WILL BE SEEN IN A FOLLOW UP IN THE NEXT FEW WEEKS. INSTRUCTIONS WERE GIVEN, QUESTIONS WERE ANSWERED, AND THE PATIENT EXPRESSED UNDERSTANDING AND AGREED WITH THE PLAN. I, JADYN DE OLIVEIRA, DOCUMENTED THE ABOVE INFORMATION ACTING A SCRIBE FOR DR. WONG. I HAVE REVIEWED THE ABOVE DOCUMENT, WRITTEN BY JADYN DAVENPORTIBRadha AND I VERIFY THAT IT IS ACCURATE. PROCEDURE CODES 72440 INJECT SACROILIAC JOINT, MODIFIERS: 50 [id number] RADXPS IN END [id number] [id number] DISPOSITION & COMMUNICATION FOLLOW UP 3 WEEKS ELECTRONICALLY SIGNED BY JALEN WONG MD, MD ON 03/04/2019 AT 01:56 PM EDT DISCLAIMER : THIS IS A VISIT SUMMARY EXTRACTED FROM THE [facility] CHART. IT IS NOT A COPY OF THE [facility] PROGRESS NOTE. MTDD
== END ==
LOC: M PAIN 08:45
PROVIDERS: ATTEND Anesthesiology
DX: G89.29 Other chronic pain (principal); M46.1 Sacroiliitis, not elsewhere classified; M54.5 Low back pain; E11.9 Type 2 diabetes mellitus without complications; I10 Essential (primary) hypertension; Z79.82 Long term (current) use of aspirin; Z79.899 Other long term (current) drug therapy
CPT/HCPCS: G0260; J3301; Q9966

== ENCOUNTER → 2019-04-14 | Outpatient (CLI) | payer MEDICARE, BC ==
[~2019-04-14] MED LIST changes: -BUPIVACAINE HCL 0.25% 30 ML VIAL As Ordered ONE; -ISOVUE-M 200 41% 20ML VIAL (Q9966) As Ordered ONE; -LIDOCAINE 1% SDV INJ 30 ML VIAL As Ordered ONE; -METF750T PO; +METF750T36 PO; -TRIAMCINOLONE ACETONIDE SUSP 40 MG/ML VIAL (J3301) As Ordered ONE; -diazePAM 5 MG TAB As Ordered ONE; -oxyCODONE 5MG TAB As Ordered ONE
== END ==
LOC: M PAIN 08:45
PROVIDERS: ATTEND Nurse Practitioner Family
DX: M46.1 Sacroiliitis, not elsewhere classified (principal); M48.07 Spinal stenosis, lumbosacral region; E11.9 Type 2 diabetes mellitus without complications; I10 Essential (primary) hypertension; Z79.82 Long term (current) use of aspirin; Z79.84 Long term (current) use of oral hypoglycemic drugs; Z79.899 Other long term (current) drug therapy; Z85.3 Personal history of malignant neoplasm of breast

== ENCOUNTER → 2019-06-16 | Outpatient (CLI) | payer MEDICARE, BC ==
--- NOTE | 2019-06-17 06:58 | ECWPNPC ---
PATIENT NAME: MATT MOORE : 1945 GENDER: FEMALE VISIT DATE: 06/16/2019 DISCHARGE DATE: 06/16/19957 VISIT LOCKED DATE TIME: PHYSICIAN: JIMBO BISHOP RESOURCE: JIMBO BISHOP REASON FOR APPOINTMENT 1. BACK HISTORY OF PRESENT ILLNESS HISTORY OF PRESENT ILLNESS: HERE FOR F/U OF CHRONIC LOW BACK PAIN WITH LEFT LEG RADICULAR SYMPTOMS.RATING PAIN VAS 4/10.PAIN IS AGGREVATED WITH WALKING OR STANDING.DESCRIBES PAIN INTERMITTENT ACHING.PAIN HAS ESCALATED RECENTLY.FINDING IT DIFFICULT TO ATTEND TO ADL'S DUE TO LBP L>R. PAIN THE PATIENT DESCRIBES THE PAIN... FALL RISK SCREENING: SCREENING :NO FALLS REPORTED IN THE LAST YEAR CURRENT MEDICATIONS TAKING ALPHAGAN P 0.1 % SOLUTION 1 DROP INTO AFFECTED EYE OPHTHALMIC ONCE DAILY TAKING BYETTA 10 MCG PEN 10 MCG/0.04ML SOLUTION PEN-INJECTOR 0.02 ML UP TO 1 HOUR BEFORE BREAKFAST AND EVENING MEAL SUBCUTANEOUS TWICE A DAY TAKING MULTIVITAMIN ADULT TABLET ORALLY DAILY TAKING VITAMIN D 1000 UNIT TABLET 1 TABLET ORALLY ONCE A DAY TAKING VITAMIN B COMPLEX TABLET ORALLY DAILY TAKING VITAMIN C & D3/OMID HIPS 500-1000-20 MG-UNIT-MG CAPSULE ORALLY DAILY TAKING COQ-10 100 MG CAPSULE 1 CAPSULE WITH A MEAL ORALLY ONCE A DAY TAKING [id number] COMPLEX TABLET ORALLY DAILY TAKING ASPIR-81 81 MG TABLET DELAYED RELEASE 1 TABLET ORALLY ONCE A DAY TAKING METFORMIN HCL ER 750 MG TABLET EXTENDED RELEASE 24 HOUR ORAL BID TAKING CRESTOR 10 MG TABLET ORAL ONCE DAILY TAKING RAMIPRIL 5 MG CAPSULE ORAL ONCE DAILY TAKING SPIRONOLACTONE 25 MG TABLET ORAL ONCE DAILY TAKING SERTRALINE HCL 100 MG TABLET ORALLY ONCE DAILY TAKING LUMIGAN 0.01 % SOLUTION 1 DROP INTO AFFECTED EYE IN THE EVENING OPHTHALMIC OU DAILY TAKING ATENOLOL 25 MG TABLET ORAL ONCE DAILY TAKING NEXIUM 40 MG CAPSULE DELAYED RELEASE 1 CAPSULE ORALLY ONCE A DAY TAKING MAY HAVE - - MEDICAL MARIJUANA DAILY TAKING MELOXICAM 15 MG TABLET 1 TABLET ORALLY ONCE A DAY NOT-TAKING FEMARA 2.5 MG TABLET 1 TABLET ORALLY ONCE A DAY MEDICATION LIST REVIEWED AND RECONCILED WITH THE PATIENT PAST MEDICAL HISTORY BREAST CANCER LEFT WITH LYMPHEDEMA DIAGNOSED 2010 DM HTN ESOPHAGEAL STRICTURE RICHARD WITH CPAP CHRONIC BACK PAIN ALLERGIES N.K.D.A. SURGICAL HISTORY D/C HYSTERECTOMY BILATERAL MASTECTOMY 2010 INFUSAPORT INSERTED 2010 INFUSAPORT REMOVED 2011 EGD-DILATATION 08/2016 CATARACT SURGERIES-BOTH EYES 09/2106 FAMILY HISTORY FATHER: 70 YRS, DIAGNOSED WITH UNSPECIFIED HEART DISEASE MOTHER: 70 YRS, UNSPECIFIED HEART DISEASE, UNSPECIFIED CEREBRAL ARTERY OCCLUSION WITH CEREBRAL INFARCTION 1 SISTER(S) - HEALTHY. 1 SON(S) , 1 DAUGHTER(S) . 4 - BROTHERS ( AORTIC ANEURYSM, STROKE, CANCER ) SON - HTN, PSORIATIC ARTHRITIS , DAUGHTER- HEALTHY. SOCIAL HISTORY GENERAL: TOBACCO USE ARE YOU A:NONSMOKER PAIN CLINIC PFS, CLERGY, PUBLIC HEALTH REFERRALS PFS REFERRAL NEEDED?NO CLERGY REFERRAL NEEDED?NO PUBLIC HEALTH REFERRAL NEEDED?NO WAS THE PROVIDER NOTIFIED OF ANY PERTINENT INFO?NO N/A HAS THE PATIENT BEEN EDUCATED REGARDING HIS/HER PLAN OF CARE?YES HAS THE PATIENT BEEN EDUCATED REGARDING PAIN, THE RISK FOR PAIN, THE IMPORTANCE OF EFFECTIVE PAIN MANAGEMENT, AND THE PAIN ASSESSMENT PROCESS?YES LATEX QUESTIONNAIRE LATEX ALLERGY : HAVE YOU EVER DEVELOPED ANY TYPE OF REACTION AFTER HANDLING LATEX PRODUCTS SUCH RUBBER GLOVES, CONDOMS, DIAPHRAGMS, BALLOONS, SOCKS, OR UNDERWEAR?NO LATEX ALLERGY : HAVE YOU EVER DEVELOPED ANY TYPE OF REACTION DURING OR AFTER DENTAL APPOINTMENT, VAGINAL/RECTAL EXAMINATION, SURGICAL PROCEDURE, OR ANY OTHER EXPOSURE?NO LATEX RISK : HAVE YOU EVER HAD ANY DIFFICULTY BREATHING OR HIVES AFTER EATING OR HANDLING ANY FRUITS, OR VEGETABLES; SUCH KIWI, BANANAS, STONE FRUITS, OR CHESTNUTSNO LATEX RISK : DO YOU HAVE A PREVIOUS PERSONAL HISTORY OF MORE THAN NINE SURGERIES, SPINA BIFIDA, OR REPEATED CATHERIZATIONS? 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 [phone] BAPTISM [id number] ANABAPTIST LANGUAGE LANGUAGES SPOKEN:NIGERIEN DOMESTIC VIOLENCE DO YOU FEEL SAFE IN YOUR ENVIRONMENT?YES ALCOHOL SCREENING DID YOU HAVE A DRINK CONTAINING ALCOHOL IN THE PAST YEAR?YES HOW OFTEN DID YOU HAVE SIX OR MORE DRINKS ON ONE OCCASION IN THE PAST YEAR?NEVER (0 POINTS) HOW MANY DRINKS DID YOU HAVE ON A TYPICAL DAY WHEN YOU WERE DRINKING IN THE PAST YEAR?1 OR 2 (0 POINTS) HOW OFTEN DID YOU HAVE A DRINK CONTAINING ALCOHOL IN THE PAST YEAR?MONTHLY OR LESS (1 POINT) POINTS1 INTERPRETATIONNEGATIVE RECREATIONAL DRUG USE DRUG USE?NO HAS MEDICAL MARIJUANA LEARNING BARRIERS / SPECIAL NEEDS CHANGE FROM LAST VISIT?NO BARRIERS TO LEARNING?NO HEARING IMPAIRED?NO VISION IMPAIRED?NO COGNITIVELY IMPAIRED?NO READINESS TO LEARN?NO LEARNING PREFERENCES?NO LEARNING CAPABILITIES PRESENT?YES EMOTIONAL BARRIERS?NO SPECIAL DEVICES?NO RESEARCH CENTER PARTNER NEEDED?NO REVIEWED WITH PATIENT 01/06/19 0959 JSREVIEWED WITH PT 02/26/19 0854 BVREVIEWED WITH PATIENT 06/16/19 0915 JS. HOSPITALIZATION/MAJOR DIAGNOSTIC PROCEDURE SURGERY RELATED REVIEW OF SYSTEMS REVIEWED BY: PROVIDER: JIMBO TINAJERO . CONSTITUTIONAL: ANY CHANGE IN YOUR MEDICAL CONDITION? NO . CHILLS NO . FEVER NO . INFECTION: DO YOU HAVE NEW INFECTIONS? NO . DO YOU HAVE HISTORY OF MRSA? NO . MUSCULOSKELETAL: ANY NEW PATTERNS OF PAIN OR NUMBNESS? NO . GASTROENTEROLOGY: ANY NEW CHANGE IN BOWEL CONTROL? NO . GENITOURINARY: ANY NEW CHANGE IN BLADDER CONTROL? NO . IS THERE A CHANCE YOU COULD BE ? NO . HEMATOLOGY/LYMPH: DO YOU TAKE ANY BLOOD THINNERS? (FOR EXAMPLE- COUMADIN, PLAVIX, AGGRENOX, PLATEL, PRADAXA, OR XARELTO) NO . WHEN WAS YOUR LAST DOSE? DATE: TIME: . NEUROLOGY: HAVE YOU FALLEN IN THE PAST 12 MONTHS? NO . ANY NEW EXTREMITY NUMBNESS OR WEAKNESS? NO . CARDIOLOGY: DO YOU HAVE A PACEMAKER OR DEFIBRILLATOR? NO . RESPIRATORY: HAVE YOU BEEN SICK IN THE PAST WEEK? NO . FEVER NO . FLU LIKE SYMPTOMS? NO . COUGH NO . INTEGUMENTARY: DO YOU HAVE ANY RASHES OR OPEN SORES? NO . ALLERGIC/IMMUNO: ARE YOU ALLERGIC TO IV DYE? NO . ANY NEW ALLERGIES? NO . PSYCHIATRIC: DO YOU HAVE THOUGHTS OF HURTING YOURSELF OR SOMEONE ELSE? NO . ARE YOU ABUSED, NEGLECTED, OR IN AN UNSAFE ENVIRONMENT? NO . ENDOCRINOLOGY: ARE YOU DIABETIC? YES . OTHER: DO YOU NEED ANY PRESCRIPTIONS? NO . IF YES, PLEASE LIST: ____ . ANY NEW PROBLEMS WITH YOUR MEDICATIONS? NO . WHEN DID YOU LAST EAT? ____ . WHEN DID YOU LAST DRINK? ____ . WHAT DID YOU LAST DRINK? ____ . NAME OF PERSON DRIVING YOU HOME? ____ . DO YOU HAVE ANY OTHER QUESTIONS OR CONCERNS NO . VITAL SIGNS WT 302.8 LBS, HT 65 IN, BMI 50.38 INDEX, BP 146/88 MM HG, HR 90 /MIN, RR 18 /MIN, TEMP 96.0 F, OXYGEN SAT % 97%, SAFE IN ENV? (Y/N) YES, NA INITIALS PA 08:56, REVIEWED BY: KATTY. EXAMINATION GENERAL EXAMINATION: GENERAL ALERT,APPEARS UNCOMFORTABLE,MORBIDLY OBESE. PSYCH AFFECT NORMAL . LUNGS: LUNG SOUNDS ARE CLEAR . HEART: HEART RATE REGULAR . MUSCULOSKELETAL: MST 5/5 BILAT. LOWER EXTREMITIES . LUMBAR SACRAL SPINETENDERNESS OVER BILAT. SIJ L>R. DIAGNOSTIC TESTS REVIEWED CT L/S [id number] . ASSESSMENTS SACROILIITIS - M46.1 (PRIMARY) LUMBOSACRAL SPINAL STENOSIS - M48.07 TREATMENT SACROILIITIS CLINICAL NOTES: BILAT SIJ. PREVENTIVE MEDICINE PAIN CLINIC TEACHING: PROCEDURE TEACHING REVIEWED INFORMATION ON SACROILIAC JOINT INJECTION PROCEDURE WITH PATIENT. ALSO REVIEWED PRE-PROCEDURE INSTRUCTIONS. PATIENT VERBALIZED AN UNDERSTANDING. SHAQUILLE SANTOYO 06/16/2019 11:33:00 AM > . PROCEDURE CODES FA211 ESTABILISHED PATIENT [facility] F[facility] CHARGE DISPOSITION & COMMUNICATION FOLLOW UP POST (REASON: BILAT SIJ) ELECTRONICALLY SIGNED BY LIOR ALTAMIRANO ON 06/16/2019 AT 02:06 PM EST DISCLAIMER : THIS IS A VISIT SUMMARY EXTRACTED FROM THE [employer] CHART. IT IS NOT A COPY OF THE [employer] PROGRESS NOTE. JACINDA
== END ==
LOC: M PAIN 08:45
PROVIDERS: ATTEND Nurse Practitioner Family
DX: M46.1 Sacroiliitis, not elsewhere classified (principal); M48.07 Spinal stenosis, lumbosacral region

== ENCOUNTER → 2019-06-20 | Outpatient (CLI) | payer MEDICARE, BC ==
--- NOTE | 2019-06-27 13:58 | DEXA ---
AP SPINE L1 - L4 1.058 -1.1 0.6 LT FEMUR TOTAL 0.792 -1.7 0.0 LT NECK 0.792 -1.8 0.1 RT FEMUR TOTAL 0.852 -1.2 0.5 RT NECK 0.814 -1.6 0.3 TOTAL BODY TOTAL OTHER COMMENTS: There is low bone density of the spine and hips. The increased density of the spine does represent a significant change. The decreased density of the left hip does represent a significant change. The decreased density of the right hip does represent a significant change. The density of the spine has increased 10.7% since the initial exam on 06/23/1999. The spine density has increased 8.3% since the most recent exam on 06/24/2018. The density of the left hip has decreased 11.5% since the initial exam on 11/02/2011. The density of the left hip has decreased 5.1% since the most recent exam on 06/24/2018. The density of the right hip has decreased 9.7% since the initial exam on 10/23/2011. The density of the right hip has decreased 2.4% since the most recent exam on 06/24/2018. FOLLOW-UP: Recommendation for the next bone density exam: 2 years. JACINDA
== END ==
LOC: M WHC 09:47
PROVIDERS: ATTEND Internal Medicine Medical Oncology
DX: Z85.3 Personal history of malignant neoplasm of breast (principal); Z79.811 Long term (current) use of aromatase inhibitors

== ENCOUNTER → 2019-08-04 | Outpatient (CLI) | payer MEDICARE, BC ==
[~2019-08-04] MED LIST changes: +BUPIVACAINE HCL 0.25% 30 ML VIAL As Ordered ONE; +ISOVUE-M 300 61% 15ML VIAL (Q9967) As Ordered ONE; +LIDOCAINE 1% SDV INJ 30 ML VIAL As Ordered ONE; +TRIAMCINOLONE ACETONIDE SUSP 40 MG/ML VIAL (J3301) As Ordered ONE; +diazePAM 5 MG TAB As Ordered ONE; +oxyCODONE 5MG TAB As Ordered ONE
--- NOTE | 2019-08-04 12:44 | REP ---
SI JOINT SERIES: Four views. HISTORY: Bilateral SI joint injection for pain. 40 seconds of fluoroscopy time is reported. FINDINGS: A sequence of four last image hold fluoroscopically obtained spot radiographs of the SI joints document various needle positions and contrast injections. Electronically Signed by Celestine Weeks MD 08/04/2019 07:47 P
--- NOTE | 2019-08-16 06:58 | ECWPNPC ---
PATIENT NAME: MATT MOORE : 1945 GENDER: FEMALE VISIT DATE: 08/04/2019 DISCHARGE DATE: 08/04/19 1057 VISIT LOCKED DATE TIME: PHYSICIAN: JALEN WONG MD RESOURCE: JALEN WONG MD REASON FOR APPOINTMENT 1. TIAGO BALTAZAR HISTORY OF PRESENT ILLNESS HISTORY OF PRESENT ILLNESS: PAIN THE PATIENT DESCRIBES THE PAIN... FALL RISK SCREENING: SCREENING :NO FALLS REPORTED IN THE LAST YEAR CURRENT MEDICATIONS TAKING ALPHAGAN P 0.1 % SOLUTION 1 DROP INTO AFFECTED EYE OPHTHALMIC ONCE DAILY, NOTES: 08/04 599 TAKING BYETTA 10 MCG PEN 10 MCG/0.04ML SOLUTION PEN-INJECTOR 0.02 ML UP TO 1 HOUR BEFORE BREAKFAST AND EVENING MEAL SUBCUTANEOUS TWICE A DAY, NOTES: 08/03 599 TAKING MULTIVITAMIN ADULT TABLET ORALLY DAILY, NOTES: 08/03 599 TAKING VITAMIN D 1000 UNIT TABLET 1 TABLET ORALLY ONCE A DAY, NOTES: 08/04 599 TAKING VITAMIN B COMPLEX TABLET ORALLY DAILY, NOTES: 08/03 599 TAKING VITAMIN C & D3/OMID HIPS 500-1000-20 MG-UNIT-MG CAPSULE ORALLY DAILY, NOTES: 08/03 599 TAKING COQ-10 100 MG CAPSULE 1 CAPSULE WITH A MEAL ORALLY ONCE A DAY, NOTES: 08/03 599 TAKING [id number] COMPLEX TABLET ORALLY DAILY, NOTES: 08/03 599 TAKING ASPIR-81 81 MG TABLET DELAYED RELEASE 1 TABLET ORALLY ONCE A DAY, NOTES: 08/03 1799 TAKING METFORMIN HCL ER 750 MG TABLET EXTENDED RELEASE 24 HOUR ORAL BID, NOTES: 08/03 599 TAKING CRESTOR 10 MG TABLET ORAL ONCE DAILY, NOTES: 08/03 1799 TAKING RAMIPRIL 5 MG CAPSULE ORAL ONCE DAILY, NOTES: 08/04 599 TAKING SPIRONOLACTONE 25 MG TABLET ORAL ONCE DAILY, NOTES: 08/04 599 TAKING SERTRALINE HCL 100 MG TABLET ORALLY ONCE DAILY, NOTES: 08/04 599 TAKING LUMIGAN 0.01 % SOLUTION 1 DROP INTO AFFECTED EYE IN THE EVENING OPHTHALMIC OU DAILY, NOTES: 08/03 1999 TAKING ATENOLOL 25 MG TABLET ORAL ONCE DAILY, NOTES: 08/04 599 TAKING NEXIUM 40 MG CAPSULE DELAYED RELEASE 1 CAPSULE ORALLY ONCE A DAY, NOTES: 08/04 599 TAKING MAY HAVE - - MEDICAL MARIJUANA DAILY, NOTES: 1/19 1800 TAKING MELOXICAM 15 MG TABLET 1 TABLET ORALLY ONCE A DAY, NOTES: 08/04 0600 NOT-TAKING FEMARA 2.5 MG TABLET 1 TABLET ORALLY ONCE A DAY MEDICATION LIST REVIEWED AND RECONCILED WITH THE PATIENT PAST MEDICAL HISTORY BREAST CANCER LEFT WITH LYMPHEDEMA DIAGNOSED 2010 DM HTN ESOPHAGEAL STRICTURE RICHARD WITH CPAP CHRONIC BACK PAIN ALLERGIES N.K.D.A. SURGICAL HISTORY D/C HYSTERECTOMY BILATERAL MASTECTOMY 2010 INFUSAPORT INSERTED 2010 INFUSAPORT REMOVED 2011 EGD-DILATATION 08/2016 CATARACT SURGERIES-BOTH EYES 09/2106 FAMILY HISTORY FATHER: 70 YRS, DIAGNOSED WITH UNSPECIFIED HEART DISEASE MOTHER: 70 YRS, UNSPECIFIED HEART DISEASE, UNSPECIFIED CEREBRAL ARTERY OCCLUSION WITH CEREBRAL INFARCTION 1 SISTER(S) - HEALTHY. 1 SON(S) , 1 DAUGHTER(S) . 4 - BROTHERS ( AORTIC ANEURYSM, STROKE, CANCER ) SON - HTN, PSORIATIC ARTHRITIS , DAUGHTER- HEALTHY. SOCIAL HISTORY GENERAL: TOBACCO USE ARE YOU A:NONSMOKER PAIN CLINIC PFS, CLERGY, PUBLIC HEALTH REFERRALS PFS REFERRAL NEEDED?NO CLERGY REFERRAL NEEDED?NO PUBLIC HEALTH REFERRAL NEEDED?NO WAS THE PROVIDER NOTIFIED OF ANY PERTINENT INFO? N/A HAS THE PATIENT BEEN EDUCATED REGARDING HIS/HER PLAN OF CARE?YES HAS THE PATIENT BEEN EDUCATED REGARDING PAIN, THE RISK FOR PAIN, THE IMPORTANCE OF EFFECTIVE PAIN MANAGEMENT, AND THE PAIN ASSESSMENT PROCESS?YES LATEX QUESTIONNAIRE LATEX ALLERGY : HAVE YOU EVER DEVELOPED ANY TYPE OF REACTION AFTER HANDLING LATEX PRODUCTS SUCH RUBBER GLOVES, CONDOMS, DIAPHRAGMS, BALLOONS, SOCKS, OR UNDERWEAR?NO LATEX ALLERGY : HAVE YOU EVER DEVELOPED ANY TYPE OF REACTION DURING OR AFTER DENTAL APPOINTMENT, VAGINAL/RECTAL EXAMINATION, SURGICAL PROCEDURE, OR ANY OTHER EXPOSURE?NO LATEX RISK : HAVE YOU EVER HAD ANY DIFFICULTY BREATHING OR HIVES AFTER EATING OR HANDLING ANY FRUITS, OR VEGETABLES; SUCH KIWI, BANANAS, STONE FRUITS, OR CHESTNUTSNO LATEX RISK : DO YOU HAVE A PREVIOUS PERSONAL HISTORY OF MORE THAN NINE SURGERIES, SPINA BIFIDA, OR REPEATED CATHERIZATIONS? NO LATEX RISK : ARE YOU FREQUENTLY EXPOSED TO LATEX PRODUCTS IN YOUR OCCUPATION?NO DATE ASKED : 08/04/2019 CAFFEINE CAFFEINE USE?NO ADVANCE DIRECTIVE ADVANCE DIRECTIVE DISCUSSED WITH PATIENT:YES STATES SHE HAS HCP-SON JOSE R MOORE II [phone] MOSQUE [id number] LATTER DAY LANGUAGE LANGUAGES SPOKEN:BENGALI DOMESTIC VIOLENCE DO YOU FEEL SAFE IN YOUR ENVIRONMENT?YES ALCOHOL SCREENING DID YOU HAVE A DRINK CONTAINING ALCOHOL IN THE PAST YEAR?YES HOW OFTEN DID YOU HAVE SIX OR MORE DRINKS ON ONE OCCASION IN THE PAST YEAR?NEVER (0 POINTS) HOW MANY DRINKS DID YOU HAVE ON A TYPICAL DAY WHEN YOU WERE DRINKING IN THE PAST YEAR?1 OR 2 (0 POINTS) HOW OFTEN DID YOU HAVE A DRINK CONTAINING ALCOHOL IN THE PAST YEAR?MONTHLY OR LESS (1 POINT) POINTS1 INTERPRETATIONNEGATIVE RECREATIONAL DRUG USE DRUG USE?NO HAS MEDICAL MARIJUANA LEARNING BARRIERS / SPECIAL NEEDS CHANGE FROM LAST VISIT?NO BARRIERS TO LEARNING?NO HEARING IMPAIRED?NO VISION IMPAIRED?NO COGNITIVELY IMPAIRED?NO READINESS TO LEARN?NO LEARNING PREFERENCES?NO LEARNING CAPABILITIES PRESENT?YES EMOTIONAL BARRIERS?NO SPECIAL DEVICES?NO WAGE AND SALARY ADMINISTRATOR NEEDED?NO REVIEWED WITH PATIENT 01/06/19 0947 JSREVIEWED WITH PT 02/26/19 0854 BVREVIEWED WITH PATIENT 06/16/19 0915 JSPRE PROCEDURE PHONE INTERVIEW 08/01/2019 LAS08/04/2019 0858 REVIEWED WITH PT. AD. HOSPITALIZATION/MAJOR DIAGNOSTIC PROCEDURE SURGERY RELATED REVIEW OF SYSTEMS REVIEWED BY: PROVIDER: . CONSTITUTIONAL: ANY CHANGE IN YOUR MEDICAL CONDITION? NO . CHILLS NO . FEVER NO . INFECTION: DO YOU HAVE NEW INFECTIONS? NO . DO YOU HAVE HISTORY OF MRSA? NO . MUSCULOSKELETAL: ANY NEW PATTERNS OF PAIN OR NUMBNESS? NO CANNOT STAND FOR TOO LONG AND CANNOT WALK TOO FAR. STANDING UP IS HARD DUE TO PAIN IN LEGS . GASTROENTEROLOGY: ANY NEW CHANGE IN BOWEL CONTROL? NO . GENITOURINARY: ANY NEW CHANGE IN BLADDER CONTROL? NO . IS THERE A CHANCE YOU COULD BE ? NO . HEMATOLOGY/LYMPH: DO YOU TAKE ANY BLOOD THINNERS? (FOR EXAMPLE- COUMADIN, PLAVIX, AGGRENOX, PLATEL, PRADAXA, OR XARELTO) NO . WHEN WAS YOUR LAST DOSE? DATE: TIME: . NEUROLOGY: HAVE YOU FALLEN IN THE PAST 12 MONTHS? NO . ANY NEW EXTREMITY NUMBNESS OR WEAKNESS? NO . CARDIOLOGY: DO YOU HAVE A PACEMAKER OR DEFIBRILLATOR? NO . RESPIRATORY: HAVE YOU BEEN SICK IN THE PAST WEEK? NO . FEVER NO . FLU LIKE SYMPTOMS? NO . COUGH NO . INTEGUMENTARY: DO YOU HAVE ANY RASHES OR OPEN SORES? NO . ALLERGIC/IMMUNO: ARE YOU ALLERGIC TO IV DYE? NO . ANY NEW ALLERGIES? NO . PSYCHIATRIC: DO YOU HAVE THOUGHTS OF HURTING YOURSELF OR SOMEONE ELSE? NO . ARE YOU ABUSED, NEGLECTED, OR IN AN UNSAFE ENVIRONMENT? NO . ENDOCRINOLOGY: ARE YOU DIABETIC? YES FSBS AT 0600 WAS 129 . OTHER: DO YOU NEED ANY PRESCRIPTIONS? NO . IF YES, PLEASE LIST: ____ . ANY NEW PROBLEMS WITH YOUR MEDICATIONS? NO . WHEN DID YOU LAST EAT? 08/03 1800 . WHEN DID YOU LAST DRINK? 08/04 0600 . WHAT DID YOU LAST DRINK? APPLE JUICE . NAME OF PERSON DRIVING YOU HOME? ED MOORE- . DO YOU HAVE ANY OTHER QUESTIONS OR CONCERNS NO . VITAL SIGNS WT 299 LBS, HT 65 IN, BMI 49.75 INDEX, BP 183/84 MM HG, REPEAT BP 142/80 MM HG, HR 74 /MIN, RR 16 /MIN, TEMP 97.7 F, OXYGEN SAT % 99, SAFE IN ENV? (Y/N) Y, REVIEWED BY: STEPHENIE [id number]. ASSESSMENTS SACROILIITIS - M46.1 (PRIMARY) TREATMENT SACROILIITIS [facility] FLUORO GUIDANCE (PAIN)[id number] PROCEDURES PN SI PRE PROCEDURE DIAGNOSIS SACROILIITIS, SACROILIAC JOINT DYSFUNCTION POST PROCEDURE DIAGNOSIS SACROILIITIS, SACROILIAC JOINT DYSFUNCTION PROCEDURE BILATERAL SACROILIAC JOINT BLOCK SURGEON DR. JALEN WONG BAKERY TECHNICIAN NONE ANESTHESIA LOCAL PRE PROCEDURE NOTE PATIENT WITH HISTORY OF CHRONIC LOW BACK PAIN. I EVALUATED THE PATIENT AND REVIEWED THE CHART. I WENT OVER THE RISKS, ALTERNATIVES AND BENEFITS ASSOCIATED WITH THIS PROCEDURE. THE PATIENT WOULD LIKE TO PROCEED AND GAVE CONSENT TO PERFORM THE PROCEDURE. THE PATIENT DENIES UNEXPLAINABLE WEIGHT LOSS, FEVER, CHILLS, OR NEW CHANGES IN URINARY OR BOWEL CONTROL DESCRIPTION OF PROCEDURE THE PATIENT WAS BROUGHT TO THE PROCEDURE ROOM AND PLACED IN THE PRONE POSITION. THE LUMBOSACRAL AREA WAS CLEANED WITH CHLORAPREP SOLUTION AND DRAPED ASEPTICALLY. THE PROCEDURE WAS DONE UNDER STERILE CONDITIONS. I CHECKED LATERALITY AND THE LEVEL WHERE THE PROCEDURE WAS GOING TO BE PERFORMED WITH THE PATIENT AND THE SUPPORTING STAFF AT THE MOMENT OF THE TIMEOUT IN THE PROCEDURE ROOM. UNDER FLUOROSCOPIC GUIDANCE, TARGET POINT WAS SELECTED AT THE LOWER BORDER OF THE RIGHT AND LEFT SACROILIAC JOINTS. TARGET POINT WAS SELECTED AFTER MEDIAL ROTATION AND TILT OF THE MAGNIFIER OF THE C-ARM. LIDOCAINE WAS USED TO NUMB THE SKIN AND SUBCUTANEOUS TISSUE BELOW IT. A SPINAL NEEDLE, 22-GAUGE, WAS ADVANCED UNDER FLUOROSCOPIC GUIDANCE AND FOLLOWING PATIENT FEEDBACK UNTIL THE TARGET AREA WAS TOUCHED. THE POSITION OF THE NEEDLE WAS VERIFIED WITH AP AND LATERAL VIEWS. AFTER PROPER POSITION OF THE NEEDLE WAS ACHIEVED, ISOVUE M DYE 30%, 0.25 ML, WAS INJECTED SHOWING SPREAD OF THE DYE. THEN, A SOLUTION OF 30 MG OF KENALOG WAS INJECTED IN RIGHT AND LEFT JOINTS WITH 3 ML OF BUPIVACAINE 0.125%. THERE WAS NO EVIDENCE OF BLOOD, PARESTHESIA OR CEREBROSPINAL FLUID DURING THE PROCEDURE. THE PATIENT WAS SENT TO THE RECOVERY ROOM. THE PATIENT WAS MOVING THE EXTREMITIES AND DOING WELL. THERE WAS NO COMPLICATION DURING THE PROCEDURE. FLUOROSCOPY TIME WAS 40 SECONDS POST PROCEDURE NOTE THE PATIENT WILL BE SEEN IN A FOLLOWUP IN THE NEXT FEW WEEKS. I AM LOOKING FOR LONG-LASTING PAIN RELIEF WITH THIS PROCEDURE. WE WILL CONSIDER A THERAPEUTIC FACET BLOCK FOR BACK PAIN VERSUS A LUMBAR EPIDURAL STEROID INJECTION FOR BACK AND LEG PAIN IN THE FUTURE. INSTRUCTIONS WERE GIVEN, QUESTIONS WERE ANSWERED, AND THE PATIENT EXPRESSED UNDERSTANDING AND AGREED WITH THE PLAN. I, ISA CHASE, DOCUMENTED THE ABOVE INFORMATION ACTING A SCRIBE FOR DR. WONG. I HAVE REVIEWED THE ABOVE DOCUMENT, WRITTEN BY YESENIA NDIAYE, AND I VERIFY THAT IT IS ACCURATE PROCEDURE CODES 09139 INJECT SACROILIAC JOINT, MODIFIERS: [id number] RADXPS IN END [id number] PXD DISPOSITION & COMMUNICATION FOLLOW UP 3 WEEKS ELECTRONICALLY SIGNED BY JALEN WONG MD, MD ON 08/15/2019 AT 05:16 PM EST DISCLAIMER : THIS IS A VISIT SUMMARY EXTRACTED FROM THE [employer] CHART. IT IS NOT A COPY OF THE [employer] PROGRESS NOTE. MTDAr
== END ==
LOC: M PAIN 08:45
PROVIDERS: ATTEND Anesthesiology
DX: M46.1 Sacroiliitis, not elsewhere classified (principal); M54.5 Low back pain; E11.9 Type 2 diabetes mellitus without complications; I10 Essential (primary) hypertension; Z79.82 Long term (current) use of aspirin; Z79.84 Long term (current) use of oral hypoglycemic drugs; Z79.899 Other long term (current) drug therapy
CPT/HCPCS: G0260; J3301; Q9967

== ENCOUNTER → 2019-08-21 | Outpatient (CLI) | payer MEDICARE, BC ==
[~2019-08-21] MED LIST changes: -BUPIVACAINE HCL 0.25% 30 ML VIAL As Ordered ONE; -ISOVUE-M 300 61% 15ML VIAL (Q9967) As Ordered ONE; -LIDOCAINE 1% SDV INJ 30 ML VIAL As Ordered ONE; -TRIAMCINOLONE ACETONIDE SUSP 40 MG/ML VIAL (J3301) As Ordered ONE; -diazePAM 5 MG TAB As Ordered ONE; -oxyCODONE 5MG TAB As Ordered ONE
--- NOTE | 2019-09-09 05:20 | ECWPNPC ---
PATIENT NAME: MATT MOORE : 1945 GENDER: FEMALE VISIT DATE: 08/21/2019 DISCHARGE DATE: 08/21/19926 VISIT LOCKED DATE TIME: PHYSICIAN: JIMBO BISHOP RESOURCE: JIMBO BISHOP REASON FOR APPOINTMENT 1. POST SIJ HISTORY OF PRESENT ILLNESS HISTORY OF PRESENT ILLNESS: HERE FOR POST PROCEDURE FOLLOW-UP. HAD BILATERAL SIJ ON 08/04/2019. REPORTING MARKED REDUCTION IN LOW BACK PAIN, ESPECIALLY WHEN GOING FROM SITTING TO STANDING POSITION. CONTINUES TO SUFFER WITH WEAKNESS IN PAIN IN HER EXTREMITIES AND LOW BACK WHEN SHE WALKS GREATER THAN 500 FEET OR WITH PROLONGED STANDING. PAIN IS RELIEVED WITH BENDING FORWARD. RATING PAIN LEVEL A 1/10 VAS. DESCRIBES PAIN PRESSURE ACROSS THE LOW BACK WITH RADIATION INTO BOTH LEGS, ONLY WITH SPECIFIC ACTIVITIES I.E. WALKING. PAIN IS RELIEVED AT REST. PAIN THE PATIENT DESCRIBES THE PAIN... FALL RISK SCREENING: SCREENING :NO FALLS REPORTED IN THE LAST YEAR CURRENT MEDICATIONS TAKING ALPHAGAN P 0.1 % SOLUTION 1 DROP INTO AFFECTED EYE OPHTHALMIC ONCE DAILY TAKING BYETTA 10 MCG PEN 10 MCG/0.04ML SOLUTION PEN-INJECTOR 0.02 ML UP TO 1 HOUR BEFORE BREAKFAST AND EVENING MEAL SUBCUTANEOUS TWICE A DAY TAKING MULTIVITAMIN ADULT TABLET ORALLY DAILY TAKING VITAMIN D 1000 UNIT TABLET 1 TABLET ORALLY ONCE A DAY TAKING VITAMIN B COMPLEX TABLET ORALLY DAILY TAKING VITAMIN C & D3/OMID HIPS 500-1000-20 MG-UNIT-MG CAPSULE ORALLY DAILY TAKING COQ-10 100 MG CAPSULE 1 CAPSULE WITH A MEAL ORALLY ONCE A DAY TAKING [id number] COMPLEX TABLET ORALLY DAILY TAKING ASPIR-81 81 MG TABLET DELAYED RELEASE 1 TABLET ORALLY ONCE A DAY TAKING METFORMIN HCL ER 750 MG TABLET EXTENDED RELEASE 24 HOUR ORAL BID TAKING CRESTOR 10 MG TABLET ORAL ONCE DAILY TAKING RAMIPRIL 5 MG CAPSULE ORAL ONCE DAILY TAKING SPIRONOLACTONE 25 MG TABLET ORAL ONCE DAILY TAKING SERTRALINE HCL 100 MG TABLET ORALLY ONCE DAILY TAKING LUMIGAN 0.01 % SOLUTION 1 DROP INTO AFFECTED EYE IN THE EVENING OPHTHALMIC OU DAILY TAKING ATENOLOL 25 MG TABLET ORAL ONCE DAILY TAKING NEXIUM 40 MG CAPSULE DELAYED RELEASE 1 CAPSULE ORALLY ONCE A DAY TAKING MAY HAVE - - MEDICAL MARIJUANA DAILY TAKING MELOXICAM 15 MG TABLET 1 TABLET ORALLY ONCE A DAY NOT-TAKING FEMARA 2.5 MG TABLET 1 TABLET ORALLY ONCE A DAY MEDICATION LIST REVIEWED AND RECONCILED WITH THE PATIENT PAST MEDICAL HISTORY BREAST CANCER LEFT WITH LYMPHEDEMA DIAGNOSED 2010 DM HTN ESOPHAGEAL STRICTURE RICHARD WITH CPAP CHRONIC BACK PAIN ALLERGIES N.K.D.A. SURGICAL HISTORY D/C HYSTERECTOMY BILATERAL MASTECTOMY 2010 INFUSAPORT INSERTED 2010 INFUSAPORT REMOVED 2011 EGD-DILATATION 08/2016 CATARACT SURGERIES-BOTH EYES 09/2106 FAMILY HISTORY FATHER: 70 YRS, DIAGNOSED WITH UNSPECIFIED HEART DISEASE MOTHER: 70 YRS, UNSPECIFIED HEART DISEASE, UNSPECIFIED CEREBRAL ARTERY OCCLUSION WITH CEREBRAL INFARCTION 1 SISTER(S) - HEALTHY. 1 SON(S) , 1 DAUGHTER(S) . 4 - BROTHERS ( AORTIC ANEURYSM, STROKE, CANCER ) SON - HTN, PSORIATIC ARTHRITIS , DAUGHTER- HEALTHY. SOCIAL HISTORY GENERAL: TOBACCO USE ARE YOU A:NONSMOKER PAIN CLINIC PFS, CLERGY, PUBLIC HEALTH REFERRALS PFS REFERRAL NEEDED?NO CLERGY REFERRAL NEEDED?NO PUBLIC HEALTH REFERRAL NEEDED?NO WAS THE PROVIDER NOTIFIED OF ANY PERTINENT INFO? N/A HAS THE PATIENT BEEN EDUCATED REGARDING HIS/HER PLAN OF CARE?YES HAS THE PATIENT BEEN EDUCATED REGARDING PAIN, THE RISK FOR PAIN, THE IMPORTANCE OF EFFECTIVE PAIN MANAGEMENT, AND THE PAIN ASSESSMENT PROCESS?YES LATEX QUESTIONNAIRE LATEX ALLERGY : HAVE YOU EVER DEVELOPED ANY TYPE OF REACTION AFTER HANDLING LATEX PRODUCTS SUCH RUBBER GLOVES, CONDOMS, DIAPHRAGMS, BALLOONS, SOCKS, OR UNDERWEAR?NO LATEX ALLERGY : HAVE YOU EVER DEVELOPED ANY TYPE OF REACTION DURING OR AFTER DENTAL APPOINTMENT, VAGINAL/RECTAL EXAMINATION, SURGICAL PROCEDURE, OR ANY OTHER EXPOSURE?NO DATE ASKED : 08/04/2019 LATEX RISK : HAVE YOU EVER HAD ANY DIFFICULTY BREATHING OR HIVES AFTER EATING OR HANDLING ANY FRUITS, OR VEGETABLES; SUCH KIWI, BANANAS, STONE FRUITS, OR CHESTNUTSNO LATEX RISK : DO YOU HAVE A PREVIOUS PERSONAL HISTORY OF MORE THAN NINE SURGERIES, SPINA BIFIDA, OR REPEATED CATHERIZATIONS? 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 [phone] ALEVISM [id number] [employer] LANGUAGE LANGUAGES SPOKEN:ESTONIAN DOMESTIC VIOLENCE DO YOU FEEL SAFE IN YOUR ENVIRONMENT?YES ALCOHOL SCREENING DID YOU HAVE A DRINK CONTAINING ALCOHOL IN THE PAST YEAR?YES HOW OFTEN DID YOU HAVE SIX OR MORE DRINKS ON ONE OCCASION IN THE PAST YEAR?NEVER (0 POINTS) HOW MANY DRINKS DID YOU HAVE ON A TYPICAL DAY WHEN YOU WERE DRINKING IN THE PAST YEAR?1 OR 2 (0 POINTS) HOW OFTEN DID YOU HAVE A DRINK CONTAINING ALCOHOL IN THE PAST YEAR?MONTHLY OR LESS (1 POINT) POINTS1 INTERPRETATIONNEGATIVE RECREATIONAL DRUG USE DRUG USE?NO HAS MEDICAL MARIJUANA LEARNING BARRIERS / SPECIAL NEEDS CHANGE FROM LAST VISIT?NO BARRIERS TO LEARNING?NO HEARING IMPAIRED?NO VISION IMPAIRED?NO COGNITIVELY IMPAIRED?NO READINESS TO LEARN?NO LEARNING PREFERENCES?NO LEARNING CAPABILITIES PRESENT?YES EMOTIONAL BARRIERS?NO SPECIAL DEVICES?NO LOOSE HAND PACKER NEEDED?NO REVIEWED WITH PATIENT 01/06/19 0947 JSREVIEWED WITH PT 02/26/19 0854 BVREVIEWED WITH PATIENT 06/16/19 0915 JSPRE PROCEDURE PHONE INTERVIEW 08/01/2019 LAS08/04/2019 0858 REVIEWED WITH PT. AD. HOSPITALIZATION/MAJOR DIAGNOSTIC PROCEDURE SURGERY RELATED REVIEW OF SYSTEMS REVIEWED BY: PROVIDER: JIMBO TINAJERO . CONSTITUTIONAL: ANY CHANGE IN YOUR MEDICAL CONDITION? NO . CHILLS NO . FEVER NO . INFECTION: DO YOU HAVE NEW INFECTIONS? NO . DO YOU HAVE HISTORY OF MRSA? NO . MUSCULOSKELETAL: ANY NEW PATTERNS OF PAIN OR NUMBNESS? NO . GASTROENTEROLOGY: ANY NEW CHANGE IN BOWEL CONTROL? NO . GENITOURINARY: ANY NEW CHANGE IN BLADDER CONTROL? NO . IS THERE A CHANCE YOU COULD BE ? NO . HEMATOLOGY/LYMPH: DO YOU TAKE ANY BLOOD THINNERS? (FOR EXAMPLE- COUMADIN, PLAVIX, AGGRENOX, PLATEL, PRADAXA, OR XARELTO) NO . WHEN WAS YOUR LAST DOSE? DATE: TIME: . NEUROLOGY: HAVE YOU FALLEN IN THE PAST 12 MONTHS? NO . ANY NEW EXTREMITY NUMBNESS OR WEAKNESS? NO . CARDIOLOGY: DO YOU HAVE A PACEMAKER OR DEFIBRILLATOR? NO . RESPIRATORY: HAVE YOU BEEN SICK IN THE PAST WEEK? NO . FEVER NO . FLU LIKE SYMPTOMS? NO . COUGH NO . INTEGUMENTARY: DO YOU HAVE ANY RASHES OR OPEN SORES? NO . ALLERGIC/IMMUNO: ARE YOU ALLERGIC TO IV DYE? NO . ANY NEW ALLERGIES? NO . PSYCHIATRIC: DO YOU HAVE THOUGHTS OF HURTING YOURSELF OR SOMEONE ELSE? NO . ARE YOU ABUSED, NEGLECTED, OR IN AN UNSAFE ENVIRONMENT? NO . ENDOCRINOLOGY: ARE YOU DIABETIC? YES . OTHER: DO YOU NEED ANY PRESCRIPTIONS? NO . IF YES, PLEASE LIST: ____ . ANY NEW PROBLEMS WITH YOUR MEDICATIONS? NO . WHEN DID YOU LAST EAT? ____ . WHEN DID YOU LAST DRINK? ____ . WHAT DID YOU LAST DRINK? ____ . NAME OF PERSON DRIVING YOU HOME? ____ . DO YOU HAVE ANY OTHER QUESTIONS OR CONCERNS NO . VITAL SIGNS WT 300 LBS, HT 65 IN, BMI 49.92 INDEX, BP 138/81 MM HG, HR 95 /MIN, RR 16 /MIN, TEMP 97.8 F, OXYGEN SAT % 100, REVIEWED BY: NICHOLE 0842. EXAMINATION GENERAL EXAMINATION: GENERALAWAKE,ALERT ,PLEASANT . PSYCHAFFECT NORMAL . LUNGS:LUNG ISAACS ARE CLEAR TO AUSCULTATION BILATERALLY. GOOD MOVEMENT OF AIR . HEART:S1, S2 IN A REGULAR RATE AND RHYTHM. NO SIGNIFICANT MURMURS, RUBS OR GALLOPS NOTED . 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 WE'LL HAVE HER RETURN TO CLINIC TO TALK WITH DR. WONG WHERE HE CAN REVIEW MRI OF THE LS-SPINE AND DISCUSS POTENTIAL FOR PROCEEDING WITH MILD PROCEDURE. PROCEDURE CODES FA211 ESTABILISHED PATIENT [facility] CHARGE DISPOSITION & COMMUNICATION FOLLOW UP IBRAHIMA Keita TALK ABOUT MILD PROCEDURE (REASON: SPINAL STENOSIS W NEUROGENIC CLAUDICATION) ELECTRONICALLY SIGNED BY LIOR ALTAMIRANO ON 09/08/2019 AT 03:58 PM EST DISCLAIMER : THIS IS A VISIT SUMMARY EXTRACTED FROM THE [employer] CHART. IT IS NOT A COPY OF THE [employer] PROGRESS NOTE. JACINDA
== END ==
LOC: M PAIN 08:45
PROVIDERS: ATTEND Nurse Practitioner Family
DX: M48.062 Spinal stenosis, lumbar region with neurogenic claudication (principal); M46.1 Sacroiliitis, not elsewhere classified; E11.9 Type 2 diabetes mellitus without complications; I10 Essential (primary) hypertension; Z79.82 Long term (current) use of aspirin; Z79.84 Long term (current) use of oral hypoglycemic drugs; Z79.899 Other long term (current) drug therapy

== ENCOUNTER → 2019-09-19 | Outpatient (CLI) | payer MEDICARE, BC ==
--- NOTE | 2019-09-25 04:57 | ECWPNPC ---
PATIENT NAME: MATT MOORE : 1945 GENDER: FEMALE VISIT DATE: 09/19/2019 DISCHARGE DATE: 09/19/19945 VISIT LOCKED DATE TIME: PHYSICIAN: JALEN WONG MD RESOURCE: JALEN WONG MD REASON FOR APPOINTMENT 1. SPINAL STENOSIS W NEUROGENIC CLAUDICATION HISTORY OF PRESENT ILLNESS HISTORY OF PRESENT ILLNESS: PAIN THE PATIENT DESCRIBES THE PAIN... 73 YEAR OLD FEMALE PATIENT WITH A HISTORY OF CHRONIC LOW BACK AND LEG PAIN. THE PATIENT DESCRIBES THE PAIN ACHING, SORE, AND INTERMITTENT WITH A PAIN SCORE OF 3-8/10 DEPENDING ON PHYSICAL ACTIVITY. THE PATIENT STATES HER PAIN INCREASES WITH ACTIVITIES AND IS AFFECTING HER ABILITY TO PERFORM HER DAILY ACTIVITIES SUCH STANDING, WALKING, AND CLEANING HER HOUSE. THE PATIENT SAYS WHEN SHE STANDS UP HER PAIN INCREASES ACROSS HER BACK AND DOWN HER LEGS. PATIENT DENIES UNEXPLAINABLE WEIGHT LOSS, FEVER, CHILLS, NEW CHANGES ON HER URINARY OR BOWEL CONTROL. FALL RISK SCREENING: SCREENING :NO FALLS REPORTED IN THE LAST YEAR CURRENT MEDICATIONS TAKING ALPHAGAN P 0.1 % SOLUTION 1 DROP INTO AFFECTED EYE OPHTHALMIC ONCE DAILY TAKING BYETTA 10 MCG PEN 10 MCG/0.04ML SOLUTION PEN-INJECTOR 0.02 ML UP TO 1 HOUR BEFORE BREAKFAST AND EVENING MEAL SUBCUTANEOUS TWICE A DAY TAKING MULTIVITAMIN ADULT TABLET ORALLY DAILY TAKING VITAMIN D 1000 UNIT TABLET 1 TABLET ORALLY ONCE A DAY TAKING VITAMIN B COMPLEX TABLET ORALLY DAILY TAKING VITAMIN C & D3/OMID HIPS 500-1000-20 MG-UNIT-MG CAPSULE ORALLY DAILY TAKING COQ-10 100 MG CAPSULE 1 CAPSULE WITH A MEAL ORALLY ONCE A DAY TAKING [id number] COMPLEX TABLET ORALLY DAILY TAKING ASPIR-81 81 MG TABLET DELAYED RELEASE 1 TABLET ORALLY ONCE A DAY TAKING METFORMIN HCL ER 750 MG TABLET EXTENDED RELEASE 24 HOUR ORAL BID TAKING CRESTOR 10 MG TABLET ORAL ONCE DAILY TAKING RAMIPRIL 5 MG CAPSULE ORAL ONCE DAILY TAKING SPIRONOLACTONE 25 MG TABLET ORAL ONCE DAILY TAKING SERTRALINE HCL 100 MG TABLET ORALLY ONCE DAILY TAKING LUMIGAN 0.01 % SOLUTION 1 DROP INTO AFFECTED EYE IN THE EVENING OPHTHALMIC OU DAILY TAKING ATENOLOL 25 MG TABLET ORAL ONCE DAILY TAKING NEXIUM 40 MG CAPSULE DELAYED RELEASE 1 CAPSULE ORALLY ONCE A DAY TAKING MAY HAVE - - MEDICAL MARIJUANA DAILY TAKING MELOXICAM 15 MG TABLET 1 TABLET ORALLY ONCE A DAY NOT-TAKING FEMARA 2.5 MG TABLET 1 TABLET ORALLY ONCE A DAY MEDICATION LIST REVIEWED AND RECONCILED WITH THE PATIENT PAST MEDICAL HISTORY BREAST CANCER LEFT WITH LYMPHEDEMA DIAGNOSED 2010 DM HTN ESOPHAGEAL STRICTURE RICHARD WITH CPAP CHRONIC BACK PAIN ALLERGIES N.K.D.A. SURGICAL HISTORY D/C HYSTERECTOMY BILATERAL MASTECTOMY 2010 INFUSAPORT INSERTED 2010 INFUSAPORT REMOVED 2011 EGD-DILATATION 08/2016 CATARACT SURGERIES-BOTH EYES 09/2106 FAMILY HISTORY FATHER: 70 YRS, DIAGNOSED WITH UNSPECIFIED HEART DISEASE MOTHER: 70 YRS, UNSPECIFIED HEART DISEASE, UNSPECIFIED CEREBRAL ARTERY OCCLUSION WITH CEREBRAL INFARCTION 1 SISTER(S) - HEALTHY. 1 SON(S) , 1 DAUGHTER(S) . 4 - BROTHERS ( AORTIC ANEURYSM, STROKE, CANCER ) SON - HTN, PSORIATIC ARTHRITIS , DAUGHTER- HEALTHY. SOCIAL HISTORY GENERAL: TOBACCO USE ARE YOU A:NONSMOKER PAIN CLINIC PFS, CLERGY, PUBLIC HEALTH REFERRALS PFS REFERRAL NEEDED?NO CLERGY REFERRAL NEEDED?NO PUBLIC HEALTH REFERRAL NEEDED?NO WAS THE PROVIDER NOTIFIED OF ANY PERTINENT INFO? N/A HAS THE PATIENT BEEN EDUCATED REGARDING HIS/HER PLAN OF CARE?YES HAS THE PATIENT BEEN EDUCATED REGARDING PAIN, THE RISK FOR PAIN, THE IMPORTANCE OF EFFECTIVE PAIN MANAGEMENT, AND THE PAIN ASSESSMENT PROCESS?YES LATEX QUESTIONNAIRE LATEX ALLERGY : HAVE YOU EVER DEVELOPED ANY TYPE OF REACTION AFTER HANDLING LATEX PRODUCTS SUCH RUBBER GLOVES, CONDOMS, DIAPHRAGMS, BALLOONS, SOCKS, OR UNDERWEAR?NO LATEX ALLERGY : HAVE YOU EVER DEVELOPED ANY TYPE OF REACTION DURING OR AFTER DENTAL APPOINTMENT, VAGINAL/RECTAL EXAMINATION, SURGICAL PROCEDURE, OR ANY OTHER EXPOSURE?NO DATE ASKED : 08/04/2019 LATEX RISK : HAVE YOU EVER HAD ANY DIFFICULTY BREATHING OR HIVES AFTER EATING OR HANDLING ANY FRUITS, OR VEGETABLES; SUCH KIWI, BANANAS, STONE FRUITS, OR CHESTNUTSNO LATEX RISK : DO YOU HAVE A PREVIOUS PERSONAL HISTORY OF MORE THAN NINE SURGERIES, SPINA BIFIDA, OR REPEATED CATHERIZATIONS? 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 [phone] [employer] [id number] MANDAEN LANGUAGE LANGUAGES SPOKEN:AUSTRIAN DOMESTIC VIOLENCE DO YOU FEEL SAFE IN YOUR ENVIRONMENT?YES ALCOHOL SCREENING DID YOU HAVE A DRINK CONTAINING ALCOHOL IN THE PAST YEAR?YES HOW OFTEN DID YOU HAVE SIX OR MORE DRINKS ON ONE OCCASION IN THE PAST YEAR?NEVER (0 POINTS) HOW MANY DRINKS DID YOU HAVE ON A TYPICAL DAY WHEN YOU WERE DRINKING IN THE PAST YEAR?1 OR 2 (0 POINTS) HOW OFTEN DID YOU HAVE A DRINK CONTAINING ALCOHOL IN THE PAST YEAR?MONTHLY OR LESS (1 POINT) POINTS1 INTERPRETATIONNEGATIVE RECREATIONAL DRUG USE DRUG USE?NO HAS MEDICAL MARIJUANA LEARNING BARRIERS / SPECIAL NEEDS CHANGE FROM LAST VISIT?NO BARRIERS TO LEARNING?NO HEARING IMPAIRED?NO VISION IMPAIRED?NO COGNITIVELY IMPAIRED?NO READINESS TO LEARN?NO LEARNING PREFERENCES?NO LEARNING CAPABILITIES PRESENT?YES EMOTIONAL BARRIERS?NO SPECIAL DEVICES?NO GERM DRIER NEEDED?NO REVIEWED WITH PATIENT 01/06/19 0947 JSREVIEWED WITH PT 02/26/19 0854 BVREVIEWED WITH PATIENT 06/16/19 0915 JSPRE PROCEDURE PHONE INTERVIEW 08/01/2019 LAS08/04/2019 0858 REVIEWED WITH PT. AD. HOSPITALIZATION/MAJOR DIAGNOSTIC PROCEDURE SURGERY RELATED REVIEW OF SYSTEMS REVIEWED BY: PROVIDER: JALEN WONG MD . CONSTITUTIONAL: ANY CHANGE IN YOUR MEDICAL CONDITION? NO . CHILLS NO . FEVER NO . INFECTION: DO YOU HAVE NEW INFECTIONS? NO . DO YOU HAVE HISTORY OF MRSA? NO . MUSCULOSKELETAL: ANY NEW PATTERNS OF PAIN OR NUMBNESS? NO . GASTROENTEROLOGY: ANY NEW CHANGE IN BOWEL CONTROL? NO . GENITOURINARY: ANY NEW CHANGE IN BLADDER CONTROL? NO . IS THERE A CHANCE YOU COULD BE ? NO . HEMATOLOGY/LYMPH: DO YOU TAKE ANY BLOOD THINNERS? (FOR EXAMPLE- COUMADIN, PLAVIX, AGGRENOX, PLATEL, PRADAXA, OR XARELTO) NO . WHEN WAS YOUR LAST DOSE? DATE: TIME: . NEUROLOGY: HAVE YOU FALLEN IN THE PAST 12 MONTHS? NO . ANY NEW EXTREMITY NUMBNESS OR WEAKNESS? NO . CARDIOLOGY: DO YOU HAVE A PACEMAKER OR DEFIBRILLATOR? NO . RESPIRATORY: HAVE YOU BEEN SICK IN THE PAST WEEK? NO . FEVER NO . FLU LIKE SYMPTOMS? NO . COUGH NO . INTEGUMENTARY: DO YOU HAVE ANY RASHES OR OPEN SORES? NO . ALLERGIC/IMMUNO: ARE YOU ALLERGIC TO IV DYE? NO . ANY NEW ALLERGIES? NO . PSYCHIATRIC: DO YOU HAVE THOUGHTS OF HURTING YOURSELF OR SOMEONE ELSE? NO . ARE YOU ABUSED, NEGLECTED, OR IN AN UNSAFE ENVIRONMENT? NO . ENDOCRINOLOGY: ARE YOU DIABETIC? YES . OTHER: DO YOU NEED ANY PRESCRIPTIONS? NO . IF YES, PLEASE LIST: ____ . ANY NEW PROBLEMS WITH YOUR MEDICATIONS? NO . WHEN DID YOU LAST EAT? ____ . WHEN DID YOU LAST DRINK? ____ . WHAT DID YOU LAST DRINK? ____ . NAME OF PERSON DRIVING YOU HOME? ____ . DO YOU HAVE ANY OTHER QUESTIONS OR CONCERNS NO . VITAL SIGNS WT 298.0 LBS, HT 65 IN, BMI 49.58 INDEX, BP 144/79 MM HG, HR 93 /MIN, RR 16 /MIN, TEMP 96.0 F, OXYGEN SAT % 98%, NA INITIALS AW 0847. EXAMINATION GENERAL EXAMINATION: PATIENT IS ALERT O X 3 AND COOPERATIVE. ANTALGIC WALK. PATIENT IS LIMPING FROM THE RIGHT LEG. PATIENT REPORTS PAIN IN LOWER BACK. TENDERNESS OVER LOWER BACK. STRAIGHT LEG RAISE OF THE RIGHT LEG IS POSITIVE AT 50 DEGREES FOR RADICULOPATHY. MRI OF THE LUMBAR SPINE DONE ON 01/07/2016 SHOWS FACET ARTHROPATHY CHANGES, SPINAL STENOSIS, AND BULGING DISCS. ASSESSMENTS SPINAL STENOSIS OF LUMBAR REGION WITH NEUROGENIC CLAUDICATION - M48.062 (PRIMARY) OTHER CHRONIC PAIN - G89.29 LOW BACK PAIN - M54.5 TREATMENT SPINAL STENOSIS OF LUMBAR REGION WITH NEUROGENIC CLAUDICATION CLINICAL NOTES: WE DISCUSSED SEVERAL ISSUES WITH MS. MOORE'S PAIN MANAGEMENT CASE. THE PATIENT'S LAST LUMBAR MRI WAS DONE IN DECEMBER 2015, THEREFORE I WILL ORDER FOR A NEW LUMBAR MRI TO BE DONE. I ADVISED THE PATIENT TO DOCUMENT AT HOME HOW LONG SHE IS ABLE TO STAND AND HOW MANY STEPS SHE IS ABLE TO TAKE BEFORE SHE NEEDS TO REST FROM THE PAIN. THE PATIENT WILL FOLLOW UP WITH ME ON OCTOBER 13 OR OCTOBER 14 TO REVIEW THE LUMBAR MRI AND DISCUSS ALTERNATIVES. INSTRUCTIONS WERE GIVEN, QUESTIONS WERE ANSWERED, PATIENT REPORTS UNDERSTANDING AND AGREES WITH THE PLAN. I, ALEC MELARA, DOCUMENTED THE ABOVE INFORMATION ACTING A SCRIBE FOR DR. WONG. I HAVE REVIEWED THE ABOVE DOCUMENT, WRITTEN BY ALEC PATTERSON AND I VERIFY THAT IT IS ACCURATE. . LOW BACK PAIN [facility] MRI LUMBAR W/O CONTRAST (CPT [id number] PROCEDURE CODES FA211 ESTABILISHED PATIENT [facility] FACILITY CHARGE [id number] CURRENT MEDS W/DOSAGES DOCUMENTED G8730 PAIN ASSESS POS TOOL F/U PLAN DOC DISPOSITION & COMMUNICATION FOLLOW UP 10/13 OR 10/14 (REASON: ORDER NEW LS MRI, F/UP WITH DR Keita ON 10/13 OR 10/14 FOR MILD DISCUSS) ELECTRONICALLY SIGNED BY JALEN WONG MD, MD ON 09/24/2019 AT 11:41 AM EDT DISCLAIMER : THIS IS A VISIT SUMMARY EXTRACTED FROM THE [employer] CHART. IT IS NOT A COPY OF THE [employer] PROGRESS NOTE. JACINDA
== END ==
LOC: M PAIN 08:45
PROVIDERS: ATTEND Anesthesiology
DX: G89.29 Other chronic pain (principal); M48.062 Spinal stenosis, lumbar region with neurogenic claudication; M54.5 Low back pain; E11.9 Type 2 diabetes mellitus without complications; I10 Essential (primary) hypertension; G47.33 Obstructive sleep apnea (adult) (pediatric); Z85.3 Personal history of malignant neoplasm of breast; Z90.13 Acquired absence of bilateral breasts and nipples; Z98.41 Cataract extraction status, right eye; Z98.42 Cataract extraction status, left eye; Z79.82 Long term (current) use of aspirin; Z79.84 Long term (current) use of oral hypoglycemic drugs; Z79.1 Long term (current) use of non-steroidal anti-inflammatories (NSAID); Z79.899 Other long term (current) drug therapy

== ENCOUNTER → 2019-10-01 | Outpatient (CLI) | payer MEDICARE, BC ==
--- NOTE | 2019-10-01 11:54 | REP ---
MRI LUMBAR SPINE WITHOUT CONTRAST: HISTORY: Low back pain. Comparison lumbar spine MRI study is from January 07, 2016. TECHNIQUE: Sagittal and axial T1- and T2-weighted scans are acquired in the usual fashion with and without fat saturation. Sequences include spin echo, turbo spin-echo, and STIR imaging sequences. MRI FINDINGS: Normal caliber abdominal aorta. No extra vertebral abnormality is observed. 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 The largest of these measures 2.9 cm in greatest diameter. Cortical and medullary bone signal intensity are otherwise normal. Lumbar vertebral body heights are preserved. Alignment is normal. There is diffuse degenerative disc disease and spondylosis change. The tip of the conus medullaris is normal in position and appearance at T12-L1 unchanged. There is mild diffuse disc bulging at the posterior margin of the T12-L1 disc. Similar diffuse disc bulging and mild osteophytic ridging is seen and L1-L2. At L2-L3, there is a small right paracentral focal disc protrusion subtly indenting the right ventral margin of the thecal sac. This is unchanged. No central canal stenosis is noted. Mild ligamentum flavum and facet hypertrophy is present. No foraminal narrowing is appreciated. At L3-L4, there is mild diffuse disc bulging. Ligamentum flavum and facet hypertrophy is seen but no central canal stenosis is noted. No foraminal narrowing is seen. At L4-L5, there are moderate facet hypertrophy changes and ligamentum flavum hypertrophy is seen. Mild diffuse disc bulging is noted. The facet hypertrophy is slightly more pronounced than on the 2016 prior study at L4-5. There is a left foraminal focal disc protrusion at L4-5 which it is a new finding. This extends cranially on parasagittal images. It compresses the left ventral margin of the thecal sac and produces medial foraminal encroachment. There is marrow edema on either side of the L4-5 disc on the left at this level. At L5-S1, there is diffuse disc bulging. Facet ligamentum flavum hypertrophy are noted. IMPRESSION: Moderate diffuse degenerative spondylosis. The most significant change when compared to the 2016 study is that there is a left foraminal disc protrusion at L4-5 which is a new finding producing foraminal encroachment. Osteoarthritic facet and ligamentum flavum hypertrophy changes are little more prominent at L4-5 as well compared to the prior study. Electronically Signed by Celestine Weeks MD 10/01/2019 12:16 P
== END ==
LOC: M RAD 09:33
PROVIDERS: ATTEND Anesthesiology
DX: M43.06 Spondylolysis, lumbar region (principal); M54.5 Low back pain

== ENCOUNTER → 2019-10-15 | Outpatient (CLI) | payer MEDICARE, BC ==
--- NOTE | 2019-10-31 01:12 | ECWPNPC ---
PATIENT NAME: MATT MOORE : 1945 GENDER: FEMALE VISIT DATE: 10/15/2019 DISCHARGE DATE: 10/15/19 1129 VISIT LOCKED DATE TIME: PHYSICIAN: JALEN WONG MD RESOURCE: JALEN WONG MD REASON FOR APPOINTMENT 1. DISCUSS MILD HISTORY OF PRESENT ILLNESS FALL RISK SCREENING: SCREENING :NO FALLS REPORTED IN THE LAST YEAR HISTORY OF PRESENT ILLNESS: PERMISSION FROM PATIENT WAS RECEIVED TO DO TELEPHONE OFFICE VISIT. 73-YEAR-OLD FEMALE PATIENT WITH A HISTORY OF CHRONIC LOW BACK AND LEG PAIN. THE PATIENT DESCRIBES THE PAIN ACHING AND COMES AND GOES WITH A PAIN SCORE OF 6-9/10 DEPENDING ON PHYSICAL ACTIVITY. PATIENT STATES THAT SHE CAN ONLY STAND FOR 3 MINUTES AND CAN ONLY WALK ABOUT 22 STEPS ON [address]ERAGE AND GETS A TIGHTENING IN HER BACK AND MUST BEND OVER OR SIT DOWN. THE PATIENT STATES THAT THE PAIN IS MAINLY LOCATED IN THE LOWER BACK ON BOTH SIDES. PATIENT ALSO EXPERIENCES PAIN THAT RADIATES TO BOTH LEGS, LEFT WORSE THAN RIGHT, AND HAS DIFFICULTY STANDING BECAUSE OF IT. PATIENT DESCRIBED FEELING PANICKED WHEN THE PAIN COMES ON. THE PATIENT STATES THAT THE PAIN IS RELIEVED WITH BENDING OR SITTING. PATIENT WAKES UP AT NIGHT FROM THE PAIN. PATIENT DENIES UNEXPLAINABLE WEIGHT LOSS, FEVER, CHILLS, NEW CHANGES ON HER URINARY OR BOWEL CONTROL. PATIENT DENIES UNEXPLAINABLE WEIGHT LOSS, FEVER, CHILLS, NEW CHANGES ON HIS URINARY OR BOWEL CONTROL. CURRENT MEDICATIONS TAKING ALPHAGAN P 0.1 % SOLUTION 1 DROP INTO AFFECTED EYE OPHTHALMIC ONCE DAILY TAKING BYETTA 10 MCG PEN 10 MCG/0.04ML SOLUTION PEN-INJECTOR 0.02 ML UP TO 1 HOUR BEFORE BREAKFAST AND EVENING MEAL SUBCUTANEOUS TWICE A DAY TAKING MULTIVITAMIN ADULT TABLET ORALLY DAILY TAKING VITAMIN D 1000 UNIT TABLET 1 TABLET ORALLY ONCE A DAY TAKING VITAMIN B COMPLEX TABLET ORALLY DAILY TAKING VITAMIN C & D3/OMID HIPS 500-1000-20 MG-UNIT-MG CAPSULE ORALLY DAILY TAKING COQ-10 100 MG CAPSULE 1 CAPSULE WITH A MEAL ORALLY ONCE A DAY TAKING [id number] COMPLEX TABLET ORALLY DAILY TAKING ASPIR-81 81 MG TABLET DELAYED RELEASE 1 TABLET ORALLY ONCE A DAY TAKING METFORMIN HCL ER 750 MG TABLET EXTENDED RELEASE 24 HOUR ORAL BID TAKING CRESTOR 10 MG TABLET ORAL ONCE DAILY TAKING RAMIPRIL 5 MG CAPSULE ORAL ONCE DAILY TAKING SPIRONOLACTONE 25 MG TABLET ORAL ONCE DAILY TAKING SERTRALINE HCL 100 MG TABLET ORALLY ONCE DAILY TAKING LUMIGAN 0.01 % SOLUTION 1 DROP INTO AFFECTED EYE IN THE EVENING OPHTHALMIC OU DAILY TAKING ATENOLOL 25 MG TABLET ORAL ONCE DAILY TAKING NEXIUM 40 MG CAPSULE DELAYED RELEASE 1 CAPSULE ORALLY ONCE A DAY TAKING MAY HAVE - - MEDICAL MARIJUANA DAILY TAKING MELOXICAM 15 MG TABLET 1 TABLET ORALLY ONCE A DAY NOT-TAKING FEMARA 2.5 MG TABLET 1 TABLET ORALLY ONCE A DAY MEDICATION LIST REVIEWED AND RECONCILED WITH THE PATIENT PAST MEDICAL HISTORY BREAST CANCER LEFT WITH LYMPHEDEMA DIAGNOSED 2010 DM HTN ESOPHAGEAL STRICTURE RICHARD WITH CPAP CHRONIC BACK PAIN ALLERGIES N.K.D.A. SURGICAL HISTORY D/C HYSTERECTOMY BILATERAL MASTECTOMY 2010 INFUSAPORT INSERTED 2010 INFUSAPORT REMOVED 2011 EGD-DILATATION 08/2016 CATARACT SURGERIES-BOTH EYES 09/2106 FAMILY HISTORY FATHER: 70 YRS, DIAGNOSED WITH UNSPECIFIED HEART DISEASE MOTHER: 70 YRS, UNSPECIFIED HEART DISEASE, UNSPECIFIED CEREBRAL ARTERY OCCLUSION WITH CEREBRAL INFARCTION 1 SISTER(S) - HEALTHY. 1 SON(S) , 1 DAUGHTER(S) . 4 - BROTHERS ( AORTIC ANEURYSM, STROKE, CANCER ) SON - HTN, PSORIATIC ARTHRITIS , DAUGHTER- HEALTHY. SOCIAL HISTORY GENERAL: TOBACCO USE ARE YOU A:NONSMOKER PAIN CLINIC PFS, CLERGY, PUBLIC HEALTH REFERRALS PFS REFERRAL NEEDED?NO CLERGY REFERRAL NEEDED?NO PUBLIC HEALTH REFERRAL NEEDED?NO WAS THE PROVIDER NOTIFIED OF ANY PERTINENT INFO? N/A HAS THE PATIENT BEEN EDUCATED REGARDING HIS/HER PLAN OF CARE?YES HAS THE PATIENT BEEN EDUCATED REGARDING PAIN, THE RISK FOR PAIN, THE IMPORTANCE OF EFFECTIVE PAIN MANAGEMENT, AND THE PAIN ASSESSMENT PROCESS?YES LATEX QUESTIONNAIRE LATEX ALLERGY : HAVE YOU EVER DEVELOPED ANY TYPE OF REACTION AFTER HANDLING LATEX PRODUCTS SUCH RUBBER GLOVES, CONDOMS, DIAPHRAGMS, BALLOONS, SOCKS, OR UNDERWEAR?NO LATEX ALLERGY : HAVE YOU EVER DEVELOPED ANY TYPE OF REACTION DURING OR AFTER DENTAL APPOINTMENT, VAGINAL/RECTAL EXAMINATION, SURGICAL PROCEDURE, OR ANY OTHER EXPOSURE?NO DATE ASKED : 08/04/2019 LATEX RISK : HAVE YOU EVER HAD ANY DIFFICULTY BREATHING OR HIVES AFTER EATING OR HANDLING ANY FRUITS, OR VEGETABLES; SUCH KIWI, BANANAS, STONE FRUITS, OR CHESTNUTSNO LATEX RISK : DO YOU HAVE A PREVIOUS PERSONAL HISTORY OF MORE THAN NINE SURGERIES, SPINA BIFIDA, OR REPEATED CATHERIZATIONS? 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 [phone] JEHOVAH'S WITNESS [id number] HINDUISM LANGUAGE LANGUAGES SPOKEN:MOLDOVAN DOMESTIC VIOLENCE DO YOU FEEL SAFE IN YOUR ENVIRONMENT?YES NEW PATIENT PAIN DIARY PATIENT DESCRIBES PAIN :ACHING, IT COMES AND GOES FROM 0-10, WHAT LEVEL IS YOUR PAIN TODAY?5 PRECIPITATING FACTORS STANDING FROM SITTING, WALKING ALLEVIATING FACTORS SITTING IMPACT ON FUNCTION YES ALCOHOL SCREENING DID YOU HAVE A DRINK CONTAINING ALCOHOL IN THE PAST YEAR?YES HOW OFTEN DID YOU HAVE SIX OR MORE DRINKS ON ONE OCCASION IN THE PAST YEAR?NEVER (0 POINTS) HOW MANY DRINKS DID YOU HAVE ON A TYPICAL DAY WHEN YOU WERE DRINKING IN THE PAST YEAR?1 OR 2 (0 POINTS) HOW OFTEN DID YOU HAVE A DRINK CONTAINING ALCOHOL IN THE PAST YEAR?MONTHLY OR LESS (1 POINT) POINTS1 INTERPRETATIONNEGATIVE RECREATIONAL DRUG USE DRUG USE?NO HAS MEDICAL MARIJUANA LEARNING BARRIERS / SPECIAL NEEDS CHANGE FROM LAST VISIT?NO BARRIERS TO LEARNING?NO HEARING IMPAIRED?NO VISION IMPAIRED?NO COGNITIVELY IMPAIRED?NO READINESS TO LEARN?NO LEARNING PREFERENCES?NO LEARNING CAPABILITIES PRESENT?YES EMOTIONAL BARRIERS?NO SPECIAL DEVICES?NO ANIMAL DAYCARE PROVIDER NEEDED?NO REVIEWED WITH PATIENT 01/06/19 0947 JSREVIEWED WITH PT 02/26/19 0854 BVREVIEWED WITH PATIENT 06/16/19 0915 JSPRE PROCEDURE PHONE INTERVIEW 08/01/2019 LAS08/04/2019 0858 REVIEWED WITH PT. AD. HOSPITALIZATION/MAJOR DIAGNOSTIC PROCEDURE SURGERY RELATED REVIEW OF SYSTEMS REVIEWED BY: PROVIDER: JALEN WONG MD . CONSTITUTIONAL: ANY CHANGE IN YOUR MEDICAL CONDITION? NO . CHILLS NO . FEVER NO . INFECTION: DO YOU HAVE NEW INFECTIONS? NO . DO YOU HAVE HISTORY OF MRSA? NO . MUSCULOSKELETAL: ANY NEW PATTERNS OF PAIN OR NUMBNESS? NO . GASTROENTEROLOGY: ANY NEW CHANGE IN BOWEL CONTROL? NO . GENITOURINARY: ANY NEW CHANGE IN BLADDER CONTROL? NO . IS THERE A CHANCE YOU COULD BE ? NO . HEMATOLOGY/LYMPH: DO YOU TAKE ANY BLOOD THINNERS? (FOR EXAMPLE- COUMADIN, PLAVIX, AGGRENOX, PLATEL, PRADAXA, OR XARELTO) NO . WHEN WAS YOUR LAST DOSE? DATE: TIME: . NEUROLOGY: HAVE YOU FALLEN IN THE PAST 12 MONTHS? NO . ANY NEW EXTREMITY NUMBNESS OR WEAKNESS? NO . CARDIOLOGY: DO YOU HAVE A PACEMAKER OR DEFIBRILLATOR? NO . RESPIRATORY: HAVE YOU BEEN SICK IN THE PAST WEEK? NO . FEVER NO . FLU LIKE SYMPTOMS? NO . COUGH NO . INTEGUMENTARY: DO YOU HAVE ANY RASHES OR OPEN SORES? NO . ALLERGIC/IMMUNO: ARE YOU ALLERGIC TO IV DYE? NO . ANY NEW ALLERGIES? NO . PSYCHIATRIC: DO YOU HAVE THOUGHTS OF HURTING YOURSELF OR SOMEONE ELSE? NO . ARE YOU ABUSED, NEGLECTED, OR IN AN UNSAFE ENVIRONMENT? NO . ENDOCRINOLOGY: ARE YOU DIABETIC? YES . OTHER: DO YOU NEED ANY PRESCRIPTIONS? NO . IF YES, PLEASE LIST: ____ . ANY NEW PROBLEMS WITH YOUR MEDICATIONS? NO . WHEN DID YOU LAST EAT? ____ . WHEN DID YOU LAST DRINK? ____ . WHAT DID YOU LAST DRINK? ____ . NAME OF PERSON DRIVING YOU HOME? ____ . DO YOU HAVE ANY OTHER QUESTIONS OR CONCERNS NO . EXAMINATION GENERAL EXAMINATION: TELEMEDICINE VISIT. MRI DONE ON 10/01/2019 WAS REVIEWED AND SHOWS FACET ARTHROPATHY CHANGES AND BULGING DISC AT L3-L4 AND L4-L5. ASSESSMENTS LUMBAR FACET ARTHROPATHY - M47.816 (PRIMARY) INTERVERTEBRAL DISC DISORDERS WITH RADICULOPATHY, LUMBAR REGION - M51.16 TREATMENT LUMBAR FACET ARTHROPATHY CLINICAL NOTES: WE DISCUSSED SEVERAL ISSUES WITH MS. MOORE'S PAIN MANAGEMENT CASE. PATIENT IS NOT CURRENTLY A MILD CANDIDATE DUE TO THE MRI NOT SHOWING CENTRAL STENOSIS. I WOULD LIKE TO TRY THERAPEUTIC LUMBAR FACET BLOCK AND THEN POSSIBLY EPIDURAL IN THE FUTURE. PATIENT WILL FOLLOWUP WITH JIMBO BISHOP, NURSE PRACTITIONER, IN 1 WEEK FOR MEDICATION MANAGEMENT IN THE MEANTIME. PATIENT UNDERSTANDS AND IS AGREEMENT WITH THE TREATMENT PLAN. TOTAL TIME FOR TELEPHONE VISIT WAS 22 MINUTES. I, WILMA GORDILLO , DOCUMENTED THE ABOVE INFORMATION ACTING A SCRIBE FOR DR. WONG. I HAVE REVIEWED THE ABOVE DOCUMENT, WRITTEN BY YESENIA PAINTER, AND I VERIFY THAT IT IS ACCURATE. . DISPOSITION & COMMUNICATION FOLLOW UP 1-2 WEEK (REASON: F/UP WITH JIMBO WELLS FOR MED MANAGE; NOT CANDIDATE FOR MILD AT MOMENT; MAY CONSIDER LFB OR LESI IN FUTURE) ELECTRONICALLY SIGNED BY JALEN WONG MD, MD ON 10/30/2019 AT 04:20 PM EDT DISCLAIMER : THIS IS A VISIT SUMMARY EXTRACTED FROM THE [employer] CHART. IT IS NOT A COPY OF THE [employer] PROGRESS NOTE. MTDD
== END ==
LOC: M PAIN 10:00
PROVIDERS: ATTEND Anesthesiology
DX: M51.16 Intervertebral disc disorders with radiculopathy, lumbar region (principal); E11.9 Type 2 diabetes mellitus without complications; I10 Essential (primary) hypertension; Z79.82 Long term (current) use of aspirin; Z79.84 Long term (current) use of oral hypoglycemic drugs; Z79.899 Other long term (current) drug therapy

== ENCOUNTER → 2019-10-28 | Outpatient (CLI) | payer MEDICARE, BC ==
--- NOTE | 2019-10-29 01:45 | ECWPNPC ---
PATIENT NAME: MATT MOORE : 1945 GENDER: FEMALE VISIT DATE: 10/28/2019 DISCHARGE DATE: 10/28/19 1139 VISIT LOCKED DATE TIME: PHYSICIAN: JIMBO BISHOP RESOURCE: JIMBO BISHOP REASON FOR APPOINTMENT 1. BACK/MEDS [phone] HISTORY OF PRESENT ILLNESS HISTORY OF PRESENT ILLNESS: PHONE CALL TO PATIENT WHO IS AGREEABLE TO DO PHONE VISIT TODAY. CONTINUES TO SUFFER FROM LOW BACK PAIN AND ACTIVITY INTOLERANCE SECONDARY TO LOW BACK PAIN. SHE SPOKE WITH DR. WONG A FEW WEEKS AGO REGARDING FUTURE PROCEDURES AND POSSIBLY DOING THE MILD PROCEDURE. HE DOES NOT FEEL THOUGH SHE HAS CENTRAL CANAL STENOSIS THAT WOULD INDICATE NEED FOR MILD PROCEDURE, BUT DID RECOMMEND TRYING THERAPEUTIC LUMBAR FACET BLOCK AND POSSIBLY EPIDURALS. CONTINUES TO COMPLAIN OF ACTIVITY INTOLERANCE. SHE DOES NOT FEEL MEDICAL MARIJUANA IS EFFECTIVE IT WAS. DISCUSSED MEDICATION AND TREATMENT OPTIONS. RATING PAIN INTENSITY A 5/10 VAS. PAIN IS AGGRAVATED BY WALKING AND RELIEVED WITH SITTING. PAIN THE PATIENT DESCRIBES THE PAIN... FALL RISK SCREENING: SCREENING :NO FALLS REPORTED IN THE LAST YEAR CURRENT MEDICATIONS TAKING ALPHAGAN P 0.1 % SOLUTION 1 DROP INTO AFFECTED EYE OPHTHALMIC ONCE DAILY TAKING BYETTA 10 MCG PEN 10 MCG/0.04ML SOLUTION PEN-INJECTOR 0.02 ML UP TO 1 HOUR BEFORE BREAKFAST AND EVENING MEAL SUBCUTANEOUS TWICE A DAY TAKING MULTIVITAMIN ADULT TABLET ORALLY DAILY TAKING VITAMIN D 1000 UNIT TABLET 1 TABLET ORALLY ONCE A DAY TAKING VITAMIN B COMPLEX TABLET ORALLY DAILY TAKING VITAMIN C & D3/OMID HIPS 500-1000-20 MG-UNIT-MG CAPSULE ORALLY DAILY TAKING COQ-10 100 MG CAPSULE 1 CAPSULE WITH A MEAL ORALLY ONCE A DAY TAKING [id number] COMPLEX TABLET ORALLY DAILY TAKING ASPIR-81 81 MG TABLET DELAYED RELEASE 1 TABLET ORALLY ONCE A DAY TAKING METFORMIN HCL ER 750 MG TABLET EXTENDED RELEASE 24 HOUR ORAL BID TAKING CRESTOR 10 MG TABLET ORAL ONCE DAILY TAKING RAMIPRIL 5 MG CAPSULE ORAL ONCE DAILY TAKING SPIRONOLACTONE 25 MG TABLET ORAL ONCE DAILY TAKING SERTRALINE HCL 100 MG TABLET ORALLY ONCE DAILY TAKING LUMIGAN 0.01 % SOLUTION 1 DROP INTO AFFECTED EYE IN THE EVENING OPHTHALMIC OU DAILY TAKING ATENOLOL 25 MG TABLET ORAL ONCE DAILY TAKING NEXIUM 40 MG CAPSULE DELAYED RELEASE 1 CAPSULE ORALLY ONCE A DAY TAKING MAY HAVE - - MEDICAL MARIJUANA DAILY TAKING MELOXICAM 15 MG TABLET 1 TABLET ORALLY ONCE A DAY NOT-TAKING FEMARA 2.5 MG TABLET 1 TABLET ORALLY ONCE A DAY MEDICATION LIST REVIEWED AND RECONCILED WITH THE PATIENT PAST MEDICAL HISTORY BREAST CANCER LEFT WITH LYMPHEDEMA DIAGNOSED 2010 DM HTN ESOPHAGEAL STRICTURE RICHARD WITH CPAP CHRONIC BACK PAIN ALLERGIES N.K.D.A. SURGICAL HISTORY D/C HYSTERECTOMY BILATERAL MASTECTOMY 2010 INFUSAPORT INSERTED 2010 INFUSAPORT REMOVED 2011 EGD-DILATATION 08/2016 CATARACT SURGERIES-BOTH EYES 09/2106 FAMILY HISTORY FATHER: 70 YRS, DIAGNOSED WITH UNSPECIFIED HEART DISEASE MOTHER: 70 YRS, UNSPECIFIED CEREBRAL ARTERY OCCLUSION WITH CEREBRAL INFARCTION, UNSPECIFIED HEART DISEASE 1 SISTER(S) - HEALTHY. 1 SON(S) , 1 DAUGHTER(S) . 4 - BROTHERS ( AORTIC ANEURYSM, STROKE, CANCER ) SON - HTN, PSORIATIC ARTHRITIS , DAUGHTER- HEALTHY. SOCIAL HISTORY GENERAL: TOBACCO USE ARE YOU A:NONSMOKER PAIN CLINIC PFS, CLERGY, PUBLIC HEALTH REFERRALS PFS REFERRAL NEEDED?NO CLERGY REFERRAL NEEDED?NO PUBLIC HEALTH REFERRAL NEEDED?NO WAS THE PROVIDER NOTIFIED OF ANY PERTINENT INFO? N/A HAS THE PATIENT BEEN EDUCATED REGARDING HIS/HER PLAN OF CARE?YES HAS THE PATIENT BEEN EDUCATED REGARDING PAIN, THE RISK FOR PAIN, THE IMPORTANCE OF EFFECTIVE PAIN MANAGEMENT, AND THE PAIN ASSESSMENT PROCESS?YES LATEX QUESTIONNAIRE LATEX ALLERGY : HAVE YOU EVER DEVELOPED ANY TYPE OF REACTION AFTER HANDLING LATEX PRODUCTS SUCH RUBBER GLOVES, CONDOMS, DIAPHRAGMS, BALLOONS, SOCKS, OR UNDERWEAR?NO LATEX ALLERGY : HAVE YOU EVER DEVELOPED ANY TYPE OF REACTION DURING OR AFTER DENTAL APPOINTMENT, VAGINAL/RECTAL EXAMINATION, SURGICAL PROCEDURE, OR ANY OTHER EXPOSURE?NO DATE ASKED : 08/04/2019 LATEX RISK : HAVE YOU EVER HAD ANY DIFFICULTY BREATHING OR HIVES AFTER EATING OR HANDLING ANY FRUITS, OR VEGETABLES; SUCH KIWI, BANANAS, STONE FRUITS, OR CHESTNUTSNO LATEX RISK : DO YOU HAVE A PREVIOUS PERSONAL HISTORY OF MORE THAN NINE SURGERIES, SPINA BIFIDA, OR REPEATED CATHERIZATIONS? 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 [phone] BUDDHISM [id number] PENTECOSTAL LANGUAGE LANGUAGES SPOKEN:DIVEHI DOMESTIC VIOLENCE DO YOU FEEL SAFE IN YOUR ENVIRONMENT?YES NEW PATIENT PAIN DIARY TODAY'S VISIT 10/28/2019 PATIENT DESCRIBES PAIN :ACHING, IT COMES AND GOES FROM 0-10, WHAT LEVEL IS YOUR PAIN TODAY?5 PRECIPITATING FACTORS STANDING FROM SITTING, WALKING ALLEVIATING FACTORS SITTING IMPACT ON FUNCTION YES ALCOHOL SCREENING DID YOU HAVE A DRINK CONTAINING ALCOHOL IN THE PAST YEAR?YES HOW OFTEN DID YOU HAVE SIX OR MORE DRINKS ON ONE OCCASION IN THE PAST YEAR?NEVER (0 POINTS) HOW MANY DRINKS DID YOU HAVE ON A TYPICAL DAY WHEN YOU WERE DRINKING IN THE PAST YEAR?1 OR 2 (0 POINTS) HOW OFTEN DID YOU HAVE A DRINK CONTAINING ALCOHOL IN THE PAST YEAR?MONTHLY OR LESS (1 POINT) POINTS1 INTERPRETATIONNEGATIVE RECREATIONAL DRUG USE DRUG USE?NO HAS MEDICAL MARIJUANA LEARNING BARRIERS / SPECIAL NEEDS CHANGE FROM LAST VISIT?NO BARRIERS TO LEARNING?NO HEARING IMPAIRED?NO VISION IMPAIRED?NO COGNITIVELY IMPAIRED?NO READINESS TO LEARN?YES LEARNING PREFERENCES?NO LEARNING CAPABILITIES PRESENT?YES EMOTIONAL BARRIERS?NO SPECIAL DEVICES?NO STORE DETECTIVE NEEDED?NO REVIEWED WITH PATIENT 01/06/19 0947 JSREVIEWED WITH PT 02/26/19 0854 BVREVIEWED WITH PATIENT 06/16/19 0915 JSPRE PROCEDURE PHONE INTERVIEW 08/01/2019 LAS08/04/2019 0858 REVIEWED WITH PT. AD. HOSPITALIZATION/MAJOR DIAGNOSTIC PROCEDURE SURGERY RELATED REVIEW OF SYSTEMS REVIEWED BY: PROVIDER: JIMBO TINAJERO . CONSTITUTIONAL: ANY CHANGE IN YOUR MEDICAL CONDITION? NO . CHILLS NO . FEVER NO . INFECTION: DO YOU HAVE NEW INFECTIONS? NO . DO YOU HAVE HISTORY OF MRSA? NO . MUSCULOSKELETAL: ANY NEW PATTERNS OF PAIN OR NUMBNESS? NO . GASTROENTEROLOGY: ANY NEW CHANGE IN BOWEL CONTROL? NO . GENITOURINARY: ANY NEW CHANGE IN BLADDER CONTROL? NO . IS THERE A CHANCE YOU COULD BE ? NO . HEMATOLOGY/LYMPH: DO YOU TAKE ANY BLOOD THINNERS? (FOR EXAMPLE- COUMADIN, PLAVIX, AGGRENOX, PLATEL, PRADAXA, OR XARELTO) NO . WHEN WAS YOUR LAST DOSE? DATE: TIME: . NEUROLOGY: HAVE YOU FALLEN IN THE PAST 12 MONTHS? NO . ANY NEW EXTREMITY NUMBNESS OR WEAKNESS? NO . CARDIOLOGY: DO YOU HAVE A PACEMAKER OR DEFIBRILLATOR? NO . RESPIRATORY: HAVE YOU BEEN SICK IN THE PAST WEEK? NO . FEVER NO . FLU LIKE SYMPTOMS? NO . COUGH NO . INTEGUMENTARY: DO YOU HAVE ANY RASHES OR OPEN SORES? NO . ALLERGIC/IMMUNO: ARE YOU ALLERGIC TO IV DYE? NO . ANY NEW ALLERGIES? NO . PSYCHIATRIC: DO YOU HAVE THOUGHTS OF HURTING YOURSELF OR SOMEONE ELSE? NO . ARE YOU ABUSED, NEGLECTED, OR IN AN UNSAFE ENVIRONMENT? NO . ENDOCRINOLOGY: ARE YOU DIABETIC? YES . OTHER: DO YOU NEED ANY PRESCRIPTIONS? NO . IF YES, PLEASE LIST: ____ . ANY NEW PROBLEMS WITH YOUR MEDICATIONS? NO . WHEN DID YOU LAST EAT? ____ . WHEN DID YOU LAST DRINK? ____ . WHAT DID YOU LAST DRINK? ____ . NAME OF PERSON DRIVING YOU HOME? ____ . DO YOU HAVE ANY OTHER QUESTIONS OR CONCERNS NO . 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 WE WILL HOLD OFF ON MEDICATION CHANGES UNTIL SHE HAS TRIED MEDICAL MARIJUANA ADJUSTMENTS. SHE WILL BE CONTACTING DR. CRUZ TO REQUEST A POWER CHAIR DUE TO ACTIVITY INTOLERANCE. WE WILL SEE HER BACK AT [facility] IN 6 WEEKS TO EVALUATE FOR INJECTION THERAPY. TOTAL TIME SPENT DURING THIS TELEPHONE VISIT WAS APPROXIMATELY 11 MINUTES. DISPOSITION & COMMUNICATION FOLLOW UP 6 WEEKS (REASON: LOW BACK PAIN) ELECTRONICALLY SIGNED BY LIOR ALTAMIRANO ON 10/28/2019 AT 11:17 AM EDT DISCLAIMER : THIS IS A VISIT SUMMARY EXTRACTED FROM THE [employer] CHART. IT IS NOT A COPY OF THE [employer] PROGRESS NOTE. JACINDA
== END ==
LOC: M PAIN 10:45
PROVIDERS: ATTEND Nurse Practitioner Family
DX: M48.062 Spinal stenosis, lumbar region with neurogenic claudication (principal); M46.1 Sacroiliitis, not elsewhere classified; I10 Essential (primary) hypertension; E11.9 Type 2 diabetes mellitus without complications; Z79.82 Long term (current) use of aspirin; Z79.84 Long term (current) use of oral hypoglycemic drugs; Z79.899 Other long term (current) drug therapy

== ENCOUNTER → 2019-12-10 | Outpatient (REF) | payer MEDICARE, BC | LOC: M LAB REF 10:49 | PROVIDERS: ATTEND Dermatology | DX: D04.30 Carcinoma in situ of skin of unspecified part of face (principal); L57.0 Actinic keratosis ==

== ENCOUNTER → 2019-12-11 | Outpatient (CLI) | payer MEDICARE, BC ==
--- NOTE | 2019-12-12 03:39 | ECWPNPC ---
PATIENT NAME: MATT MOORE : 1945 GENDER: FEMALE VISIT DATE: 12/11/2019 DISCHARGE DATE: 12/11/19920 VISIT LOCKED DATE TIME: PHYSICIAN: JIMBO BISHOP RESOURCE: JIMBO BISHOP REASON FOR APPOINTMENT 1. LOW BACK PAIN PAT DONE HISTORY OF PRESENT ILLNESS GENERAL: THIS IS A FOLLOW-UP VISIT FOR CHRONIC LOW BACK PAIN AND LOWER EXTREMITY PAIN AND WEAKNESS WITH A HISTORY OF LUMBAR SPINAL STENOSIS. PATIENT IS CURRENTLY USING MEDICAL MARIJUANA AND WITH RECENT ADJUSTMENTS . SHE IS FINDING HER PAIN LEVEL MORE TOLERABLE. CONTINUES TO REPORT ACTIVITY INTOLERANCE DUE TO LOWER EXTREMITY PAIN AND WEAKNESS. DR. WONG EVALUATED HER FOR MILD PROCEDURE, BUT HE FEELS THAT SHE WOULD NOT BE A GOOD CANDIDATE, BASED ON RECENT LUMBAR MRI IMAGING. HE SUGGESTED TRYING THERAPEUTIC LUMBAR FACET BLOCKS OR LUMBAR EPIDURAL STEROID INJECTIONS. AFTER DISCUSSING PAIN LEVEL TODAY AND POTENTIAL INCREASED RISK FOR DECREASED IMMUNE STATUS AND OUR CURRENT COVID 19 SITUATION SHE IS OPTING TO WAIT. -. FALL RISK SCREENING: SCREENING :NO FALLS REPORTED IN THE LAST YEAR PAIN SCREENING: PATIENT HAS A COMPLAINT OF ACUTE OR CHRONIC PAIN :YES LOCATION OF PAIN:LOW BACK INTENSITY OF PAIN (SCALE OF 1 TO 10):6 WHAT DOES YOUR PAIN FEEL LIKE:ACHING, CONTINOUS, SORE, SHOOTING DURATION:MAINLY DURING THE NIGHT PAIN IS INREASED BY:ACTIVITIES PAIN IS DECREASED BY:SITTING NURSING NOTE: -. PAIN CENTER INTAKE QUESTIONS: DO YOU HAVE A HISTORY OF MRSA? :NO DO YOU TAKE A BLOOD THINNERS? :NO DO YOU HAVE ANY BLEEDING DISORDERS? :NO ANY NEW NUMBNESS OR WEAKNESS IN YOUR LEGS OR ARMS? :NO ANY PACEMAKER,DEFIBRILLATOR, OR DORSAL COLUMN STIMULATOR? :NO DO YOU HAVE ANY RASHES OR OPEN SORES? :NO ARE YOU ALLERGIC TO IV DYE? :NO ARE YOU DIABETIC? :YES MANAGED WITH ORAL MEDICATIONS ANY NEW PROBLEMS WITH YOUR MEDICATIONS? :NO HAVE YOU RECEIVED A VACCINE IN THE PAST 30 DAYS? :NO DO YOU PLAN TO RECEIVE A VACCINE IN THE NEXT 21 DAYS? :NO DO YOU NEED ANY PRESCRIPTION? :NO DO YOU TAKE ANY IMMUNOSUPPRESSIVE MEDICATIONS? :NO CURRENT MEDICATIONS TAKING ALPHAGAN P 0.1 % SOLUTION 1 DROP INTO AFFECTED EYE OPHTHALMIC ONCE DAILY TAKING BYETTA 10 MCG PEN 10 MCG/0.04ML SOLUTION PEN-INJECTOR 0.02 ML UP TO 1 HOUR BEFORE BREAKFAST AND EVENING MEAL SUBCUTANEOUS TWICE A DAY TAKING MULTIVITAMIN ADULT TABLET ORALLY DAILY TAKING VITAMIN D 1000 UNIT TABLET 1 TABLET ORALLY ONCE A DAY TAKING VITAMIN B COMPLEX TABLET ORALLY DAILY TAKING VITAMIN C & D3/OMID HIPS 500-1000-20 MG-UNIT-MG CAPSULE ORALLY DAILY TAKING COQ-10 100 MG CAPSULE 1 CAPSULE WITH A MEAL ORALLY ONCE A DAY TAKING [id number] COMPLEX TABLET ORALLY DAILY TAKING ASPIR-81 81 MG TABLET DELAYED RELEASE 1 TABLET ORALLY ONCE A DAY TAKING METFORMIN HCL ER 750 MG TABLET EXTENDED RELEASE 24 HOUR ORAL BID TAKING CRESTOR 10 MG TABLET ORAL ONCE DAILY TAKING RAMIPRIL 5 MG CAPSULE ORAL ONCE DAILY TAKING SPIRONOLACTONE 25 MG TABLET ORAL ONCE DAILY TAKING SERTRALINE HCL 100 MG TABLET ORALLY ONCE DAILY TAKING LUMIGAN 0.01 % SOLUTION 1 DROP INTO AFFECTED EYE IN THE EVENING OPHTHALMIC OU DAILY TAKING ATENOLOL 25 MG TABLET ORAL ONCE DAILY TAKING NEXIUM 40 MG CAPSULE DELAYED RELEASE 1 CAPSULE ORALLY ONCE A DAY TAKING MAY HAVE - - MEDICAL MARIJUANA DAILY TAKING MELOXICAM 15 MG TABLET 1 TABLET ORALLY ONCE A DAY NOT-TAKING FEMARA 2.5 MG TABLET 1 TABLET ORALLY ONCE A DAY MEDICATION LIST REVIEWED AND RECONCILED WITH THE PATIENT PAST MEDICAL HISTORY BREAST CANCER LEFT WITH LYMPHEDEMA DIAGNOSED 2010 DM HTN ESOPHAGEAL STRICTURE RICHARD WITH CPAP CHRONIC BACK PAIN 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 SURGICAL HISTORY D/C HYSTERECTOMY BILATERAL MASTECTOMY 2010 INFUSAPORT INSERTED 2010 INFUSAPORT REMOVED 2011 EGD-DILATATION 08/2016 CATARACT SURGERIES-BOTH EYES 09/2106 FAMILY HISTORY FATHER: 70 YRS, DIAGNOSED WITH UNSPECIFIED HEART DISEASE MOTHER: 70 YRS, UNSPECIFIED HEART DISEASE, UNSPECIFIED CEREBRAL ARTERY OCCLUSION WITH CEREBRAL INFARCTION 1 SISTER(S) - HEALTHY. 1 SON(S) , 1 DAUGHTER(S) . 4 - BROTHERS ( AORTIC ANEURYSM, STROKE, CANCER ) SON - HTN, PSORIATIC ARTHRITIS , DAUGHTER- HEALTHY. SOCIAL HISTORY GENERAL: TOBACCO USE ARE YOU A:NONSMOKER LATEX QUESTIONNAIRE LATEX ALLERGY : HAVE YOU EVER DEVELOPED ANY TYPE OF REACTION AFTER HANDLING LATEX PRODUCTS SUCH RUBBER GLOVES, CONDOMS, DIAPHRAGMS, BALLOONS, SOCKS, OR UNDERWEAR?NO LATEX ALLERGY : HAVE YOU EVER DEVELOPED ANY TYPE OF REACTION DURING OR AFTER DENTAL APPOINTMENT, VAGINAL/RECTAL EXAMINATION, SURGICAL PROCEDURE, OR ANY OTHER EXPOSURE?NO LATEX RISK : HAVE YOU EVER HAD ANY DIFFICULTY BREATHING OR HIVES AFTER EATING OR HANDLING ANY FRUITS, OR VEGETABLES; SUCH KIWI, BANANAS, STONE FRUITS, OR CHESTNUTSNO LATEX RISK : DO YOU HAVE A PREVIOUS PERSONAL HISTORY OF MORE THAN NINE SURGERIES, SPINA BIFIDA, OR REPEATED CATHERIZATIONS? NO LATEX RISK : ARE YOU FREQUENTLY EXPOSED TO LATEX PRODUCTS IN YOUR OCCUPATION?NO DATE ASKED : 12/10/2019 ALCOHOL SCREENING DID YOU HAVE A DRINK CONTAINING ALCOHOL IN THE PAST YEAR?YES HOW OFTEN DID YOU HAVE SIX OR MORE DRINKS ON ONE OCCASION IN THE PAST YEAR?NEVER (0 POINTS) HOW MANY DRINKS DID YOU HAVE ON A TYPICAL DAY WHEN YOU WERE DRINKING IN THE PAST YEAR?1 OR 2 (0 POINTS) HOW OFTEN DID YOU HAVE A DRINK CONTAINING ALCOHOL IN THE PAST YEAR?MONTHLY OR LESS (1 POINT) POINTS1 INTERPRETATIONNEGATIVE RECREATIONAL DRUG USE DRUG USE?NO HAS MEDICAL MARIJUANA CAFFEINE CAFFEINE USE?NO ORTHODOXY [id number] JUDAISM LANGUAGE LANGUAGES SPOKEN:SLOVAK LEARNING BARRIERS / SPECIAL NEEDS CHANGE FROM LAST VISIT?NO BARRIERS TO LEARNING?NO HEARING IMPAIRED?NO VISION IMPAIRED?NO COGNITIVELY IMPAIRED?NO READINESS TO LEARN?YES LEARNING PREFERENCES?NO LEARNING CAPABILITIES PRESENT?YES EMOTIONAL BARRIERS?NO SPECIAL DEVICES?NO FINISH MOLDER NEEDED?NO DOMESTIC VIOLENCE DO YOU FEEL SAFE IN YOUR ENVIRONMENT?YES NEW PATIENT PAIN DIARY PATIENT DESCRIBES PAIN :OTHER FROM 0-10, WHAT LEVEL IS YOUR PAIN TODAY?5 PAIN CLINIC PFS, CLERGY, PUBLIC HEALTH REFERRALS PFS REFERRAL NEEDED?NO CLERGY REFERRAL NEEDED?NO PUBLIC HEALTH REFERRAL NEEDED?NO WAS THE PROVIDER NOTIFIED OF ANY PERTINENT INFO?YES N/A HAS THE PATIENT BEEN EDUCATED REGARDING HIS/HER PLAN OF CARE?YES HAS THE PATIENT BEEN EDUCATED REGARDING PAIN, THE RISK FOR PAIN, THE IMPORTANCE OF EFFECTIVE PAIN MANAGEMENT, AND THE PAIN ASSESSMENT PROCESS?YES ADVANCE DIRECTIVE ADVANCE DIRECTIVE DISCUSSED WITH PATIENT:YES STATES SHE HAS HCP-[facility] JOSE R MOORE II [phone] HOSPITALIZATION/MAJOR DIAGNOSTIC PROCEDURE SURGERY RELATED SQUAMOUS CELL REMOVAL FROM FOREHEAD 11/2019 REVIEW OF SYSTEMS CONSTITUTIONAL: ANY RECENT FEVER OR ILLNESS NO . CHILLS NO . GASTROENTEROLOGY: BOWEL INCONTINENCE NO . ANY NEW CHANGE IN BOWEL CONTROL? NO . ABDOMINAL PAIN NO . CONSTIPATION NO . GENITOURINARY: ANY NEW CHANGE IN BLADDER CONTROL? NO . IS THERE A CHANCE YOU COULD BE ? NO . URINARY INCONTINENCE NO . CARDIOLOGY: CHEST PRESSURE NO . CHEST PAIN NO . RESPIRATORY: COUGH NO . SHORTNESS OF BREATH NO . VITAL SIGNS WT 305.8 LBS, HT 65 IN, BMI 50.88 INDEX, BP 139/66 MM HG, HR 98 /MIN, RR 18 /MIN, TEMP 97.3 F, OXYGEN SAT % 98%, SAFE IN ENV? (Y/N) Y, NA INITIALS TL 0845, REVIEWED BY: STEPHENIE. EXAMINATION GENERAL EXAMINATION: GENERALAWAKE,ALERT ,PLEASANT . PSYCHAFFECT NORMAL . LUNGS:LUNG ISAACS ARE CLEAR TO AUSCULTATION BILATERALLY. GOOD MOVEMENT OF AIR . HEART:S1, S2 IN A REGULAR RATE AND RHYTHM. NO SIGNIFICANT MURMURS, RUBS OR GALLOPS NOTED . ASSESSMENTS SPINAL STENOSIS, LUMBAR REGION WITH NEUROGENIC CLAUDICATION - M48.062 (PRIMARY) SACROILIITIS - M46.1 TREATMENT SPINAL STENOSIS, LUMBAR REGION WITH NEUROGENIC CLAUDICATION CONTINUE MELOXICAM TABLET, 15 MG, 1 TABLET, ORALLY, ONCE A DAY NOTES: PATIENT WILL CONTINUE WITH MEDICAL MARIJUANA FOR PAIN CONTROL. CONTINUE MELOXICAM 15 MG DAILY THAT WE PRESCRIBE. ENCOURAGED TO CALL CLINIC IF HER PAIN ESCALATES. CONSIDER LUMBAR FACET BLOCK-THERAPEUTIC, LUMBAR FACET BLOCK-DIAGNOSTIC, OR LUMBAR EPIDURAL STEROID INJECTION. FOLLOW-UP AT PAIN CLINIC IS SCHEDULED IN 3 MONTHS. PROCEDURE CODES FA211 ESTABILISHED PATIENT [facility] CHARGE DISPOSITION & COMMUNICATION FOLLOW UP 3 MONTHS (REASON: LBP) ELECTRONICALLY SIGNED BY LIOR ALTAMIRANO ON 12/11/2019 AT 10:53 AM EDT DISCLAIMER : THIS IS A VISIT SUMMARY EXTRACTED FROM THE [facility] CHART. IT IS NOT A COPY OF THE [facility] PROGRESS NOTE. JACINDA
== END ==
LOC: M PAIN 08:45
PROVIDERS: ATTEND Nurse Practitioner Family
DX: M48.062 Spinal stenosis, lumbar region with neurogenic claudication (principal); M46.1 Sacroiliitis, not elsewhere classified

== ENCOUNTER 2020-03-05 19:09 | Emergency (ER) | payer MEDICARE, BC ==
[~2020-03-05] VITALS: Ht 165.1 cm; Wt 135.4 kg
[~2020-03-05 19:09] MED LIST changes: -ASPI81TA85 PO; +ASPI81TA86 PO
[2020-03-05 19:11] VITALS: BP 146/94
--- NOTE | 2020-03-05 20:34 | REPVR ---
PROCEDURE INFORMATION: Exam: CT Head Without Contrast Exam date and time: 03/05/2020 8:22 PM Age: 74 years old Clinical indication: Altered mental status/memory loss; Confusion or disorientation; Additional info: AMS TECHNIQUE: Imaging protocol: Computed tomography of the head without contrast. Radiation optimization: All CT scans at this facility use at least one of these dose optimization techniques: automated exposure control; mA and/or kV adjustment per patient size (includes targeted exams where dose is matched to clinical indication); or iterative reconstruction. COMPARISON: No relevant prior studies available. FINDINGS: Brain: There is mild to moderate age related parenchymal volume loss. White matter changes are demonstrated in the subcortical, centrum semiovale and periventricular white matter consistent with age related small vessel white matter angiopathic gliosis. Ventricles: The degree of ventricular dilatation is normal for age and/or degree of atrophy present. Bones/joints: Unremarkable. No acute fracture. Sinuses: Visualized sinuses are unremarkable. No fluid levels. Mastoid air cells: Visualized mastoid air cells are well aerated. Vasculature: Atherosclerotic calcifications are demonstrated in the intracranial carotid arteries bilaterally as well as in the vertebral basilar system. Soft tissues: Unremarkable. IMPRESSION: 1. There is mild to moderate age related parenchymal volume loss. White matter changes are demonstrated in the subcortical, centrum semiovale and periventricular white matter consistent with age related small vessel white matter angiopathic gliosis. 2. The degree of ventricular dilatation is normal for age and/or degree of atrophy present. 3. No acute intracranial abnormalities. Electronically signed by: Josué Shane On 03/05/2020 20:34:54 PM
--- NOTE | 2020-03-05 20:52 | REPVR ---
PROCEDURE INFORMATION: Exam: XR Chest, 1 View Exam date and time: 03/05/2020 8:42 PM Age: 74 years old Clinical indication: Chest pain; Type not specified TECHNIQUE: Imaging protocol: XR of the chest Views: 1 view. COMPARISON: CR Chest, 2 view PA, Lat 09/25/2015 7:56 PM FINDINGS: Lungs: Unremarkable. No consolidation. Pleural space: Unremarkable. No pleural effusion. No pneumothorax. Heart/Mediastinum: Unremarkable. No cardiomegaly. Bones/joints: Unremarkable. IMPRESSION: No acute findings. Electronically signed by: Josué Shane On 03/05/2020 20:52:57 PM
[2020-03-05 21:23] LABS: BASO % 0.4 % (0.0-1.0); EOS # 0.2 10^3/uL (0.0-0.5); EOS % 2.4 % (0.0-3.0); HEMATOCRIT 36.1 % (36.0-47.0); HEMOGLOBIN 11.2 g/dl (12.0-15.5); LYMPH # 1.2 10^3/uL (1.5-5.0); LYMPH % 16.2 % (24.0-44.0); MEAN CORPUSCULAR VOLUME 96.8 fl (80.0-96.0); MONO # 0.6 10^3/uL (0.0-0.8); MONO % 8.2 % (0.0-5.0); NEUTROPHILS # 5.1 10^3/uL (1.5-8.5); PLATELET COUNT, AUTOMATED 216 10^3/uL (150-450); RED BLOOD COUNT 3.73 10^6/uL (4.00-5.40); WHITE BLOOD COUNT 7.1 10^3/uL (4.0-10.0)
[2020-03-05 21:59] LABS: ALBUMIN 4.1 GM/DL (3.2-5.2); ALT/SGPT 34 U/L (12-78); BILIRUBIN,DIRECT 0.1 MG/DL (0.0-0.2); BILIRUBIN,TOTAL 0.3 MG/DL (0.2-1.0); BLOOD UREA NITROGEN 27 MG/DL (7-18); CALCIUM LEVEL 9.3 MG/DL (8.8-10.2); CARBON DIOXIDE LEVEL 25 MEQ/L (21-32); CHLORIDE LEVEL 113 MEQ/L (98-107); CK-MB VALUE MASS < 1.0 NG/ML (<3.6); CPK CREATINE PHOSPHOKINASE 57 U/L (26-192); CREATININE FOR GFR 1.15 MG/DL (0.55-1.30); GLUCOSE, FASTING 106 MG/DL (70-100); LIPASE 400 U/L (73-393); MB/CK RELATIVE INDEX 1.75 (< OR =4); NT-PRO BNP 422 PG/ML (<450); POTASSIUM SERUM 4.9 MEQ/L (3.5-5.1); SODIUM LEVEL 139 MEQ/L (136-145); TOTAL PROTEIN 7.2 GM/DL (6.4-8.2); TROPONIN I < 0.02 NG/ML (< 0.10)
--- NOTE | 2020-03-24 16:37 | ECGEPIP ---
[facility] - ED Test Date: 2020-03-05 Pat Name: Inez Rg Department: Room: 14 Gender: Male Vice President Of Customer Service: jesus : 1945 Requested By: CAROLIN Hargrove Order Number: [id number] Reading MD: Tom Juarez Measurements Intervals Farrell Rate: 78 P: 36 TN: 141 QRS: -5 QRSD: 95 T: 12 QT: 372 QTc: 425 Interpretive Statements SINUS RHYTHM NORMAL ECG SEE SCANNED DOWNTIME REPORT
== END 2020-03-05 22:56 | disposition home or self-care (01) ==
LOC: M ED 19:09
DX: I10 Essential (primary) hypertension (principal); E11.9 Type 2 diabetes mellitus without complications; K21.9 Gastro-esophageal reflux disease without esophagitis; Z79.82 Long term (current) use of aspirin; Z79.84 Long term (current) use of oral hypoglycemic drugs; Z79.899 Other long term (current) drug therapy

== ENCOUNTER 2023-02-24 19:08 | Emergency (ER) | payer MEDICARE, BC ==
[~2023-02-24] VITALS: Ht 165.1 cm; Wt 129.6 kg
[2023-02-24] MEDS ORDERED: MECLIZINE 25 MG TABLET PO ONE (20:40)
[2023-02-24 21:01] LABS: BASO % 0.5 % (0.0-1.0); EOS # 0.1 10^3/uL (0.0-0.5); EOS % 1.7 % (0.0-3.0); HEMATOCRIT 37.7 % (36.0-47.0); HEMOGLOBIN 12.1 g/dl (12.0-15.5); LYMPH # 0.9 10^3/uL (1.5-5.0); LYMPH % 12.2 % (24.0-44.0); MEAN CORPUSCULAR HEMOGLOBIN 30.1 pg (27.0-33.0); MEAN CORPUSCULAR HGB CONC 32.1 g/dl (32.0-36.5); MEAN CORPUSCULAR VOLUME 93.8 fl (80.0-96.0); MONO # 0.5 10^3/uL (0.0-0.8); MONO % 6.8 % (2.0-8.0); NEUTROPHILS % 77.8 % (36.0-66.0); PLATELET COUNT, AUTOMATED 227 10^3/uL (150-450); RED BLOOD COUNT 4.02 10^6/uL (4.00-5.40); WHITE BLOOD COUNT 7.7 10^3/uL (4.0-10.0)
[2023-02-24 21:16] LABS: INR 1.01; PARTIAL THROMBOPLASTIN TIME 31.4 SECONDS (24.8-34.2)
[2023-02-24 21:25] LABS: CK-MB VALUE MASS < 1.0 NG/ML (<3.6)
[2023-02-24 21:27] LABS: BLOOD UREA NITROGEN 17 MG/DL (9-23); CALCIUM LEVEL 9.2 MG/DL (8.3-10.6); CARBON DIOXIDE LEVEL 28 MMOL/L (20-31); CHLORIDE LEVEL 104 MMOL/L (98-107); CREATININE FOR GFR 0.82 MG/DL (0.55-1.30); GLOMERULAR FILTRATION RATE > 60.0 (>39); GLUCOSE, FASTING 102 MG/DL (74-106); POTASSIUM SERUM 4.6 MMOL/L (3.5-5.1); SODIUM LEVEL 141 MMOL/L (136-145)
[2023-02-24 21:28] LABS: CPK CREATINE PHOSPHOKINASE 50 U/L (34-145)
[2023-02-24 21:37] LABS: RSV AMPLIFICATION NEGATIVE (NEGATIVE)
[2023-02-24 23:19] LABS: CK-MB VALUE MASS < 1.0 NG/ML (<3.6)
[2023-02-24 23:36] LABS: CPK CREATINE PHOSPHOKINASE 54 U/L (34-145); MB/CK RELATIVE INDEX 1.85 (< OR =4)
[2023-02-25] MEDS ORDERED: MECL1TAB31 PO (00:18)
[2023-02-25 00:28] VITALS: BP 142/66; TEMP 97.7; O2SAT 94
== END 2023-02-25 00:49 | disposition home or self-care (01) ==
LOC: M ED 19:08
DX: H81.4 Vertigo of central origin (principal); E11.9 Type 2 diabetes mellitus without complications; Z85.3 Personal history of malignant neoplasm of breast; K22.2 Esophageal obstruction; I10 Essential (primary) hypertension; Z79.899 Other long term (current) drug therapy; Z79.82 Long term (current) use of aspirin; Z79.84 Long term (current) use of oral hypoglycemic drugs

== ENCOUNTER → 2023-09-18 | Outpatient (REF) | payer MEDICARE, BC ==
[~2023-09-18] MED LIST changes: +MECL-209 PO
== END ==
LOC: M SFHCDERM 18:00
PROVIDERS: ATTEND Physician Assistant
DX: D49.2 Neoplasm of unspecified behavior of bone, soft tissue, and skin (principal)

== ENCOUNTER → 2025-06-19 | Outpatient (REF) | payer MEDICARE, BC ==
[~2025-06-19] MED LIST changes: -RAMI1CAP24 PO; +RAMI5CAP60 PO
[2025-06-19 11:42] LABS: BASO # 0.0 10^3/uL (0.0-0.2); BASO % 0.7 % (0.0-1.0); EOS # 0.2 10^3/uL (0.0-0.5); EOS % 2.5 % (0.0-3.0); LYMPH # 1.1 10^3/uL (1.5-5.0); LYMPH % 17.8 % (24.0-44.0); MONO # 0.4 10^3/uL (0.0-0.8); MONO % 6.9 % (2.0-8.0); NEUTROPHILS # 4.3 10^3/uL (1.5-8.5); NEUTROPHILS % 70.6 % (36.0-66.0); PLATELET COUNT, AUTOMATED 193 10^3/uL (150-450)
[2025-06-19 12:08] LABS: ALT/SGPT 26.0 U/L (7.0-40); AST/SGOT 19.0 U/L (<34); CALCIUM LEVEL 9.0 MG/DL (8.3-10.6); CARBON DIOXIDE LEVEL 30.0 MMOL/L (20-31); CHLORIDE LEVEL 104.0 MMOL/L (98-107); CREATININE FOR GFR 1.02 MG/DL (0.55-1.30); GLOMERULAR FILTRATION RATE 55.6 (>32); POTASSIUM SERUM 4.3 MMOL/L (3.5-5.1); SODIUM LEVEL 142.0 MMOL/L (136-145)
[2025-06-19 12:10] LABS: ESTIMATED AVERAGE GLUCOSE 126.0 MG/DL (60-110)
== END ==
PROVIDERS: ATTEND Internal Medicine
DX: N18.30 Chronic kidney disease, stage 3 unspecified (principal); E11.42 Type 2 diabetes mellitus with diabetic polyneuropathy; Z85.3 Personal history of malignant neoplasm of breast